=== PATIENT | male | born 1940 | race Caucasian/White ===

== ENCOUNTER 2016-05-18 06:26 | Inpatient (IN) ==
[2016-05-18] MEDS ORDERED: CeFAZolin Pre 2,000 MG/100 ML 2,000 MG/100 ML BAG IVPB ONE (07:05)
[2016-05-18] MEDS ORDERED: Vancomycin 1,250 MG in D5% in Water 250 ML IVPB ONE ×2 (07:05→19:15)
[2016-05-18] MEDS ORDERED: Albuterol 2.5 MG/3 ML NEBULIZER IH ONE (07:05)
[2016-05-18] MEDS ORDERED: Ringers Solution, Lactated 1,000 ML IVC SCH (07:15)
[2016-05-18] MEDS ORDERED: Heparin 1,000 UNITS/500 mL NS 500 ML ONE (07:57)
--- NOTE | 2016-05-18 08:03 | History & Physical Report ---
Date of Encounter: 05/18/16 Time of Encounter: 07:58 24 Hour HP Update - Instructions Instructions: If the History and Physical is less than 30 days old and was completed prior to A.M. admission and or procedure and has NOT been updated on calendar day of procedure please complete this update prior to performing procedure. - Update Patient reports changes in Medical Condition: No Changes in assessment/condition: No Changes in Medication: No Preop tests/diagnostics Reviewed: Yes Surgery Remains Indicated: Yes Consent for Planned Operative Procedure(s) Verified: Yes - Pre-Operative Checklist Preoperative Checklist Indicated: Yes Prophylactic Antibiotic Ordered: Yes (Vancomycin due to MRSA risk) Home Medications Include Beta Patsy: Yes Beta Patsy Taken Today (Day of Surgery): Yes Beta Patsy Taken Yesterday (Day Prior to Surgery): Yes Is VTE Prophylaxis Indicated?: Yes
--- NOTE | 2016-05-18 08:05 | Anesthesia Evaluation PreOp ---
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 (hx CEA; other carotid completely occluded) Other Medical History: Renal (kidney mass being worked up) Anesthesia History: No Prior Anesthetic Complications Alcohol Use: none Drug use: none Medications and Allergies Aspirin 81 mg PO DAILY 05/18/16 [History] Atenolol [Tenormin] 50 mg PO DAILY 05/18/16 [History] Atorvastatin [Lipitor] 40 mg PO HS 05/18/16 [History] Clopidogrel [Plavix] 75 mg PO DAILY 05/18/16 [History] Docusate [Colace] 100 mg PO BID 05/18/16 [History] Hydrocodone/Acetaminophen [[place] 5-325 Tablet] 1 tab PO TID PRN 05/18/16 [ History] Isosorbide MONOnitrate (24 HR) [Imdur] 60 mg PO DAILY 05/18/16 [History] Losartan [Cozaar] 25 mg PO DAILY 05/18/16 [History] Nitroglycerin [Nitrostat] 0.4 mg SL AD PRN 05/18/16 [History] Omeprazole [PriLOSEC] 20 mg PO DAILY 05/18/16 [History] Ranolazine [Ranexa] 500 mg PO BID 05/18/16 [History] Allergies pentazocine [From Talwin] Allergy (Verified 05/18/16 06:55) See Comments simvastatin Allergy (Verified 05/18/16 06:55) See Comments Varenicline [From Chantix] Allergy (Verified 05/18/16 06:55) See Comments Amoxicillin [From Augmentin] Adverse Reaction (Verified 05/18/16 06:55) Nausea clavulanic acid [From Augmentin] Adverse Reaction (Verified 05/18/16 06:55) Nausea codeine Adverse Reaction (Verified 05/18/16 06:55) Nausea - Meds/Allergy Pre-op Review Medications Reviewed: Yes Allergies Reviewed: Yes Beta Blockers on Current Med List: Yes If Beta Blockers taken, Date/Time (Last Dose taken): 05-17-16 atenolol 8 pm Anesthesia Results - Labs Laboratory Tests 05/15/16 05/15/16 05/15/16 14:21 14:21 14:21 WBC 7.5 Hgb 13.1 Hct 39.9 Plt Count 164 PT 14.0 H INR 1.3 APTT 30.9 Sodium 139 Potassium 5.0 H Chloride 110 H Carbon Dioxide 25 BUN 19 Creatinine 1.25 Est GFR ( Amer) > 60 Est GFR (Non-Af Amer) 56 L BUN/Creatinine Ratio 15 Glucose 127 H - Imaging EKG: report reviewed, image reviewed (SB with first degree AVB, RBBB, inferior PA indeterminate age) Anesthesia Exam Last Vital Signs Temp 98.1 F 05/18/16 07:07 Pulse 64 05/18/16 07:07 Resp 18 05/18/16 07:07 BP 115/80 05/18/16 07:07 Pulse Ox 98 05/18/16 07:07 Weight: 76 kg NPO (# of Hours): >> 8 hrs - HEENT Pupil (Motor): Pupils equal, EOMI Mallampati: III Teeth: Poor dentition Oral Opening: Greater than 3 - 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
[2016-05-18] MEDS ORDERED: Heparin 1,000 UNITS/500 mL NS 1,500 ML ONE (08:08)
[2016-05-18] MEDS ORDERED: Vancomycin 1,000 MG VIAL ONE (08:08)
[2016-05-18] MEDS ORDERED: Lidocaine -MPF 2% 2 ML VIAL ONE ×2 (08:11→08:26)
[2016-05-18] MEDS ORDERED: Ondansetron 4 MG/2 ML VIAL ONE (08:11)
[2016-05-18] MEDS ORDERED: *HR* Phenylephrine 10 MG/ML VIAL ONE (08:11)
[2016-05-18] MEDS ORDERED: *HR* Succinylcholine 200 MG/10 ML VIAL IVP ONE (08:11)
[2016-05-18] MEDS ORDERED: Dexamethasone 4 MG/ML VIAL ONE (08:11)
[2016-05-18] MEDS ORDERED: *HR* Etomidate 40 MG/20 ML VIAL IVP ONE (08:11)
[2016-05-18] MEDS ORDERED: *HR* FentaNYL (PF) 100 MCG/2 ML VIAL ONE (08:17)
[2016-05-18] MEDS ORDERED: *HR* Midazolam HCl 2 MG/2 ML VIAL ONE ×2 (08:17→11:53)
[2016-05-18] MEDS ORDERED: EPHEDrine 50 MG/ML VIAL ONE (08:34)
[2016-05-18] MEDS ORDERED: *HR* Remifentanil 1 MG VIAL IVP ONE (09:10)
[2016-05-18] MEDS ORDERED: *HR* Heparin 5,000 UNIT/ML VIAL ONE ×2 (09:22→10:55)
[2016-05-18] MEDS ORDERED: *HR* HYDROmorphone (PF) 1 MG/ML SYRINGE IVP PRN (09:38)
[2016-05-18] MEDS ORDERED: *HR* Labetalol 100 MG/20 ML MDV IVP PRN (09:38)
[2016-05-18] MEDS ORDERED: *HR* EPINEPHrine 1 MG/ML AMPUL ONE (12:16)
[2016-05-18 12:23] LABS: ABG Base Excess -12.7 mEq/L (-2.0 to 3.0); ABG Glucose 201 mg/dL (60-95); ABG HCO3 16.8 mEQ/L (21-27); ABG Hematocrit 23 % (35-51); ABG Ionized Calcium 1.17 mmol/L (1.15-1.35); ABG Oxygen Saturation 100 % (95-98); ABG PCO2 58 mmHg (35-45); ABG PH 7.07 pH Units (7.32-7.45); ABG PO2 346 mmHg (85-104); ABG TCO2 18.6 mEq/L (20-26)
[2016-05-18 12:27] LABS: Blood Gas FiO2 100 %
[2016-05-18] MEDS ORDERED: *HR* Midazolam HCl 5 MG/5 ML VIAL IVP ONE ×2 (12:37→15:17)
[2016-05-18] MEDS ORDERED: *HR* Magnesium Sulfate 2 GM/50 ML PIGGYBACK IVPB ONE (12:51)
[2016-05-18] MEDS ORDERED: *HR* EPINEPHrine 30 MG/30 ML MDV IM ONE (12:51)
[2016-05-18] MEDS ORDERED: FentaNYL (PF) 1,000 MCG in 0.9 % Sodium Chloride 80 ML IVC SCH (13:00)
[2016-05-18] MEDS: FentaNYL (PF) 1,000 MCG in 0.9 % Sodium Chloride 80 ML IVC SCH ×2 (13:00→19:27)
--- NOTE | 2016-05-18 13:09 | Operative Note ---
Date of procedure: 05/18/16 Pre-op diagnosis: Abdominal Aortic Aneurysm Post-op diagnosis: same Procedure: 1. Introduction of catheter into the aorta via right common femoral artery. 2. Introduction of catheter into the aorta via left common femoral artery. 3. Right femoral vessel exposure for endograft placement. 4. Left femoral vessel exposure for endograft placement. 5. Endograft repair of abdominal aortic aneurysm with Cook Zenith graft and one docking limb including radiologic supervision and interpretation. Anesthesia: GETA Surgeon: Salvador Bosch Co-Surgeon: Shoaib Ruiz Estimated blood loss (cc): 400 Specimen: None Condition: stable Disposition: PACU Procedure in Detail: Indications: The patient is a 75 year old male with a history of coronary artery disease, hypertension, hyperlipidemia and an abdominal aortic aneurysm. He previously underwent an end-to side aorto-right femoral-left external iliac artery bypass for peripheral vascualar disease at another hospital. He then developed aneurysmal degeneration of the aorta including the anastamosis. Given his risk of rupture, repair was recommended. Procedure: The patient was identified, brought to the operating room and placed in the supine position on the operating room table. After induction of general endotracheal anesthesia, the patient was cleaned and draped in normal sterile fashion. A two surgeon approach was utilized in order to reduce the patients operative an minimize the risk of complications associated with prolonged anesthesia. A two surgeon approach was also utilized due to the complex nature of his condition and the need for intraoperative decision making. Oblique incisions were made over both groins sharply. Hemostasis was obtained with electrocautery. Using blunt and sharp and electrocautery dissection, the bilateral common, deep and superficial femoral arteries were dissected circumferentially and surrounded with Vesseloops. At this point, the patient received 5000 units of heparin intravenously and then bilateral femoral punctures with large-bore needles were performed. Bentson wires were advanced through the bypass graft limbs into the aorta under fluoroscopic view. Given the anatomy, the main body was selected to be the right side of the patient. The needles were exchanged for bilateral sheaths. On the left, an additional sheath was placed and a third wire was advanced through the [place] iliac vessels into the aorta. A long Pigtail catheter was advanced over the right wire into the aortic arch. The wire was replaced with a Lunderquist wire. The catheter was removed and repositioned in the suprarenal aorta via the left graft limb wire. The main body was inserted over the Lunderquist wire with the contralateral limb being in the anterolateral position. An aortogram was then performed at the level of the renal artery. The graft was positioned just inferior to the renal arteries and the first 2 segments were deployed. Again an aortogram revealed adequate infrarenal placement. The graft was then further opened to the contralateral limb exposed. A final angiogram was performed confirming adequate infrarenal placement. The suprarenal stent was deployed in the usual fashion. Attempts were made to select the contralateral limb, however, due to the angle of the bypass graft, the limb could not be cannulated through the left bypass graft limb. The remaining portion of the main body was deployed, the top cap was retrieved and the introducer was removed. An oblique view of the right pelvis was performed to determine the length of the graft on the right. The graft extension was then advanced on the right and positioned in the usual fashion. The contralateral limb was then selected through the [place] iliac artery with a guiding catheter. Intragraft placement of the wire was confirmed by placing the catheter in the graft and spinning it freely as well as injecting a small amount of contrast. A retrograde angiogram was performed to determine the length of the left limb of the graft. At this point, the patient experienced severe hypotension. His recent angiogram revealed no extravasation of contrast and his abdomen was soft. Chest compressions were initiated. Tension was applied to the Vessel loops in the groin. The bilateral sheaths and wires were then removed. The bilateral arteriotomies were repaired with a running 6-0 Prolene. Antibiotic irrigation was infused into the groin. Platelet rich and platelet poor plasma were infused into the incisions. The bilateral groins were closed with a single layer of 2- 0 Vicryl followed by two layers of 3-0 Vicryl followed by a layer of 3-0 monocryl in the subcuticular region. Sterile dressings were applied. The patient was then extubated and taken to the recovery room in stable condition.
[2016-05-18 13:29] LABS: Basophils % 0.1 %; Eosinophils # 0.2 K/mcL (0.0-0.6); Eosinophils % 1.2 %; Immature Granulocytes % 2.4 % (0-4); Lymphocytes # 2.7 K/mcL (0.6-4.6); Lymphocytes % 19.9 %; Mean Corpuscular Hemoglobin 31.6 pg (28.0-33.3); Mean Corpuscular Volume 95.7 fL (83.0-100.0); Mean Platelet Volume 9.5 fL (9.4-12.4); Monocytes # 0.5 K/mcL (0.0-1.3); Monocytes % 3.4 %; Neutrophils # 9.9 K/mcL (1.6-8.9); Platelet Count 103 K/mcL (140-400); Red Blood Count 2.82 M/mcL (4.19-5.50); Red Cell Distribution Width 15.4 % (11.5-14.5)
[2016-05-18 13:30] LABS: Hemoglobin 8.9 g/dL (12.9-16.9)
[2016-05-18] MEDS ORDERED: Norepinephrine 4 MG in D5% in Water 250 ML IVC SCH (13:30)
[2016-05-18 13:34] LABS: INR 1.4; Prothrombin Time 15.4 Seconds (9.4-12.1)
[2016-05-18 13:42] LABS: Alanine Aminotransferase 9 Units/L (0-55); Albumin/Globulin Ratio 1.3 (1.1-2.2); Alkaline Phosphatase 38 Units/L (38-126); Aspartate Amino Transferase 11 Units/L (5-34); BUN/Creatinine Ratio 19 (6-26); Bilirubin,Total 0.4 mg/dL (0.2-1.2); Blood Urea Nitrogen 18 mg/dL (8-26); Carbon Dioxide 21 mEq/L (19-29); Chloride 111 mEq/L (98-109); Globulin 1.2 g/dL (2.4-3.5); Glucose 282 mg/dL (70-99); Magnesium 2.3 mg/dL (1.6-2.6); Osmolality,Calculated 304 (280-300); Phosphorous 4.6 mg/dL (2.3-4.7); Sodium 141 mEq/L (136-145); eGFR For African Americans > 60 (> 60); eGFR For Non-African Americans > 60 (> 60)
[2016-05-18 13:44] LABS: Albumin 1.6 g/dL (3.5-5.0); Calcium 6.6 mg/dL (8.6-10.8); Potassium 3.6 mEq/L (3.5-4.5); Total Protein 2.8 g/dL (6.0-8.3)
--- NOTE | 2016-05-18 13:58 | Cardiology Consult Note ---
Date of Encounter: 05/18/16 Time of Encounter: 13:54 Assessment and Plan (1) Cardiac arrest Current Visit: Yes Status: Acute Mr. Rosado had cardiac arrest during his abdominal aortic aneurysm endograft surgery performed 05/18/2016. After regaining a pulse he required synchronized cardioversion 2 in the OR for sustained ventricular tachycardia thereafter he was transferred to the ICU requiring synchronized cardioversion 1 for sustained ventricular tachycardia. Patient is currently intubated and requiring vasopressor support in the ICU. Mr. Rosado has a significant cardiovascular history is likely contributing to his current state. Patient follows up with Cardiology in [place], documentation to be requested. EKG demonstrates RBBB Cardiac history: Patient left heart catheterization at [facility] January 2011 that demonstrated mild mitral regurgitation and inferior hypokinesis. EF 50%. Left main normal. LAD proximal stent patent, midportion occluded. HILL to distal LAD patent. Terminal LAD occluded. Left collaterals noted. Circumflex mid 50 % stenosis. OM1 ostial 90% stenosis. RCA occluded. SVG to RCA occluded. Left to right collaterals noted. Carotid angiogram January 2011 at [facility] demonstrated right ICA patent status post CEA. A left ICA occluded. Adequate therapy was recommended at that time. Abdominal arteriogram on January 2011 at [facility] demonstrated left renal artery stent patent. Right renal artery 80-90% proximal stenosis. Large infrarenal aneurysm. Aorta to right from oral and aorta to left iliac bypass widely patent. Pharmacologic nuclear stress test performed at [facility] December 2012 demonstrates large partially reversible apical to basal inferior and inferior lateral defect with associated severe hypokinesis. Findings were consistent with ischemia in addition to prior [place]. Echocardiogram December 2012 at [facility] demonstrated EF of 55%. Mild concentric left ventricular hypertrophy. Pseudo-normal mitral inflow pattern. Mitral pulmonary hypertension. No significant valvular dysfunction noted. Neck CT angiogram August 2009 at [facility] demonstrate left main distal nonobstructing plaque. LAD proximal headache calcification precluding assessment. Occluded mid LAD. Diagonal branches not well assessed. Circumflex nonobstructing proximal calcification. OM1 small. ON to heavily calcified precluding analysis. RCA occluded at the ostium. Distal RCA fill via collaterals. HILL to LAD patent. Carotid duplex scan December 2012 at [facility] demonstrate right common carotid right internal carotid mild stenosis. No stenosis of left common carotid. Severe stenosis at the bifurcation. Severe stenosis of the internal carotid artery. Carotid duplex scan August 2015 demonstrates right ICA has severe 60-79% stenosis. Left ICA has non-stenotic plaque. CT of the abdomen and pelvis with contrast on August 2015 demonstrates abdominal aortic aneurysm increased in size measures 6.5 cm in transverse dimension, increased compared to 5.8 cm on a previous study. Complex left renal mass which is stable in size and appearance. New small complex mass of the left lower kidney concerning for a second neoplasm. 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 Plan: - Continue stabilize patient status post cardiac arrest per pulmonary ICU team. - Patient is hypotensive continue to hold antihypertensive medications including his beta [place]. - Plan to restart atorvastatin when patient is extubated and passed a swallow test. - Patient status post AAA endograft performed today continue to hold Plavix and aspirin. - Hold Ranexa. - Echocardiogram performed at patient bedside results pending. - Start Amiodarone drip for rhythm stabilization. (2) CAD (coronary artery disease) Current Visit: Yes Status: Acute Patient's significant coronary artery disease as listed above. Qualifiers: Qualified Code(s): I25.10 - Atherosclerotic heart disease of [place] coronary artery without angina pectoris (3) PAD (peripheral artery disease) Current Visit: Yes Status: Acute Patient has known history of peripheral artery disease with claudication. Patient follows up with Dr. Bosch. Continue to monitor peripheral vascular flow during inpatient stay. (4) Abdominal aortic aneurysm Current Visit: Yes Status: Acute Patient has a known abdominal aortic aneurysm for which he was admitted and underwent endograft repair. The size of the aneurysm is 4.8 x 6.54cm. we will defer management and care status post procedure vascular team. Qualifiers: Qualified Code(s): I71.4 - Abdominal aortic aneurysm, without rupture (5) HTN (hypertension) Current Visit: Yes Status: Acute Patient has known history of hypertension for which he was taking Cozaar and atenolol. Patient is currently hypotensive status post cardiac arrest requiring vasopressor support. Plan to continue holding antihypertensives at this time. Qualifiers: Qualified Code(s): I10 - Essential (primary) hypertension (6) HLD (hyperlipidemia) Current Visit: Yes Status: Acute Patient's known history of hyperlipidemia. Plan to continue management as patient stabilizes. Qualifiers: Qualified Code(s): E78.5 - Hyperlipidemia, unspecified (7) Carotid artery disease Current Visit: Yes Status: Acute Patient has known history of carotid artery stenosis as discussed above. Qualifiers: Qualified Code(s): I77.9 - Disorder of arteries and arterioles, unspecified (8) Tobacco abuse Current Visit: Yes Status: Acute Patient is a current every day smoker likely contributing to his diffuse vascular disease. (9) Metabolic acidosis Current Visit: Yes Status: Acute Patient is status post cardiac arrest currently intubated in the ICU requiring vasopressor support. Lactic acid is 7.6, pH is 7.07, PCO2 58, PO2 346, bicarbonate 16.8, CO2 18.6, O2 saturation 100%. Anion gap: 12. Metabolic acidosis secondary to cardiac arrest. Plan: Patient per ICU team. Discussion w patient/family: The assessment and plan as outlined above was discussed with the patient and/or family members who expressed understanding and agreement. All questions were answered. Thank you for involving us in the care of your patient. Please call with any questions. History of Present Illness Consult date: 05/18/16 Requesting physician: Georgi Holt Consult reason: Cardiac Arrest Chief complaint: Cardiac Arrest History of present illness: Mr. Rosado is a 75 year old male with known history of CAD, CABG x2, HTN, HLD, PAD with claudication with history of femoral bypass, Abdominal Aortic Aneurysm , Iliac aneurysm, Cardiac Stent, Carotid stenosis, Renal artery stenosis was admitted to the ICU s/p cardiac arrest while undergoing endograph repair of his abdominal aortic aneurysm measuring 4.8x6.54cm. Patient required 2 rounds of synchronized cardioversion in the OR prior to transfer and Upon arrival to the ICU he required cardioversion for sustained v-tach. History for required surgery : developed an infrarenal abdominal aortic aneurysm and the proximal anastamosis of his aortobifemoral bypass arises from the aneurysm. Past Med Surg Social Fam HX - Past Medical History Medical history: aortic aneurysm, GERD Psychiatric history: no psych history - Past Surgical History Surgical History: carotid endarterectomy - Social History Smoking Status: Current every day smoker Packs per day: 1 Smokeless Tobacco Status: No Alcohol use: none Drug use: none Medications and Allergies Aspirin 81 mg PO DAILY 05/18/16 [History] Atenolol [Tenormin] 50 mg PO DAILY 05/18/16 [History] Atorvastatin [Lipitor] 40 mg PO HS 05/18/16 [History] Clopidogrel [Plavix] 75 mg PO DAILY 05/18/16 [History] Docusate [Colace] 100 mg PO BID 05/18/16 [History] Hydrocodone/Acetaminophen [[place] 5-325 Tablet] 1 tab PO TID PRN 05/18/16 [ History] Isosorbide MONOnitrate (24 HR) [Imdur] 60 mg PO DAILY 05/18/16 [History] Losartan [Cozaar] 25 mg PO DAILY 05/18/16 [History] Nitroglycerin [Nitrostat] 0.4 mg SL AD PRN 05/18/16 [History] Omeprazole [PriLOSEC] 20 mg PO DAILY 05/18/16 [History] Ranolazine [Ranexa] 500 mg PO BID 05/18/16 [History] Allergies pentazocine [From Talwin] Allergy (Verified 05/18/16 06:55) See Comments simvastatin Allergy (Verified 05/18/16 06:55) See Comments Varenicline [From Chantix] Allergy (Verified 05/18/16 06:55) See Comments Amoxicillin [From Augmentin] Adverse Reaction (Verified 05/18/16 06:55) Nausea clavulanic acid [From Augmentin] Adverse Reaction (Verified 05/18/16 06:55) Nausea codeine Adverse Reaction (Verified 05/18/16 06:55) Nausea ROS unobtainable: due to endotracheal tube All Systems Review: A 10-system review of systems was performed and is negative for pertinent findings except as documented above in the HPI. Physical Examination Other: Gen: 5-year-old male intubated and sedated in the ICU. HEENT: Normocephalic, atraumatic, pupils symmetric, mucous membranes are moist and pale, endotracheal tube is in oral cavity, neck is supple trachea midline. Chest: Symmetric bilateral correlating with mechanical ventilator support. Cardiac: Tachycardic, no murmurs were appreciated upon auscultation Respiratory: Lung sounds were diminished in all lung [place], no crackles or wheezing were appreciated upon auscultation. Midsternal scar from previous CABG was visualized. Abdomen: Soft, bilateral inferior abdominal incision sites were clear of drainage and covered with dressing. Abdominal aortic pulses palpable. Extremities: All 4 extremities were symmetric bilateral, pulses were diminished and radial dorsal pedal posterior tibial comparable and bilateral extremities. Skin was warm and pale. Results 05/18/16 13:15 05/18/16 13:15 Lab Results 05/18/16 05/18/16 05/18/16 13:15 13:15 13:15 WBC 13.6 H D Hgb 8.9 L D Hct 27.0 L Plt Count 103 L INR 1.4 Sodium 141 Potassium 3.6 D Chloride 111 H Carbon Dioxide 21 BUN 18 Creatinine 0.95 Glucose 282 H Calcium 6.6 L D Magnesium 2.3 Total Bilirubin 0.4 AST 11 ALT 9 Alkaline Phosphatase 38 Troponin I 05/18/16 13:15 WBC Hgb Hct Plt Count INR Sodium Potassium Chloride Carbon Dioxide BUN Creatinine Glucose Calcium Magnesium Total Bilirubin AST ALT Alkaline Phosphatase Troponin I 0.08 H* Consult Discharge Plan - Plan Referrals: John Peace MD [Primary Care Provider] - 05/24/16 9:45 am Salvador Bosch MD [Partnered Physician] - 06/28/16 1:00 pm
[2016-05-18 14:02] LABS: Activated Partial Thrombo Time > 360.0 Seconds (26.0-36.0)
[2016-05-18 14:08] LABS: Heparin anti-factor XA UFH 0.31 IU/mL (0.30-0.70)
[2016-05-18] MEDS ORDERED: Naloxone 0.4 MG/ML INJ IVP PRN (14:23)
[2016-05-18] MEDS ORDERED: Lacri-Lube 3.5 GM TUBE BOTH EYES PRN (14:48)
[2016-05-18] MEDS: Norepinephrine 4 MG in D5% in Water 250 ML IVC SCH ×2 (15:00→17:34)
--- NOTE | 2016-05-18 15:00 | Pulmonology History & Physical ---
<Rebel Walsh W - Last Filed: 05/18/16 15:41> History of Present Illness HPI: Mr. Rosado is a 75 year old male Medications and Allergies Aspirin 81 mg PO DAILY 05/18/16 [History] Atenolol [Tenormin] 50 mg PO DAILY 05/18/16 [History] Atorvastatin [Lipitor] 40 mg PO HS 05/18/16 [History] Clopidogrel [Plavix] 75 mg PO DAILY 05/18/16 [History] Docusate [Colace] 100 mg PO BID 05/18/16 [History] Hydrocodone/Acetaminophen [[place] 5-325 Tablet] 1 tab PO TID PRN 05/18/16 [ History] Isosorbide MONOnitrate (24 HR) [Imdur] 60 mg PO DAILY 05/18/16 [History] Losartan [Cozaar] 25 mg PO DAILY 05/18/16 [History] Nitroglycerin [Nitrostat] 0.4 mg SL AD PRN 05/18/16 [History] Omeprazole [PriLOSEC] 20 mg PO DAILY 05/18/16 [History] Ranolazine [Ranexa] 500 mg PO BID 05/18/16 [History] Allergies pentazocine [From Talwin] Allergy (Verified 05/18/16 06:55) See Comments simvastatin Allergy (Verified 05/18/16 06:55) See Comments Varenicline [From Chantix] Allergy (Verified 05/18/16 06:55) See Comments Amoxicillin [From Augmentin] Adverse Reaction (Verified 05/18/16 06:55) Nausea clavulanic acid [From Augmentin] Adverse Reaction (Verified 05/18/16 06:55) Nausea codeine Adverse Reaction (Verified 05/18/16 06:55) Nausea All Systems: A 10-system review of systems was performed and is negative for pertinent findings except as documented above in the HPI. Physical Examination Vital Signs: Vital Signs, Last 4 Hours Temp Pulse Resp BP Pulse Ox 05/18/16 15:00 105 19 110/80 100 05/18/16 14:00 102 19 94/67 100 05/18/16 13:00 95.9 F L 106 20 134/76 100 05/18/16 12:45 20 100 Results - Laboratory Findings CBC and BMP: 05/18/16 13:15 05/18/16 13:15 ABG ABG pH 7.07 pH Units (7.32-7.45) L* 05/18/16 12:03 ABG pCO2 58 mmHg (35-45) H 05/18/16 12:03 ABG pO2 346 mmHg (85-104) H 05/18/16 12:03 ABG O2 Saturation 100 % (95-98) H 05/18/16 12:03 PT/INR, D-dimer PT 15.4 Seconds (9.4-12.1) H 05/18/16 13:15 Abnormal lab findings: Abnormal lab results WBC 13.6 K/mcL (4.3-11.1) H D 05/18/16 13:15 RBC 2.82 M/mcL (4.19-5.50) L 05/18/16 13:15 Hgb 8.9 g/dL (12.9-16.9) L D 05/18/16 13:15 Hct 27.0 % (37.5-50.1) L 05/18/16 13:15 RDW 15.4 % (11.5-14.5) H 05/18/16 13:15 Plt Count 103 K/mcL (140-400) L 05/18/16 13:15 Neutrophils # 9.9 K/mcL (1.6-8.9) H 05/18/16 13:15 PT 15.4 Seconds (9.4-12.1) H 05/18/16 13:15 APTT > 360.0 Seconds (26.0-36.0) H* D 05/18/16 13:15 ABG pH 7.07 pH Units (7.32-7.45) L* 05/18/16 12:03 ABG pCO2 58 mmHg (35-45) H 05/18/16 12:03 ABG pO2 346 mmHg (85-104) H 05/18/16 12:03 ABG HCO3 16.8 mEQ/L (21-27) L 05/18/16 12:03 ABG Total CO2 18.6 mEq/L (20-26) L 05/18/16 12:03 ABG O2 Saturation 100 % (95-98) H 05/18/16 12:03 ABG Base Excess -12.7 mEq/L (-2.0 to 3.0) L 05/18/16 12:03 ABG Hematocrit 23 % (35-51) L 05/18/16 12:03 Glucose 201 mg/dL (60-95) H 05/18/16 12:03 Lactate 7.6 mmol/L (0.7-2.1) H* 05/18/16 12:03 Chloride 111 mEq/L (98-109) H 05/18/16 13:15 Glucose 282 mg/dL (70-99) H 05/18/16 13:15 POC Glucose 247 (58-89) H 05/18/16 12:47 Calculated Osmolality 304 (280-300) H 05/18/16 13:15 Lactic Acid 7.8 mmol/L (0.5-2.2) H* 05/18/16 13:15 Calcium 6.6 mg/dL (8.6-10.8) L D 05/18/16 13:15 Ionized Calcium 1.01 mmol/L (1.15-1.35) L 05/18/16 13:15 Troponin I 0.08 ng/mL (0-0.03) H* 05/18/16 13:15 Serum Total Protein 2.8 g/dL (6.0-8.3) L 05/18/16 13:15 Albumin 1.6 g/dL (3.5-5.0) L 05/18/16 13:15 Globulin 1.2 g/dL (2.4-3.5) L 05/18/16 13:15 - Attending Attestation I examined this patient and my medical decision-making was reviewed with the [employer]/PA/Advanced Practice Nurse/Resident Physician. I agree with the documented findings, disposition and treatment plan as described except to the extent set forth below. I spent 45min of Critical Care time with this patient. It involved decision making of high complexity to assess, manipulate, and support vital organ system failure and/or to prevent further life threatening deterioration of the patient' s condition. The time involved in the performance of separately reportable procedures was not counted toward critical care time. Patient seen and examined at bedside Labs, radiology, chart personally reviewed. All lines examined without evidence of infection. Neuro: S/p Cardiac Arrest noted to have movement of all extremities and breathing over vent. Sedation/Analgesia for intubation and s/p ACLS Goal RASS (- 2). No indication for hypothermia given responsive post arrest and hemodynamic instability Pulm: intubated with acceptable oxygenation/ventilation (goal sat around 92%); ETT high but repositioned; ABG reassuring. AM abg Cards/Vasc: POD#0 s/p Endograft repair of abdominal aortic aneurysm in setting of vasculopathy and severe underlying CAD with cardiomyopathy s/p ACLS x 3 intraoperatively now on vasopressor for BP support possibly related to stunned myocardium. ?mycardial ischemia trop pending stat ECHO ordered Cards Consult. Wean vasopressor for goal MAP 65. no to r/o hemorrhagic shock but no clear evidence of bleeding post op. D/w Vascular Surgery and Anesthesia attendings. Trend lactate Q6. Monitor distal pulses hourly FEN-GI: PPi for GI prophy. Renal: BUN/Cre stable; rivera placed for strict I/Os replace Lytes per protocol ID: No clear evidence of infection at this time cont to monitor Heme/Onc: on Heparin s/p vascular surgery. monitor h/h Goal hgb >9 monitor for hemorrhage Endo: glucose monitored Integ: skin care per ICU protocol to prevent ulcers CODE: Full and family updated at bedside. <Georgi Holt G - Last Filed: 05/18/16 17:14> Date of Encounter: 05/18/16 Time of Encounter: 14:57 Assessment and Plan (1) Cardiac arrest Current visit: Yes Status: Acute With spontaneous return of circulation. Patient had PEA intraoperatively and had approximately 5 minutes of ACLS, pulse was returned and the patient had monomorphic ventricular tachycardia for which he was cardioverted twice in the operating room. Upon arrival he is using patien did have one more episode of ventricular tachycardia and was cardioverted.hypothermia protocol is now warranted at this time as the patient has spontaneous movements and reflexes are present. Cardiology consulted. (2) Abdominal aortic aneurysm Current visit: Yes Status: Acute Status post endograft repair. Patient had cardiac arrest intraoperatively discussed above. No evidence of active bleeding at this time. We will continue to monitor. Vascular surgery is following. Qualifiers: Presence of rupture: without rupture Qualified Code(s): I71.4 - Abdominal aortic aneurysm, without rupture (3) CAD (coronary artery disease) Current visit: Yes Status: Acute Status post CABG patient has severe coronary artery disease. Patient likely had myocardial ischemia due to hypotension during surgery as discussed above. This could have precipitated his abnormal heart rhythm. Cardiology is following and do not recommend cardiac catheterization at this time. Qualifiers: Coronary Disease-Associated Artery/Lesion type: unspecified vessel or lesion type [place] vs. transplanted heart: [place] heart Associated angina: without angina Qualified Code(s): I25.10 - Atherosclerotic heart disease of [place] coronary artery without angina pectoris (4) HLD (hyperlipidemia) Current visit: Yes Status: Acute Qualifiers: Hyperlipidemia type: unspecified Qualified Code(s): E78.5 - Hyperlipidemia , unspecified (5) HTN (hypertension) Current visit: Yes Status: Acute Patient hypotensive on arrival requiring pressor therapy. We will continue to monitor. Hold antihypertensive medications at this time. Qualifiers: Hypertension type: essential hypertension Qualified Code(s): I10 - Essential (primary) hypertension (6) DVT prophylaxis Current visit: Yes Status: Acute Patient received heparin and vascular surgery, APTT is greater than 360. We will hold off on pharmacologic prophylaxis at this time. Patient has EPCDs on. History of Present Illness Chief complaint: Cardiac arrest HPI: Mr. Rosado is a 75 year old male with history of peripheral vascular disease, coronary disease who presented to the ICU status post arrest in surgery for an endovascular repair of an Abdominal aortic aneurysm. Patient presented as an outpatient for AAA repair and during surgery the patient became severely hypotensive and had several episodes of sustained ventricular tachycardia. Patient had several rounds of ACLS including compressions and significant as cardioversions. Pulse was retained. The surgery was aborted and the patient was transferred to the ICU in critical condition. Upon arrival in the ICU the patient was hypotensive receiving pulsed doses of epinephrine for blood pressure support. While Sari is a patient had one episode of sustained ventricular tachycardia requiring significant as cardioversion. Since being in the ICU the patient was breathing over the vent, coughing, having spontaneous movements, however he would not respond to verbal stimuli. Past Med Surg Social Fam HX - Past Medical History Medical history: aortic aneurysm, GERD Psychiatric history: no psych history - Past Surgical History Surgical History: carotid endarterectomy - Social History Smoking Status: Current every day smoker Packs per day: 1 Smokeless Tobacco Status: No Alcohol use: none Drug use: none ROS unobtainable: due to endotracheal tube All Systems: A 10-system review of systems was performed and is negative for pertinent findings except as documented above in the HPI. Physical Examination Vital Signs: Vital Signs, Last 4 Hours Temp Pulse Resp BP Pulse Ox 05/18/16 14:00 102 19 94/67 100 05/18/16 13:00 95.9 F L 106 20 134/76 100 05/18/16 12:45 20 100 General appearance: no acute distress Effort: normal Auscultation: bilateral: diminished breath sounds Cardiovascular: other (Regular rhythm, tachycardic) Gastrointestinal: absent bowel sounds, soft, non-tender, non-distended, other ( Pulsatile Mass felt in the abdomen, no rigidity.) Extremities: no cyanosis, no edema, no clubbing unable to assess due to mental status Results - Laboratory Findings CBC and BMP: 05/18/16 16:45 05/18/16 13:15 ABG ABG pH 7.07 pH Units (7.32-7.45) L* 05/18/16 12:03 ABG pCO2 58 mmHg (35-45) H 05/18/16 12:03 ABG pO2 346 mmHg (85-104) H 05/18/16 12:03 ABG O2 Saturation 100 % (95-98) H 05/18/16 12:03 PT/INR, D-dimer PT 15.4 Seconds (9.4-12.1) H 05/18/16 13:15 Abnormal lab findings: Abnormal lab results WBC 13.6 K/mcL (4.3-11.1) H D 05/18/16 13:15 RBC 2.82 M/mcL (4.19-5.50) L 05/18/16 13:15 Hgb 8.9 g/dL (12.9-16.9) L D 05/18/16 13:15 Hct 27.0 % (37.5-50.1) L 05/18/16 13:15 RDW 15.4 % (11.5-14.5) H 05/18/16 13:15 Plt Count 103 K/mcL (140-400) L 05/18/16 13:15 Neutrophils # 9.9 K/mcL (1.6-8.9) H 05/18/16 13:15 PT 15.4 Seconds (9.4-12.1) H 05/18/16 13:15 APTT > 360.0 Seconds (26.0-36.0) H* D 05/18/16 13:15 ABG pH 7.07 pH Units (7.32-7.45) L* 05/18/16 12:03 ABG pCO2 58 mmHg (35-45) H 05/18/16 12:03 ABG pO2 346 mmHg (85-104) H 05/18/16 12:03 ABG HCO3 16.8 mEQ/L (21-27) L 05/18/16 12:03 ABG Total CO2 18.6 mEq/L (20-26) L 05/18/16 12:03 ABG O2 Saturation 100 % (95-98) H 05/18/16 12:03 ABG Base Excess -12.7 mEq/L (-2.0 to 3.0) L 05/18/16 12:03 ABG Hematocrit 23 % (35-51) L 05/18/16 12:03 Glucose 201 mg/dL (60-95) H 05/18/16 12:03 Lactate 7.6 mmol/L (0.7-2.1) H* 05/18/16 12:03 Chloride 111 mEq/L (98-109) H 05/18/16 13:15 Glucose 282 mg/dL (70-99) H 05/18/16 13:15 POC Glucose 247 (58-89) H 05/18/16 12:47 Calculated Osmolality 304 (280-300) H 05/18/16 13:15 Lactic Acid 7.8 mmol/L (0.5-2.2) H* 05/18/16 13:15 Calcium 6.6 mg/dL (8.6-10.8) L D 05/18/16 13:15 Ionized Calcium 1.01 mmol/L (1.15-1.35) L 05/18/16 13:15 Troponin I 0.08 ng/mL (0-0.03) H* 05/18/16 13:15 Serum Total Protein 2.8 g/dL (6.0-8.3) L 05/18/16 13:15 Albumin 1.6 g/dL (3.5-5.0) L 05/18/16 13:15 Globulin 1.2 g/dL (2.4-3.5) L 05/18/16 13:15 - VTE Documentation of Mechanical Device: Intermittent pneumatic compression device
--- NOTE | 2016-05-18 15:09 | ECHO - Doppler Report ---
Echocardiogram Name: Khang Rosado Date of Study: 05/18/2016 Date: 1940 Ht: 69.0 in Medical Record#: [id number] Age: 75 Wt: 165.0 lb Gender: Male BSA: 1.9 Order #: [id number] Location: [facility] Room #: ICU4 Reading Physician: Georgi Coon MD, [facility] Resident Care Technician: Risa Murillo RVT Ordering Physician: Georgi Holt DO Primary Physician: John Peace MD Indications: Cardiac Arrest Impressions: Technically sub-optimal due to poor echocardiographic windows and clinical status. Mild left ventricular systolic dysfunction, LVEF 45-50%. There is severe hypokinesis of the basal-mid inferior wall and basal-mid inferolateral wall. Moderate concentric left ventricular hypertrophy. Right ventricle was poorly visualized on this study. No significant valvular dysfunction. Unable to estimate RVSP due to lack of TR jet. Mildly dilated proximal ascending aorta, measuring 4.1 cm. Abnormal results were communicated to the inpatient cardiology consult service. Left Ventricular Wall Motion: Rest Echo Findings The mid inferior, basal inferior, mid inferior lateral and basal inferior lateral ibarra were hypokinetic. All other wall segments showed normal motion. Findings: Study Quality * Technically sub-optimal due to poor echocardiographic windows and clinical status. ECG Findings * Sinus tachycardia with bundle branch block. Left Ventricle * Mild left ventricular systolic dysfunction, LVEF 45-50%. There is severe hypokinesis of the basal-mid inferior wall and basal-mid inferolateral wall. * Normal LV chamber size. * Moderate concentric left ventricular hypertrophy. * Indeterminate diastolic function. Right Ventricle * Right ventricle was poorly visualized on this study. Left Atrium * Normal left atrial size. Right Atrium * Normal right atrial size. Aorta * Mildly dilated proximal ascending aorta, measuring 4.1 cm. Pericardium * There is no pericardial effusion present. IVC * The IVC is not well evaluated. Aortic Valve * Aortic valve not well visualized. * No aortic stenosis. * Trace aortic regurgitation. Mitral Valve * Mild mitral annular calcification * No mitral stenosis. * No mitral regurgitation. Tricuspid Valve * Tricuspid valve not well visualized. * No tricuspid stenosis. * Trace tricuspid regurgitation. * Unable to estimate RVSP due to lack of TR jet. Pulmonic Valve * Pulmonic valve not well visualized. * No pulmonic stenosis. * No pulmonic regurgitation. History History of CAD/PTCA Coronary Artery Bypass Graft 08/2011 a Previous Echo was performed. Measurements: BP: 115/ 80 2D Normal Values IVSd: 1.50 cm 0.6 - 1.0 cm LVIDd: 4.40 cm 3.7 - 5.6 cm LVPWd: 1.40 cm 0.6 - 1.1 cm LVIDs: 3.50 cm 1.5 - 3.6 cm AO: 4.10 cm < 4.0 cm LA volume: 51 Updated by Georgi Coon MD, [facility] on 05/18/2016 3:04:38 PM electronically signed on 05/18/2016 3:05:20 PM with status of Final Wall Motion [place]: 1=Normal, 2=Hypokinesis, 3=Akinesis, 4=Dyskinesis, 5=Aneurysmal, 6=Hyperkinetic, X=Not Visualized (Blank)=Missing
[2016-05-18] MEDS: ceFAZolin 2,000 MG in D5% in Water 100 ML IVPB SCH ×2 (15:23→22:58)
[2016-05-18] MEDS ORDERED: *HR* Midazolam HCl 2 MG/2 ML VIAL IVP ONE ×3 (15:26→22:43)
[2016-05-18] MEDS ORDERED: Amiodarone Premix 360 MG/200 ML BAG IVC ONE (15:44)
[2016-05-18] MEDS ORDERED: Amiodarone Premix 150 MG/100 ML BAG IVPB ONE (15:44)
--- NOTE | 2016-05-18 16:03 | Procedure Note ---
Date of procedure: 05/18/16 Pre-op diagnosis: Hypotension Post-op diagnosis: same Procedure: The procedure was considered emergent, consent was unable to be obtained. The right internal jugular vein was surveyed using ultrasound and deemed to be suitable target. Patient was cleaned and draped in the usual sterile fashion. Under ultrasound guidance introduced needle was advanced into the right internal jugular vein. Dark red, nonpulsatile blood flow was returned. The guidewire was advanced through the introducer needle and into the right internal jugular vein without difficulty. The needle was removed and a keyshawn in the skin was made using a scalpel. A dilator was advanced over the guidewire and the soft tissues were dilated. The catheter was then advanced over the guidewire into the right internal jugular vein without difficulty. The guidewire was removed intact. All 3 ports were tested and found to draw blood and flushed easily. The catheter was sutured in place. Biopatch and sterile dressing were applied. Chest x-ray confirmed placement. The patient tolerated the procedure well, there were no immediate complications. Anesthesia: GETA Surgeon: Georgi Holt Estimated blood loss (cc): 5 IV fluids (cc): 20 Pathology: none sent Condition: critical Disposition: ICU
[2016-05-18 16:35] LABS: ABG Base Excess -3.1 mEq/L (-2.0 to 3.0); ABG HCO3 23.6 mEQ/L (21-27); ABG PCO2 48 mmHg (35-45); ABG PO2 365 mmHg (85-104); ABG TCO2 25.1 mEq/L (20-26)
[2016-05-18 16:36] LABS: ABG Oxygen Saturation 100 % (95-98)
[2016-05-18 16:37] LABS: Blood Gas FiO2 100 %
[2016-05-18] MEDS: Lacri-Lube 3.5 GM TUBE BOTH EYES SCH ×3 (16:56→23:36)
[2016-05-18 16:57] LABS: Hematocrit 31.9 % (37.5-50.1); Hemoglobin 10.8 g/dL (12.9-16.9); Mean Corpuscular HGB Conc 33.9 g/dL (31.6-35.5); Mean Corpuscular Hemoglobin 31.4 pg (28.0-33.3); Mean Corpuscular Volume 92.7 fL (83.0-100.0); Mean Platelet Volume 9.5 fL (9.4-12.4); Platelet Count 124 K/mcL (140-400); Red Blood Count 3.44 M/mcL (4.19-5.50); Red Cell Distribution Width 15.7 % (11.5-14.5)
[2016-05-18 17:04] LABS: ABG Base Excess -3.6 mEq/L (-2.0 to 3.0); ABG HCO3 23.1 mEQ/L (21-27); ABG Oxygen Saturation 100 % (95-98); ABG PCO2 48 mmHg (35-45); ABG PH 7.29 pH Units (7.32-7.45); ABG PO2 242 mmHg (85-104); ABG TCO2 24.6 mEq/L (20-26)
[2016-05-18 17:05] LABS: Blood Gas FiO2 80 %
[2016-05-18] MEDS ORDERED: Aspirin 325 MG TABLET PO ONE (17:28)
[2016-05-18] MEDS ORDERED: *HR* Heparin 5,000 UNIT/ML VIAL IVP PRN ×2 (17:54)
[2016-05-18] MEDS ORDERED: Vancomycin 1,250 MG in D5% in Water 250 ML IVPB SCH (18:00)
[2016-05-18] MEDS: EPINEPHrine 1 MG in D5% in Water 250 ML IVC SCH ×2 (18:10→23:40)
[2016-05-18 18:46] LABS: INR 1.4; Prothrombin Time 14.8 Seconds (9.4-12.1)
[2016-05-18] MEDS ORDERED: *HR* Dextrose 50 % in Water (Syg) 50 ML SYRINGE IVP PRN (18:58)
[2016-05-18] MEDS: Heparin 25,000 UNIT/500 ML D5W 25,000 UNIT/500 ML MLS IVC SCH (20:01)
[2016-05-18] MEDS: Chlorhexidine Rinse 15 ML MOUTHWASH MM SCH (20:22)
[2016-05-18 20:27] LABS: ABG Base Excess -5.2 mEq/L (-2.0 to 3.0); ABG HCO3 21.6 mEQ/L (21-27); ABG Oxygen Saturation 98 % (95-98); ABG PCO2 47 mmHg (35-45); ABG PH 7.27 pH Units (7.32-7.45); ABG PO2 114 mmHg (85-104)
[2016-05-18 20:28] LABS: Blood Gas FiO2 50 %
[2016-05-18] MEDS: Insulin Human Regular 100 UNIT in 0.9 % Sodium Chloride 100 ML IVC SCH (21:00)
[2016-05-18] MEDS ORDERED: Potassium Chloride 40 MEQ/200 ML BAG IVPB PRN (21:43)
[2016-05-18] MEDS ORDERED: Potassium Phosphate 44 MEQ in 0.9 % Sodium Chloride 250 ML IVPB PRN (21:43)
[2016-05-18] MEDS ORDERED: 0.9 % Sodium Chloride 500 ML IVC ONE (21:45)
[2016-05-18] MEDS: Amiodarone Premix 360 MG/200 ML BAG IVC SCH (22:16)
[2016-05-18 22:20] LABS: Calcium 6.8 mg/dL (8.6-10.8); Phosphorous 3.7 mg/dL (2.3-4.7); Potassium 4.9 mEq/L (3.5-4.5)
[2016-05-18 22:21] LABS: Albumin 2.8 g/dL (3.5-5.0)
--- NOTE | 2016-05-18 22:30 | Vascular/Endovas Progress Note ---
Date of Encounter: 05/18/16 Time of Encounter: 18:00 - Assessment and plan (1) Abdominal aortic aneurysm Current Visit: Yes Status: Chronic Patient underwent endograft repair of his aortic aneurysm today. The patient developed profound hypotension and arrhytmia during the procedure. He required resuscitation and is now intubated in the ICU requiring pressors. His echo was reviewed and he was discussed with the ICU team. Will continue with supportive care and wean the vent and pressors as tolerated. The family was updated regarding his condition. Qualifiers: Presence of rupture: without rupture Qualified Code(s): I71.4 - Abdominal aortic aneurysm, without rupture (2) CAD (coronary artery disease) Current Visit: Yes Status: Acute Qualifiers: Coronary Disease-Associated Artery/Lesion type: unspecified vessel or lesion type [place] vs. transplanted heart: [place] heart Associated angina: without angina Qualified Code(s): I25.10 - Atherosclerotic heart disease of [place] coronary artery without angina pectoris (3) Carotid artery disease Current Visit: Yes Status: Chronic Qualifiers: Laterality: bilateral Qualified Code(s): I77.9 - Disorder of arteries and arterioles, unspecified (4) HLD (hyperlipidemia) Current Visit: Yes Status: Chronic Qualifiers: Hyperlipidemia type: mixed hyperlipidemia Qualified Code(s): E78.2 - Mixed hyperlipidemia (5) HTN (hypertension) Current Visit: Yes Status: Chronic Qualifiers: Hypertension type: essential hypertension Qualified Code(s): I10 - Essential (primary) hypertension (6) PAD (peripheral artery disease) Current Visit: Yes Status: Chronic (7) Tobacco abuse Current Visit: Yes Status: Chronic - Subjective Interval history: Patient is sedated and intubated, appears stable. Vital Signs, Last 4 Hours Pulse Resp BP Pulse Ox 05/18/16 21:58 66 26 100 05/18/16 21:00 61 22 125/75 96 05/18/16 20:20 22 139/72 96 05/18/16 20:00 66 22 148/69 97 05/18/16 18:29 18 97 - Physical Examination Cardiac: Present: Reg Rate and Rhythm Lungs: Present: Normal Breath Sounds Neuro: Present: Other (sedated) Vascular: Present: Surgical incisions (incisions without hematoma) Abdomen: Present: Soft, Other (BS present) - VTE Documentation of Mechanical Device: Intermittent pneumatic compression device Results 05/19/16 03:30 05/19/16 03:30 Lab Results, Last 24 hours 05/18/16 05/18/16 05/18/16 13:15 13:15 13:15 WBC 13.6 H D Hgb 8.9 L D Hct 27.0 L Plt Count 103 L INR 1.4 APTT > 360.0 H* D Sodium 141 Potassium 3.6 D Chloride 111 H Carbon Dioxide 21 BUN 18 Creatinine 0.95 Glucose 282 H Calcium 6.6 L D Magnesium 2.3 Total Bilirubin 0.4 AST 11 ALT 9 Alkaline Phosphatase 38 Troponin I 05/18/16 05/18/16 05/18/16 13:15 16:45 18:25 WBC 16.0 H Hgb 10.8 L D Hct 31.9 L Plt Count 124 L INR APTT Sodium Potassium Chloride Carbon Dioxide BUN Creatinine Glucose Calcium Magnesium Total Bilirubin AST ALT Alkaline Phosphatase Troponin I 0.08 H* 5.13 H* 05/18/16 05/18/16 18:25 21:45 WBC Hgb Hct Plt Count INR 1.4 APTT 29.0 D Sodium 134 L Potassium 4.9 H D Chloride 106 Carbon Dioxide 19 BUN 23 Creatinine 1.61 H D Glucose 417 H Calcium 6.8 L Magnesium Total Bilirubin AST ALT Alkaline Phosphatase Troponin I - Imaging / Other Tests Echo: report reviewed Consult Discharge Plan - Plan Referrals: John Peace MD [Primary Care Provider] - 05/24/16 9:45 am Salvador Bosch MD [Partnered Physician] - 06/28/16 1:00 pm
[2016-05-18 22:43] LABS: Basophils % 0.1 %; Immature Granulocytes % 1.1 % (0-4); Lymphocytes # 1.3 K/mcL (0.6-4.6); Mean Corpuscular HGB Conc 33.7 g/dL (31.6-35.5); Mean Corpuscular Hemoglobin 31.8 pg (28.0-33.3); Mean Corpuscular Volume 94.4 fL (83.0-100.0); Monocytes # 1.1 K/mcL (0.0-1.3); Monocytes % 5.9 %; Neutrophils # 15.7 K/mcL (1.6-8.9); Platelet Count 108 K/mcL (140-400); Red Blood Count 2.86 M/mcL (4.19-5.50); Red Cell Distribution Width 16.3 % (11.5-14.5); Segmented Neutrophils % 85.9 %
[2016-05-18 22:49] LABS: Hemoglobin 9.1 g/dL (12.9-16.9)
[2016-05-18] MEDS: Norepinephrine 16 MG in D5% in Water 500 ML IVC SCH (22:57)
[2016-05-18 23:20] LABS: Calcium 6.9 mg/dL (8.6-10.8); Potassium 4.3 mEq/L (3.5-4.5)
[2016-05-18] MEDS: Piperacillin/Tazobactam 3.375 GM in D5% in Water (Mini-Bag+) 100 ML IVPB SCH (23:36)
[2016-05-18 23:48] LABS: ABG Base Excess -6.1 mEq/L (-2.0 to 3.0); ABG HCO3 20.7 mEQ/L (21-27); ABG Oxygen Saturation 94 % (95-98); ABG PCO2 45 mmHg (35-45); ABG PH 7.27 pH Units (7.32-7.45); ABG PO2 83 mmHg (85-104); ABG TCO2 22.1 mEq/L (20-26)
[2016-05-18 23:49] LABS: Blood Gas FiO2 50 %; Blood Gas PEEP 5 cm H2O; Blood Gas Respiration Rate 26; Blood Gas VT 500 cc
[2016-05-19 02:13] LABS: Activated Partial Thrombo Time 110.6 Seconds (26.0-36.0)
[2016-05-19] MEDS: FentaNYL (PF) 1,000 MCG in 0.9 % Sodium Chloride 80 ML IVC SCH ×4 (02:15→21:10)
[2016-05-19 02:20] LABS: Heparin anti-factor XA UFH 0.53 IU/mL (0.30-0.70)
[2016-05-19] MEDS: Lacri-Lube 3.5 GM TUBE BOTH EYES SCH ×5 (02:54→19:57)
[2016-05-19] MEDS: EPINEPHrine 1 MG in D5% in Water 250 ML IVC SCH ×3 (02:55→16:47)
[2016-05-19 03:39] LABS: Basophils % 0.1 %; Hematocrit 26.8 % (37.5-50.1); Hemoglobin 9.1 g/dL (12.9-16.9); Immature Granulocytes % 1.3 % (0-4); Lymphocytes # 2.1 K/mcL (0.6-4.6); Lymphocytes % 11.7 %; Mean Corpuscular Hemoglobin 31.3 pg (28.0-33.3); Mean Corpuscular Volume 92.1 fL (83.0-100.0); Mean Platelet Volume 9.7 fL (9.4-12.4); Monocytes # 1.9 K/mcL (0.0-1.3); Monocytes % 10.2 %; Nucleated Red Blood Cells 0.1 /100 WBC (0); Platelet Count 110 K/mcL (140-400); Red Blood Count 2.91 M/mcL (4.19-5.50); Segmented Neutrophils % 76.7 %
[2016-05-19 03:55] LABS: Albumin 2.6 g/dL (3.5-5.0); Albumin/Globulin Ratio 1.5 (1.1-2.2); Bilirubin,Total 0.2 mg/dL (0.2-1.2); Globulin 1.7 g/dL (2.4-3.5); Magnesium 1.5 mg/dL (1.6-2.6); Phosphorous 4.2 mg/dL (2.3-4.7); Potassium 3.5 mEq/L (3.5-4.5)
[2016-05-19 04:00] LABS: Total Protein 4.3 g/dL (6.0-8.3)
[2016-05-19] MEDS: Insulin Human Regular 100 UNIT in 0.9 % Sodium Chloride 100 ML IVC SCH ×2 (04:03→17:58)
[2016-05-19 04:16] LABS: ABG Base Excess -3.2 mEq/L (-2.0 to 3.0); ABG HCO3 23.1 mEQ/L (21-27); ABG Oxygen Saturation 96 % (95-98); ABG PCO2 47 mmHg (35-45); ABG PO2 91 mmHg (85-104); ABG TCO2 24.5 mEq/L (20-26); Blood Gas FiO2 50 %; Blood Gas PEEP 5 cm H2O; Blood Gas Respiration Rate 26; Blood Gas VT 500 cc
[2016-05-19 04:52] LABS: INR 1.5; Prothrombin Time 15.9 Seconds (9.4-12.1)
[2016-05-19] MEDS: Calcium Gluconate 1,000 MG in D5% in Water 100 ML IVPB PRN ×2 (05:21→13:37)
[2016-05-19] MEDS: Magnesium Sulfate 2 GM in D5% in Water 100 ML IVPB PRN ×2 (05:22→13:49)
[2016-05-19] MEDS ORDERED: 0.9 % Sodium Chloride 500 ML IVC ONE (05:39)
[2016-05-19] MEDS ORDERED: Ringers Solution, Lactated 500 ML IVC ONE ×2 (05:44→06:51)
[2016-05-19] MEDS ORDERED: *HR* Heparin 5,000 UNIT/ML VIAL SQ SCH (06:00)
--- NOTE | 2016-05-19 07:07 | Pulmonology Progress Note ---
<Georgi Holt - Last Filed: 05/19/16 07:13> Date of Encounter: 05/19/16 Time of Encounter: 07:07 Assessment and Plan (1) Cardiac arrest Current Visit: Yes Status: Acute With spontaneous return of circulation. Patient had PEA intraoperatively and had approximately 5 minutes of ACLS, pulse was returned and the patient had monomorphic ventricular tachycardia for which he was cardioverted twice in the operating room. Upon arrival he is using patient did have one more episode of ventricular tachycardia and was cardioverted.hypothermia protocol is not warranted at this time as the patient has spontaneous movements and reflexes are present. Lactic acid was elevated upon arrival, is trending down. We will continue to trend. Patient is currently requiring epinephrine for blood pressure support, will wean as tolerated. Cardiology consulted. (2) Abdominal aortic aneurysm Current Visit: Yes Status: Chronic Status post endograft repair. Patient had cardiac arrest intraoperatively discussed above. No evidence of active bleeding at this time. Hemoglobin is decreased from preop but stable, will give 1 unit of blood. Continue to trend hemoglobin. Will hold heparin at this time. We will continue to monitor. Vascular surgery is following. Qualifiers: Presence of rupture: without rupture Qualified Code(s): I71.4 - Abdominal aortic aneurysm, without rupture (3) NIKOLE (acute kidney injury) Current Visit: Yes Status: Acute Patient's creatinine is elevated at 1.84 this morning, continues to rise with an eGFR of 36. His baseline eGFR is in the high 50s to 60s. Patient is somewhat oliguric with approximately 30 mL of urine per hour. Continue with fluid challenges. 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 (4) CAD (coronary artery disease) Current Visit: Yes Status: Acute Status post CABG patient has severe coronary artery disease. Patient likely had myocardial ischemia due to hypotension during surgery as discussed above. This could have precipitated his abnormal heart rhythm. Continue aspirin. Will hold on heparin due to drop in hemoglobin, we will continually monitor and restart heparin when able. Cardiology is following and do not recommend cardiac catheterization at this time. Qualifiers: Coronary Disease-Associated Artery/Lesion type: unspecified vessel or lesion type [place] vs. transplanted heart: [place] heart Associated angina: without angina Qualified Code(s): I25.10 - Atherosclerotic heart disease of [place] coronary artery without angina pectoris (5) HLD (hyperlipidemia) Current Visit: Yes Status: Chronic Qualifiers: Hyperlipidemia type: mixed hyperlipidemia Qualified Code(s): E78.2 - Mixed hyperlipidemia (6) HTN (hypertension) Current Visit: Yes Status: Chronic Patient hypotensive on arrival requiring pressor therapy. We will continue to monitor. Hold antihypertensive medications at this time. Qualifiers: Hypertension type: essential hypertension Qualified Code(s): I10 - Essential (primary) hypertension (7) DVT prophylaxis Current Visit: Yes Status: Acute Patient has been on heparin overnight due to concerns for bleeding. Will restart heparin when able. Patient has EPCDs on at this time. Subjective Principal diagnosis: Cardiac arrest Interval history: Patient seen and examined at bedside. Patient remains intubated and sedated at this time. He is not responding to verbal stimuli. He will spontaneously move at times, particularly when the sedation is lowered. Plan for sedation vacation today. Objective PUL Vital signs: Last Vital Signs Temp 98.4 F 05/19/16 04:00 Pulse 58 05/19/16 07:00 Resp 26 05/19/16 07:00 BP 127/55 05/19/16 07:00 Pulse Ox 100 05/19/16 07:00 General appearance: no acute distress, comatose Effort: normal Auscultation: bilateral: diminished breath sounds Cardiovascular: regular rate and rhythm Gastrointestinal: hypoactive bowel sounds, soft, non-tender, non-distended, other (No evidence of hematoma, no firmness no rigidity.) Extremities: no cyanosis, no clubbing, edema (Trace) unable to assess due to mental status Ventilator Settings Ventilator Settings: Ventilator Settings, Last 8 Hours Ventilator Mode VC+ Ventilator Mode VC+ Ventilator Mode VC+ Ventilator Mode VC+ Ventilator Mode VC+ Ventilator Mode VC+ Ventilator Mode VC+ Ventilator Mode VC+ Ventilator Mode VC+ Ventilator Mode VC+ Ventilator Mode VC+ Ventilator Mode VC+ Ventilator Mode VC+ Ventilator Tidal Volume 500 Setting Ventilator Tidal Volume 500 Setting Ventilator Tidal Volume 500 Setting Ventilator Tidal Volume 500 Setting Ventilator Tidal Volume 500 Setting Ventilator Tidal Volume 500 Setting Ventilator Tidal Volume 500 Setting Ventilator Tidal Volume 500 Setting Ventilator Tidal Volume 500 Setting Ventilator Tidal Volume 500 Setting Ventilator Tidal Volume 500 Setting Ventilator Tidal Volume 500 Setting Ventilator Tidal Volume 500 Setting Ventilator Respiratory Rate 26 Setting Ventilator Respiratory Rate 26 Setting Ventilator Respiratory Rate 26 Setting Ventilator Respiratory Rate 26 Setting Ventilator Respiratory Rate 26 Setting Ventilator Respiratory Rate 26 Setting Ventilator Respiratory Rate 26 Setting Ventilator Respiratory Rate 26 Setting Ventilator Respiratory Rate 26 Setting Ventilator Respiratory Rate 26 Setting Ventilator Respiratory Rate 26 Setting Ventilator Respiratory Rate 26 Setting Ventilator Respiratory Rate 26 Setting Actual Respiratory Rate 26 Actual Respiratory Rate 26 Actual Respiratory Rate 26 Actual Respiratory Rate 26 Actual Respiratory Rate 26 Actual Respiratory Rate 26 Actual Respiratory Rate 26 Actual Respiratory Rate 26 Actual Respiratory Rate 26 Actual Respiratory Rate 26 Actual Respiratory Rate 26 Positive End Expiratory 5 Pressure Positive End Expiratory 5 Pressure Positive End Expiratory 5 Pressure Positive End Expiratory 5 Pressure Positive End Expiratory 5 Pressure Positive End Expiratory 5 Pressure Positive End Expiratory 5 Pressure Positive End Expiratory 5 Pressure Positive End Expiratory 5 Pressure Positive End Expiratory 5 Pressure Positive End Expiratory 5 Pressure Positive End Expiratory 5 Pressure Positive End Expiratory 5 Pressure Peak Inspiratory Airway 21 Pressure Peak Inspiratory Airway 21 Pressure Peak Inspiratory Airway 21 Pressure Peak Inspiratory Airway 21 Pressure Peak Inspiratory Airway 20 Pressure Peak Inspiratory Airway 20 Pressure Peak Inspiratory Airway 22 Pressure Peak Inspiratory Airway 22 Pressure Peak Inspiratory Airway 22 Pressure Peak Inspiratory Airway 22 Pressure Peak Inspiratory Airway 21 Pressure Results - Laboratory Findings CBC and BMP: 05/19/16 03:30 05/19/16 03:30 ABG ABG pH 7.30 pH Units (7.32-7.45) L 05/19/16 04:05 ABG pCO2 47 mmHg (35-45) H 05/19/16 04:05 ABG pO2 91 mmHg (85-104) 05/19/16 04:05 ABG O2 Saturation 96 % (95-98) 05/19/16 04:05 PT/INR, D-dimer PT 15.9 Seconds (9.4-12.1) H 05/19/16 02:00 Abnormal lab findings: Abnormal lab results WBC 18.2 K/mcL (4.3-11.1) H 05/19/16 03:30 RBC 2.91 M/mcL (4.19-5.50) L 05/19/16 03:30 Hgb 9.1 g/dL (12.9-16.9) L 05/19/16 03:30 Hct 26.8 % (37.5-50.1) L 05/19/16 03:30 RDW 16.0 % (11.5-14.5) H 05/19/16 03:30 Plt Count 110 K/mcL (140-400) L 05/19/16 03:30 Neutrophils # 14.0 K/mcL (1.6-8.9) H 05/19/16 03:30 Monocytes # 1.9 K/mcL (0.0-1.3) H 05/19/16 03:30 Nucleated RBCs/100 WBC 0.1 /100 WBC (0) H 05/19/16 03:30 PT 15.9 Seconds (9.4-12.1) H 05/19/16 02:00 APTT 110.6 Seconds (26.0-36.0) H* D 05/19/16 02:00 ABG pH 7.30 pH Units (7.32-7.45) L 05/19/16 04:05 ABG pCO2 47 mmHg (35-45) H 05/19/16 04:05 ABG Base Excess -3.2 mEq/L (-2.0 to 3.0) L 05/19/16 04:05 ABG Hematocrit 23 % (35-51) L 05/18/16 12:03 Glucose 201 mg/dL (60-95) H 05/18/16 12:03 Lactate 7.6 mmol/L (0.7-2.1) H* 05/18/16 12:03 Sodium 135 mEq/L (136-145) L 05/19/16 03:30 Creatinine 1.84 mg/dL (0.72-1.25) H 05/19/16 03:30 Est GFR ( Amer) 44 (> 60) L 05/19/16 03:30 Est GFR (Non-Af Amer) 36 (> 60) L 05/19/16 03:30 Glucose 219 mg/dL (70-99) H 05/19/16 03:30 POC Glucose 191 (58-89) H 05/19/16 05:54 Lactic Acid 4.4 mmol/L (0.5-2.2) H* 05/19/16 03:30 Calcium 7.0 mg/dL (8.6-10.8) L 05/19/16 03:30 Ionized Calcium 1.00 mmol/L (1.15-1.35) L 05/19/16 03:30 Magnesium 1.5 mg/dL (1.6-2.6) L 05/19/16 03:30 AST 50 Units/L (5-34) H 05/19/16 03:30 Troponin I 18.14 ng/mL (0-0.03) H* 05/18/16 22:56 Serum Total Protein 4.3 g/dL (6.0-8.3) L D 05/19/16 03:30 Albumin 2.6 g/dL (3.5-5.0) L 05/19/16 03:30 Globulin 1.7 g/dL (2.4-3.5) L 05/19/16 03:30 - Clinical Findings Intake & Output: Intake & Output 05/18/16 05/18/16 05/19/16 15:59 23:59 07:59 Intake Total 100 / 100 1683.9 / 1683.9 1141.1 / 1141.1 Output Total 550 / 550 150 / 150 Balance 100 / 100 1133.9 / 1133.9 991.1 / 991.1 Weight 80.2 kg - VTE Documentation of Mechanical Device: Intermittent pneumatic compression device Consult Discharge Plan - Plan Referrals: John Peace MD [Primary Care Provider] - 05/24/16 9:45 am Salvador Bosch MD [Partnered Physician] - 06/28/16 1:00 pm <Rebel Walsh W - Last Filed: 05/19/16 10:17> Objective PUL Vital signs: Last Vital Signs Temp 98.1 F 05/19/16 08:49 Pulse 73 05/19/16 09:00 Resp 26 05/19/16 09:00 BP 124/46 05/19/16 09:00 Pulse Ox 100 05/19/16 09:00 Ventilator Settings Ventilator Settings: Ventilator Settings, Last 8 Hours Ventilator Mode VC+ Ventilator Mode VC+ Ventilator Mode VC+ Ventilator Mode VC+ Ventilator Mode VC+ Ventilator Mode VC+ Ventilator Mode VC+ Ventilator Mode VC+ Ventilator Mode VC+ Ventilator Mode VC+ Ventilator Mode VC+ Ventilator Mode VC+ Ventilator Tidal Volume 500 Setting Ventilator Tidal Volume 500 Setting Ventilator Tidal Volume 500 Setting Ventilator Tidal Volume 500 Setting Ventilator Tidal Volume 500 Setting Ventilator Tidal Volume 500 Setting Ventilator Tidal Volume 500 Setting Ventilator Tidal Volume 500 Setting Ventilator Tidal Volume 500 Setting Ventilator Tidal Volume 500 Setting Ventilator Tidal Volume 500 Setting Ventilator Tidal Volume 500 Setting Ventilator Respiratory Rate 26 Setting Ventilator Respiratory Rate 26 Setting Ventilator Respiratory Rate 26 Setting Ventilator Respiratory Rate 26 Setting Ventilator Respiratory Rate 26 Setting Ventilator Respiratory Rate 26 Setting Ventilator Respiratory Rate 26 Setting Ventilator Respiratory Rate 26 Setting Ventilator Respiratory Rate 26 Setting Ventilator Respiratory Rate 26 Setting Ventilator Respiratory Rate 26 Setting Ventilator Respiratory Rate 26 Setting Actual Respiratory Rate 26 Actual Respiratory Rate 26 Actual Respiratory Rate 26 Actual Respiratory Rate 26 Actual Respiratory Rate 26 Actual Respiratory Rate 26 Actual Respiratory Rate 26 Actual Respiratory Rate 26 Actual Respiratory Rate 26 Actual Respiratory Rate 26 Actual Respiratory Rate 26 Positive End Expiratory 5 Pressure Positive End Expiratory 5 Pressure Positive End Expiratory 5 Pressure Positive End Expiratory 5 Pressure Positive End Expiratory 5 Pressure Positive End Expiratory 5 Pressure Positive End Expiratory 5 Pressure Positive End Expiratory 5 Pressure Positive End Expiratory 5 Pressure Positive End Expiratory 5 Pressure Positive End Expiratory 5 Pressure Positive End Expiratory 5 Pressure Peak Inspiratory Airway 21 Pressure Peak Inspiratory Airway 21 Pressure Peak Inspiratory Airway 21 Pressure Peak Inspiratory Airway 21 Pressure Peak Inspiratory Airway 21 Pressure Peak Inspiratory Airway 21 Pressure Peak Inspiratory Airway 21 Pressure Peak Inspiratory Airway 20 Pressure Peak Inspiratory Airway 20 Pressure Peak Inspiratory Airway 22 Pressure Peak Inspiratory Airway 22 Pressure Results - Laboratory Findings CBC and BMP: 05/19/16 08:35 05/19/16 03:30 ABG ABG pH 7.30 pH Units (7.32-7.45) L 05/19/16 04:05 ABG pCO2 47 mmHg (35-45) H 05/19/16 04:05 ABG pO2 91 mmHg (85-104) 05/19/16 04:05 ABG O2 Saturation 96 % (95-98) 05/19/16 04:05 PT/INR, D-dimer PT 15.9 Seconds (9.4-12.1) H 05/19/16 02:00 Abnormal lab findings: Abnormal lab results WBC 16.2 K/mcL (4.3-11.1) H 05/19/16 08:35 RBC 2.59 M/mcL (4.19-5.50) L 05/19/16 08:35 Hgb 8.3 g/dL (12.9-16.9) L 05/19/16 08:35 Hct 23.8 % (37.5-50.1) L 05/19/16 08:35 RDW 15.8 % (11.5-14.5) H 05/19/16 08:35 Plt Count 98 K/mcL (140-400) L 05/19/16 08:35 Neutrophils # 11.4 K/mcL (1.6-8.9) H 05/19/16 08:35 Monocytes # 2.3 K/mcL (0.0-1.3) H 05/19/16 08:35 Nucleated RBCs/100 WBC 0.1 /100 WBC (0) H 05/19/16 08:35 PT 15.9 Seconds (9.4-12.1) H 05/19/16 02:00 APTT 110.6 Seconds (26.0-36.0) H* D 05/19/16 02:00 ABG pH 7.30 pH Units (7.32-7.45) L 05/19/16 04:05 ABG pCO2 47 mmHg (35-45) H 05/19/16 04:05 ABG Base Excess -3.2 mEq/L (-2.0 to 3.0) L 05/19/16 04:05 ABG Hematocrit 23 % (35-51) L 05/18/16 12:03 Glucose 201 mg/dL (60-95) H 05/18/16 12:03 Lactate 7.6 mmol/L (0.7-2.1) H* 05/18/16 12:03 Sodium 135 mEq/L (136-145) L 05/19/16 03:30 Creatinine 1.84 mg/dL (0.72-1.25) H 05/19/16 03:30 Est GFR ( Amer) 44 (> 60) L 05/19/16 03:30 Est GFR (Non-Af Amer) 36 (> 60) L 05/19/16 03:30 Glucose 219 mg/dL (70-99) H 05/19/16 03:30 Calcium 7.0 mg/dL (8.6-10.8) L 05/19/16 03:30 Ionized Calcium 1.00 mmol/L (1.15-1.35) L 05/19/16 03:30 Magnesium 1.5 mg/dL (1.6-2.6) L 05/19/16 03:30 AST 50 Units/L (5-34) H 05/19/16 03:30 Troponin I 18.14 ng/mL (0-0.03) H* 05/18/16 22:56 Serum Total Protein 4.3 g/dL (6.0-8.3) L D 05/19/16 03:30 Albumin 2.6 g/dL (3.5-5.0) L 05/19/16 03:30 Globulin 1.7 g/dL (2.4-3.5) L 05/19/16 03:30 - Clinical Findings Intake & Output: Intake & Output 05/18/16 05/19/16 05/19/16 23:59 07:59 15:59 Intake Total 1683.9 / 1683.9 1855.1 / 1855.1 1195 / 1195 Output Total 550 / 550 450 / 450 Balance 1133.9 / 1133.9 1405.1 / 1405.1 1195 / 1195 Weight 80.2 kg 82.9 kg - Attending Attestation I examined this patient and my medical decision-making was reviewed with the IMMIGRATION GUARD/PA/Advanced Practice Nurse/Resident Physician. I agree with the documented findings, disposition and treatment plan as described except to the extent set forth below. I spent 35min of Critical Care time with this patient. It involved decision making of high complexity to assess, manipulate, and support vital organ system failure and/or to prevent further life threatening deterioration of the patient' s condition. The time involved in the performance of separately reportable procedures was not counted toward critical care time. Patient seen and examined at bedside Labs, radiology, chart personally reviewed. All lines examined without evidence of infection. Neuro: S/p Cardiac Arrest noted to have movement of all extremities. Sedation/ Analgesia for intubation Goal RASS (-2). Pulm: intubated with acceptable oxygenation/ventilation (goal sat around 92%); ETT high but repositioned; (suspect tracheal deviation ?s/t aorta aneurysm ABG reassuring. Cards/Vasc: POD#1 s/p Endograft repair of abdominal aortic aneurysm in setting of vasculopathy and severe underlying CAD with cardiomyopathy s/p ACLS x 3 complicated by likely cardiogenic shock now off vasopressor. Even likely mediated by cardiac ischemia severe CAD with known history of RCA obstruction Cardiology recs for heparin but drop in H/H so stopped. Mild bradycardia but no further. Cards consulted Amio started for Vtach Monitor BP likely will need vasodilator later in day if MAP continues to be high. MAP 65 lactate trending down. FEN-GI: PPi for GI prophy. Renal: NIKOLE s/t to hypotension now with improving UOP Nephro consulted no MATHEMATICS EDUCATION PROFESSOR. oley placed for strict I/Os replace Lytes per protocol ID: sterile field broken during ACLS so empiric abx started with ongoing shock ( Vanc/Zosyn) cultures obtained deeescalate based upon micro s/s/ Heme/Onc: Thrombcytopenia s/t to critical illness. stable at approx 100. 1 UPRBC today for drop in H/H goal ugb >9 ?drop w/o clear evidence of active bleeding Endo: glucose monitored was on insuling gtt overnight but glucose has improved. Integ: skin care per ICU protocol to prevent ulcers CODE: Full and family updated at bedside.
[2016-05-19] MEDS: Aspirin 81 MG TAB.CHEW PO SCH (07:17)
[2016-05-19] MEDS: Chlorhexidine Rinse 15 ML MOUTHWASH MM SCH ×2 (07:17→19:57)
[2016-05-19] MEDS: Pantoprazole 40 MG VIAL IVPB SCH (07:17)
[2016-05-19] MEDS ORDERED: 0.9 % Sodium Chloride 250 ML ONE ×2 (08:15→15:46)
[2016-05-19] MEDS: Piperacillin/Tazobactam 3.375 GM in D5% in Water (Mini-Bag+) 100 ML IVPB SCH ×2 (08:20→14:59)
--- NOTE | 2016-05-19 08:51 | Cardiology Progress Note ---
Addendum entered and electronically signed by Alexis Ochoa DO 05/19 11:09: In the setting of anemia it is recommended to keep the Hgb >8.0 with a goal of 10.0. Continue PRBC replacement at this time. Original Note: Date of Encounter: 05/19/16 Time of Encounter: 08:50 Assessment and Plan (1) Cardiac arrest Current Visit: Yes Status: Acute 05/19/2016: Patient has been seen and evaluated this am. He continues to remain intubated and sedated in the ICU. He has been weaned off vasopressor support and his metabolic acidosis is improving. He continues to improve since his cardiac arrest. Troponin levels are elevated secondary to supply demand mismatch. Rhythm stable on Amiodarone. 05/18/2016: Mr. Rosado had cardiac arrest during his abdominal aortic aneurysm endograft surgery performed 05/18/2016. After regaining a pulse he required synchronized cardioversion 2 in the OR for sustained ventricular tachycardia thereafter he was transferred to the ICU requiring synchronized cardioversion 1 for sustained ventricular tachycardia. Patient is currently intubated and requiring vasopressor support in the ICU. Mr. Rosado has a significant cardiovascular history is likely contributing to his current state. Patient follows up with Cardiology in [place], documentation to be requested. EKG demonstrates RBBB Cardiac history: Patient left heart catheterization at [facility] January 2011 that demonstrated mild mitral regurgitation and inferior hypokinesis. EF 50%. Left main normal. LAD proximal stent patent, midportion occluded. HILL to distal LAD patent. Terminal LAD occluded. Left collaterals noted. Circumflex mid 50 % stenosis. OM1 ostial 90% stenosis. RCA occluded. SVG to RCA occluded. Left to right collaterals noted. Carotid angiogram January 2011 at [facility] demonstrated right ICA patent status post CEA. A left ICA occluded. Adequate therapy was recommended at that time. Abdominal arteriogram on January 2011 at [facility] demonstrated left renal artery stent patent. Right renal artery 80-90% proximal stenosis. Large infrarenal aneurysm. Aorta to right from oral and aorta to left iliac bypass widely patent. Pharmacologic nuclear stress test performed at [facility] December 2012 demonstrates large partially reversible apical to basal inferior and inferior lateral defect with associated severe hypokinesis. Findings were consistent with ischemia in addition to prior MD. Echocardiogram December 2012 at [facility] demonstrated EF of 55%. Mild concentric left ventricular hypertrophy. Pseudo-normal mitral inflow pattern. Mitral pulmonary hypertension. No significant valvular dysfunction noted. Neck CT angiogram August 2009 at [facility] demonstrate left main distal nonobstructing plaque. LAD proximal headache calcification precluding assessment. Occluded mid LAD. Diagonal branches not well assessed. Circumflex nonobstructing proximal calcification. OM1 small. ON to heavily calcified precluding analysis. RCA occluded at the ostium. Distal RCA fill via collaterals. HILL to LAD patent. Carotid duplex scan December 2012 at [facility] demonstrate right common carotid right internal carotid mild stenosis. No stenosis of left common carotid. Severe stenosis at the bifurcation. Severe stenosis of the internal carotid artery. Carotid duplex scan August 2015 demonstrates right ICA has severe 60-79% stenosis. Left ICA has non-stenotic plaque. CT of the abdomen and pelvis with contrast on August 2015 demonstrates abdominal aortic aneurysm increased in size measures 6.5 cm in transverse dimension, increased compared to 5.8 cm on a previous study. Complex left renal mass which is stable in size and appearance. New small complex mass of the left lower kidney concerning for a second neoplasm. 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 Plan: - Continue stabilize patient status post cardiac arrest per pulmonary ICU team. - Patient is hypotensive continue to hold antihypertensive medications including his beta lake. - Plan to restart atorvastatin when patient is extubated and passed a swallow test. - Patient status post AAA endograft performed 05/18/2016, continue to hold Plavix. - Hold Ranexa. - Continue Amiodarone drip for rhythm stabilization. (2) CAD (coronary artery disease) Current Visit: Yes Status: Acute Patient's significant coronary artery disease as listed above. Qualifiers: Coronary Disease-Associated Artery/Lesion type: unspecified vessel or lesion type [place] vs. transplanted heart: [place] heart Associated angina: without angina Qualified Code(s): I25.10 - Atherosclerotic heart disease of [place] coronary artery without angina pectoris (3) Elevated troponin I level Current Visit: Yes Status: Acute Elevated troponin with high of 18.14, likely secondary to hypo-perfusion with known coronary stenosis. EKG demonstrated RBBB with ischemic changes in the inferior leads with known blockages. Patient was started on Heparin last evening but was discontinued as the patients Hgb decreased. Patient is currently receiving blood. Echocardiogram 05/18/2016: Technically sub-optimal due to poor echocardiographic window and clinical status. Mild left ventricular systolic dysfunction, LVEF 45-50% There is severe hypokinesis of the basal-mid inferior wall and basal-mid inferiorlateral wall. Moderate concetric left ventricular hypertrophy. Right ventricle was poorly visualized on this study. No significant valvular dysfunction. Plan: - Continue Cardiac Monitoring - Continue to hold heparin in setting of recent arterial surgery and blood loss anemia. - Recheck Troponin with am labs. (4) PAD (peripheral artery disease) Current Visit: Yes Status: Chronic Patient has known history of peripheral artery disease with claudication. Patient follows up with Dr. Bosch. Continue to monitor peripheral vascular flow during inpatient stay. (5) Abdominal aortic aneurysm Current Visit: Yes Status: Chronic Status post endograft repair. Patient had cardiac arrest intraoperatively discussed above. No evidence of active bleeding at this time. The size of the aneurysm is 4.8 x 6.54cm. we will defer management and care status post procedure vascular team. Qualifiers: Presence of rupture: without rupture Qualified Code(s): I71.4 - Abdominal aortic aneurysm, without rupture (6) HTN (hypertension) Current Visit: Yes Status: Chronic Patient has known history of hypertension for which he was taking Cozaar and atenolol. Patient was hypotensive status post cardiac arrest requiring vasopressor support. He has since been weaned off vasopressor support and blood pressures are maintaining at this time. Plan to continue holding antihypertensives at this time. Qualifiers: Hypertension type: essential hypertension Qualified Code(s): I10 - Essential (primary) hypertension (7) HLD (hyperlipidemia) Current Visit: Yes Status: Chronic Patient's known history of hyperlipidemia. Plan to continue management as patient stabilizes. Qualifiers: Hyperlipidemia type: mixed hyperlipidemia Qualified Code(s): E78.2 - Mixed hyperlipidemia (8) Carotid artery disease Current Visit: Yes Status: Chronic Patient has known history of carotid artery stenosis as discussed above. Qualifiers: Laterality: bilateral Qualified Code(s): I77.9 - Disorder of arteries and arterioles, unspecified (9) Tobacco abuse Current Visit: Yes Status: Chronic Patient is a current every day smoker likely contributing to his diffuse vascular disease. (10) Metabolic acidosis Current Visit: Yes Status: Acute 05/18/2016: Patient is status post cardiac arrest currently intubated in the ICU requiring vasopressor support. Lactic acid is 7.6, pH is 7.07, PCO2 58, PO2 346, bicarbonate 16.8, CO2 18.6, O2 saturation 100%. Anion gap: 12. Metabolic acidosis secondary to cardiac arrest. 05/19/2016: ABG: pH 7.30, pCO2: 47, pO2 91, HCO3: 23.1, Total CO2: 24.5, Improved compared to yesterday. Plan: Treatment per ICU team. Discussion w patient/family: The assessment and plan as outlined above was discussed with the patient and/or family members who expressed understanding and agreement. All questions were answered. Thank you for involving us in the care of your patient. Please call with any questions. Subjective Principal diagnosis: Cardiac arrest Interval history: Patient has been seen and evaluated at bedside this am. He continues to be sedated and intubated s/p cardiac arrest. He has had not acute events overnight and was slowly weaned off epinephrine this am after his heart rate was in the 40 's and 50's last evening. Patient opens eyes to verbal commands and demonstrates motor response to touching of the extremities. Objective Vital Signs, Last 4 Hours Temp Pulse Resp BP Pulse Ox 05/19/16 08:34 98.1 F 74 26 124/48 99 05/19/16 08:00 73 26 129/51 100 05/19/16 07:30 62 05/19/16 07:00 58 26 127/55 100 05/19/16 06:02 26 123/57 100 05/19/16 05:58 67 26 120/59 100 05/19/16 05:00 74 26 133/64 99 Other: Gen: 75-year-old male intubated and sedated in the ICU. HEENT: Normocephalic, atraumatic, pupils symmetric, mucous membranes are moist and pale, endotracheal tube is in oral cavity, neck is supple trachea midline. Chest: Symmetric bilateral correlating with mechanical ventilator support. Cardiac: Tachycardic, no murmurs were appreciated upon auscultation Respiratory: Lung sounds were diminished in all lung constantino, no crackles or wheezing were appreciated upon auscultation. Midsternal scar from previous CABG was visualized. Abdomen: Soft, bilateral inferior abdominal incision sites were clear of drainage and covered with dressing. Abdominal aortic pulses palpable. Extremities: All 4 extremities were symmetric bilateral, pulses were diminished and radial dorsal pedal posterior tibial comparable and bilateral extremities. Skin was warm and pale. Results 05/19/16 08:35 05/19/16 03:30 Lab Results 05/18/16 05/18/16 05/18/16 13:15 13:15 13:15 WBC 13.6 H D Hgb 8.9 L D Hct 27.0 L Plt Count 103 L INR 1.4 APTT > 360.0 H* D Sodium 141 Potassium 3.6 D Chloride 111 H Carbon Dioxide 21 BUN 18 Creatinine 0.95 Glucose 282 H Calcium 6.6 L D Magnesium 2.3 Total Bilirubin 0.4 AST 11 ALT 9 Alkaline Phosphatase 38 Troponin I 05/18/16 05/18/16 05/18/16 13:15 16:45 18:25 WBC 16.0 H Hgb 10.8 L D Hct 31.9 L Plt Count 124 L INR APTT Sodium Potassium Chloride Carbon Dioxide BUN Creatinine Glucose Calcium Magnesium Total Bilirubin AST ALT Alkaline Phosphatase Troponin I 0.08 H* 5.13 H* 05/18/16 05/18/16 05/18/16 18:25 21:45 22:35 WBC 18.3 H Hgb 9.1 L D Hct 27.0 L Plt Count 108 L INR 1.4 APTT 29.0 D Sodium 134 L Potassium 4.9 H D Chloride 106 Carbon Dioxide 19 BUN 23 Creatinine 1.61 H D Glucose 417 H Calcium 6.8 L Magnesium Total Bilirubin AST ALT Alkaline Phosphatase Troponin I 05/18/16 05/18/16 05/19/16 22:56 22:56 02:00 WBC Hgb Hct Plt Count INR 1.5 APTT Sodium 137 Potassium 4.3 Chloride 106 Carbon Dioxide 18 L BUN 23 Creatinine 1.68 H Glucose 356 H Calcium 6.9 L Magnesium Total Bilirubin AST ALT Alkaline Phosphatase Troponin I 18.14 H* 05/19/16 05/19/16 05/19/16 02:00 03:30 03:30 WBC 18.2 H Hgb 9.1 L Hct 26.8 L Plt Count 110 L INR APTT 110.6 H* D Sodium 135 L Potassium 3.5 Chloride 106 Carbon Dioxide 19 BUN 26 Creatinine 1.84 H Glucose 219 H Calcium 7.0 L Magnesium 1.5 L Total Bilirubin 0.2 AST 50 H ALT 13 Alkaline Phosphatase 48 Troponin I - VTE Documentation of Mechanical Device: Intermittent pneumatic compression device Consult Discharge Plan - Plan Referrals: John Peace MD [Primary Care Provider] - 05/24/16 9:45 am Salvador Bosch MD [Partnered Physician] - 06/28/16 1:00 pm
[2016-05-19 09:07] LABS: Basophils % 0.1 %; Hematocrit 23.8 % (37.5-50.1); Hemoglobin 8.3 g/dL (12.9-16.9); Immature Platelets 4.7 % (1.1-6.1); Lymphocytes # 2.4 K/mcL (0.6-4.6); Lymphocytes % 14.5 %; Mean Corpuscular HGB Conc 34.9 g/dL (31.6-35.5); Mean Corpuscular Volume 91.9 fL (83.0-100.0); Mean Platelet Volume 9.8 fL (9.4-12.4); Monocytes # 2.3 K/mcL (0.0-1.3); Monocytes % 14.1 %; Neutrophils # 11.4 K/mcL (1.6-8.9); Nucleated Red Blood Cells 0.1 /100 WBC (0); Red Blood Count 2.59 M/mcL (4.19-5.50); Red Cell Distribution Width 15.8 % (11.5-14.5); Segmented Neutrophils % 70.3 %
[2016-05-19] MEDS: Amiodarone Premix 360 MG/200 ML BAG IVC SCH ×3 (09:07→21:10)
[2016-05-19 09:08] LABS: Platelet Count 98 K/mcL (140-400)
--- NOTE | 2016-05-19 09:23 | Vascular/[facility] Progress Note ---
Date of Encounter: 05/19/16 Time of Encounter: 07:40 - Assessment and plan (1) Abdominal aortic aneurysm Current Visit: Yes Status: Chronic Patient underwent endograft repair of his aortic aneurysm today. The patient developed profound hypotension and arrhytmia during the procedure. He required resuscitation and is now intubated in the ICU requiring pressors. His echo was reviewed and he was discussed with the ICU team. Will continue with supportive care and wean the vent and pressors as tolerated. The family was updated regarding his condition. Qualifiers: Presence of rupture: without rupture Qualified Code(s): I71.4 - Abdominal aortic aneurysm, without rupture (2) CAD (coronary artery disease) Current Visit: Yes Status: Acute Qualifiers: Coronary Disease-Associated Artery/Lesion type: unspecified vessel or lesion type [place] vs. transplanted heart: [place] heart Associated angina: without angina Qualified Code(s): I25.10 - Atherosclerotic heart disease of [place] coronary artery without angina pectoris (3) Carotid artery disease Current Visit: Yes Status: Chronic Qualifiers: Laterality: bilateral Qualified Code(s): I77.9 - Disorder of arteries and arterioles, unspecified (4) HLD (hyperlipidemia) Current Visit: Yes Status: Chronic Qualifiers: Hyperlipidemia type: mixed hyperlipidemia Qualified Code(s): E78.2 - Mixed hyperlipidemia (5) HTN (hypertension) Current Visit: Yes Status: Chronic Qualifiers: Hypertension type: essential hypertension Qualified Code(s): I10 - Essential (primary) hypertension (6) PAD (peripheral artery disease) Current Visit: Yes Status: Chronic (7) Tobacco abuse Current Visit: Yes Status: Chronic - Subjective Interval history: Patient is sedated and intubated, appears stable. Vital Signs, Last 4 Hours Temp Pulse Resp BP Pulse Ox 05/19/16 09:00 73 26 124/46 100 05/19/16 08:49 98.1 F 74 26 124/48 100 05/19/16 08:34 98.1 F 74 26 124/48 99 05/19/16 08:00 73 26 129/51 100 05/19/16 07:40 26 124/48 100 05/19/16 07:30 62 05/19/16 07:00 58 26 127/55 100 05/19/16 06:02 26 123/57 100 05/19/16 05:58 67 26 120/59 100 - Physical Examination General: Present: Other (Remains sedated and intubated, sedation holiday revealed normal neuorlogic exam.) HEENT: Present: Pupils equal Cardiac: Present: Reg Rate and Rhythm Lungs: Present: Normal Breath Sounds Vascular: Present: Normal capillary refill, Pulse, normal, Surgical incisions ( no erthema, no drainage, no hematoma). Absent: Cyanosis Abdomen: Present: Soft Skin: Present: No rashes noted on visualized skin - VTE Documentation of Mechanical Device: Intermittent pneumatic compression device Results 05/19/16 08:35 05/19/16 03:30 Lab Results, Last 24 hours 05/18/16 05/18/16 05/18/16 13:15 13:15 13:15 WBC 13.6 H D Hgb 8.9 L D Hct 27.0 L Plt Count 103 L INR 1.4 APTT > 360.0 H* D Sodium 141 Potassium 3.6 D Chloride 111 H Carbon Dioxide 21 BUN 18 Creatinine 0.95 Glucose 282 H Calcium 6.6 L D Magnesium 2.3 Total Bilirubin 0.4 AST 11 ALT 9 Alkaline Phosphatase 38 Troponin I 05/18/16 05/18/16 05/18/16 13:15 16:45 18:25 WBC 16.0 H Hgb 10.8 L D Hct 31.9 L Plt Count 124 L INR APTT Sodium Potassium Chloride Carbon Dioxide BUN Creatinine Glucose Calcium Magnesium Total Bilirubin AST ALT Alkaline Phosphatase Troponin I 0.08 H* 5.13 H* 05/18/16 05/18/16 05/18/16 18:25 21:45 22:35 WBC 18.3 H Hgb 9.1 L D Hct 27.0 L Plt Count 108 L INR 1.4 APTT 29.0 D Sodium 134 L Potassium 4.9 H D Chloride 106 Carbon Dioxide 19 BUN 23 Creatinine 1.61 H D Glucose 417 H Calcium 6.8 L Magnesium Total Bilirubin AST ALT Alkaline Phosphatase Troponin I 05/18/16 05/18/16 05/19/16 22:56 22:56 02:00 WBC Hgb Hct Plt Count INR 1.5 APTT Sodium 137 Potassium 4.3 Chloride 106 Carbon Dioxide 18 L BUN 23 Creatinine 1.68 H Glucose 356 H Calcium 6.9 L Magnesium Total Bilirubin AST ALT Alkaline Phosphatase Troponin I 18.14 H* 05/19/16 05/19/16 05/19/16 02:00 03:30 03:30 WBC 18.2 H Hgb 9.1 L Hct 26.8 L Plt Count 110 L INR APTT 110.6 H* D Sodium 135 L Potassium 3.5 Chloride 106 Carbon Dioxide 19 BUN 26 Creatinine 1.84 H Glucose 219 H Calcium 7.0 L Magnesium 1.5 L Total Bilirubin 0.2 AST 50 H ALT 13 Alkaline Phosphatase 48 Troponin I 05/19/16 08:35 WBC 16.2 H Hgb 8.3 L Hct 23.8 L Plt Count 98 L INR APTT Sodium Potassium Chloride Carbon Dioxide BUN Creatinine Glucose Calcium Magnesium Total Bilirubin AST ALT Alkaline Phosphatase Troponin I Consult Discharge Plan - Plan Referrals: John Peace MD [Primary Care Provider] - 05/24/16 9:45 am Salvador Bosch MD [Partnered Physician] - 06/28/16 1:00 pm
--- NOTE | 2016-05-19 11:14 | Operative Note ---
Date of procedure: 05/18/16 Pre-op diagnosis: AAA Post-op diagnosis: same (plus intra operative cardiac arrest) Procedure: Endovascular abdominal aortic aneurysm repair with [employer] Zenith stent graft system and one docking limb extension. Bilateral non selective aortic catherterization with aortogram via left femoral access. bilateral open femoral exposure Complications: intra operative cardiac arrest Anesthesia: GETA Surgeon: Salvador Bosch Co-Surgeon: Shoaib Ruiz Condition: critical Disposition: ICU Procedure in Detail: History Khang Rosado is a 75-year-old white male with a complicated past vascular history. He did undergone a previous aortic bypass graft for peripheral vascular disease at an outside hospital. The proximal (aortic) anastomosis was fashioned in an end to side configuration. The right limb of the graft extended to the common femoral artery and on the left side it extended to the external iliac artery. The patient has gone on to develop aneurysmal change of the aorta and in the area of the aortic anastomosis. In addition he has a history of coronary artery disease and hypertension and elevated lipids. He now comes to surgery for an endovascular repair. Procedure After informed consent was obtained the patient was taken to the operating room. General endotracheal anesthesia was established under arterial line pressure monitoring. His abdomen groin and upper thighs were sterilely prepped and draped. A timeout protocol was observed. A 2 team surgical approach was utilized for this operation due to the patient's comorbid conditions. In addition the patient has very complex anatomy and the 2 team approach which necessary for complex intraoperative decision-making and in an attempt to try to reduce anesthesia time. The femoral arteries were dissected and exposed bilaterally through oblique incisions. On the left side there were no previous surgical interventions but on the right side this had been an area of a previous distal anastomosis. After control was obtained of these vessels and 18-gauge needle was used to puncture the vessels in a retrograde fashion. On the right side graft was punctured and the wire was advanced via the right limb of the graft. This was followed by a 8 [place] sheath and dilator. The dilator was removed and sheath was aspirated and flushed. On the left side very diseased and calcific vessel was identified. A small area of soft consistency was identified in this area was punctured. A wire was then advanced and this was followed by the 8 [place] sheath which was aspirated and flushed and dilator was removed. With this done a second wire was then placed via the left groin. This was placed so that the wire would travel into the [place] artery. The sheath used here was a 6 [place] sheath because of the diseased artery the smaller diameter sheath was selected. Then under fluoroscopic control the wire was manipulated into the [place] vessel and secured. A pigtail catheter was advanced up on the right side. This was exchanged for a Lunderquist wire. It should be noted that aortogram were performed during this procedure via both the left and right side and through the sheaths with retrograde injections for evaluating the graft and the old aortobifemoral bypass graft. The main body was placed via the right side. A 30 x 82 mm [employer] ZenGratafy device was selected. This was deployed in the immediate infrarenal location with suprarenal fixation. The main body was extended so as to allow the contralateral limb orifice to open. Multiple attempts at trying to cannulate the left limb were unsuccessful via the left groin approach. After multiple manipulations and angiographic evaluations it was found that the left limb was being constrained and angulated by the previous bypass graft. Therefore this attempt was modified by allowing the right side main body employment to be fully deployed. Then using a retrograde angiogram an extension component was placed on the right side using a 13 x 56 mm Spiral Z limb. This was then deployed. Attention was then redirected back to the left side. Using oblique views and angiography the wires and catheters were manipulated and the wire was advanced through the [place] artery into the main body component and this was confirmed by wire manipulation to demonstrate its appropriate position. However shortly after this wire manipulation was accomplished the patient had an abrupt episode of hypotension. The patient then went on to develop cardiac arrest and suspected PEA. CPR was immediately initiated as was an ACLS protocol. The patient received intravenous bicarbonate and epinephrine. The rhythm was carefully monitored and he did undergo to DC countershocks when appropriate. A spontaneous rhythm and blood pressure were restored with the assistance of these interventions and an epinephrine drip. Because of this hemodynamic crisis the endovascular repair was aborted. The wires and catheters from both groins were then removed. It should be noted that the wires had remained in appropriate position and had not entered into the arch of the aorta or the heart. In addition the abdomen and flanks remained soft and nondistended. The intraoperative angiograms did not demonstrated at any time extravasation of contrast outside of the vessel lumen. 6-0 Prolene suture was used to repair the femoral vessel puncture sites bilaterally. After appropriate backbleeding and flushing the limbs were opened, first on the right side, then on the left. The wounds were irrigated and hemostasis achieved. The wounds were closed in layers using absorbable suturen The patient was then transported from the operating room to the intensive care unit in critical condition. The patient was intubated and on an IV epinephrine drip. The left limb of the endovascular repair is incomplete at this time and will need to be addressed at a later date once the patient's hemodynamics are improved and he has recovered from this cardiovascular event.
--- NOTE | 2016-05-19 11:16 | Nephrology Consult Note ---
Date of Encounter: 05/19/16 Time of Encounter: 09:10 Assessment and Plan (1) NIKOLE (acute kidney injury) Current Visit: Yes Status: Acute Oliguric NIKOLE last night; but during the midmorning, his UOP appears to be improving. Though there is no urgent dialytic needs, I will continue to follow with you to assess daily for LEATHERSMITH. Continue to follow a renal protective strategy: dose rx by GFR, avoid nephrotoxins such as Bactrim, NSAIDs and contrast Met acidosis, from the lactic acidosis. Continue IVF Will follow with you. Thank you for consulting the [facility]. (2) Cardiac arrest Current Visit: Yes Status: Acute As per primary (3) Metabolic acidosis Current Visit: Yes Status: Acute Likely secondary to the lactic acid. Continue volume repletion and supportive measures. (4) HTN (hypertension) Current Visit: Yes Status: Chronic Currently hypotensive on pressors Qualifiers: Hypertension type: essential hypertension Qualified Code(s): I10 - Essential (primary) hypertension History of Present Illness - Reason for Consult Consult date: 05/19/16 Acute Kidney Injury, Chronic Kidney Disease Requesting physician: Rebel Walsh - Chief Complaint NIKOLE on CKD - History of Present Illness Khang Rosado is a very pleasant gentleman with a pmh of CAD, CKD stage II- IIIa, renal mass and AAA who presented for AAA report. He developed PEA arrest with VT but was resuscitated. Nephrology was consulted for rising SCr oligouria overnight. He was intubated and sedated during my exam. 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 I also later updated the pt's PCP in the [facility]. I reviewed his labs, meds, vitals and imaging. Further imaging is limited as he remains intubated. Past Med Surg Social Fam HX - Past Medical History Medical history: aortic aneurysm, GERD Psychiatric history: no psych history - Past Surgical History Surgical History: carotid endarterectomy - Social History Smoking Status: Current every day smoker Packs per day: 1 Smokeless Tobacco Status: No Alcohol use: none Drug use: none Medications and Allergies Aspirin 81 mg PO DAILY 05/18/16 [History] Atenolol [Tenormin] 50 mg PO DAILY 05/18/16 [History] Atorvastatin [Lipitor] 40 mg PO HS 05/18/16 [History] Clopidogrel [Plavix] 75 mg PO DAILY 05/18/16 [History] Docusate [Colace] 100 mg PO BID 05/18/16 [History] Hydrocodone/Acetaminophen [Eastman 5-325 Tablet] 1 tab PO TID PRN 05/18/16 [ History] Isosorbide MONOnitrate (24 HR) [Imdur] 60 mg PO DAILY 05/18/16 [History] Losartan [Cozaar] 25 mg PO DAILY 05/18/16 [History] Nitroglycerin [Nitrostat] 0.4 mg SL AD PRN 05/18/16 [History] Omeprazole [PriLOSEC] 20 mg PO DAILY 05/18/16 [History] Ranolazine [Ranexa] 500 mg PO BID 05/18/16 [History] Allergies pentazocine [From Talwin] Allergy (Verified 05/18/16 06:55) See Comments simvastatin Allergy (Verified 05/18/16 06:55) See Comments Varenicline [From Chantix] Allergy (Verified 05/18/16 06:55) See Comments Amoxicillin [From Augmentin] Adverse Reaction (Verified 05/18/16 06:55) Nausea clavulanic acid [From Augmentin] Adverse Reaction (Verified 05/18/16 06:55) Nausea codeine Adverse Reaction (Verified 05/18/16 06:55) Nausea Review of Systems ROS unobtainable: due to endotracheal tube Exam - Vital Signs Vital signs: Initial Vital Signs Temp Pulse Resp BP Pulse Ox 98.1 F 64 18 115/80 98 05/18/16 06:55 05/18/16 06:55 05/18/16 06:55 05/18/16 06:55 05/18/16 06:55 Vital Signs - Last 8 Hours Temp Pulse Resp BP Pulse Ox 05/19/16 11:00 68 26 145/58 94 L 05/19/16 10:27 98.3 F 66 26 134/55 05/19/16 10:08 98.3 F 05/19/16 10:06 74 26 142/58 97 05/19/16 10:00 74 26 135/56 97 05/19/16 09:14 26 134/55 99 05/19/16 09:00 73 26 124/46 100 05/19/16 08:49 98.1 F 74 26 124/48 100 05/19/16 08:34 98.1 F 74 26 124/48 99 05/19/16 08:00 73 26 129/51 100 05/19/16 07:40 26 124/48 100 05/19/16 07:30 62 05/19/16 07:00 58 26 127/55 100 05/19/16 06:02 26 123/57 100 05/19/16 05:58 67 26 120/59 100 05/19/16 05:00 74 26 133/64 99 05/19/16 04:00 98.4 F 62 26 115/55 97 05/19/16 03:56 26 109/55 98 Intake and Output 05/18/16 05/19/16 05/19/16 23:59 07:59 15:59 Intake Total 1683.9 / 1683.9 1855.1 / 1855.1 1541 / 1541 Output Total 550 / 550 450 / 450 150 / 150 Balance 1133.9 / 1133.9 1405.1 / 1405.1 1391 / 1391 Intake: IV Fluids 1683.9 / 1683.9 1855.1 / 1855.1 1241 / 1241 0.9 % Sodium Chloride 500 500 / 500 ML @ 1875 mls/hr IVC . Q16M ONE Rx#:[id number] Amiodarone 360mg/200mL 200 / 200 Drip Premix 360 mg In 200 ml @ 0.5 MG/MIN 16.667 mls/hr IVC CONT [facility] Rx#: [id number] EPINEPHrine 1 MG In 251 / 251 251 / 251 278 / 278 Dextrose 5% 250 ML @ 2 MCG/MIN 30.12 mls/hr IVC CONT [facility] Rx#:[id number] FentaNYL (PF) 1,000 MCG 100 / 100 100 / 100 100 / 100 In 0.9 % Sodium Chloride 80 ML @ 50 MCG/HR 5 mls/ hr IVC CONT [facility] Rx#: [id number] Heparin 25,000 UNIT/500 162 / 162 ML D5W 25,000 unit In 500 ml @ 14 UNIT/KG/HR 21.21 mls/hr IVC .[id number] [facility] Rx#:[id number] HumuLIN R 100 UNIT In 0. 24.9 / 24.9 95.1 / 95.1 63 / 63 9 % Sodium Chloride 100 ML @ 1 UNIT/HR 1.01 mls/ hr IVC CONT [facility] Rx#: [id number] Versed 50 MG In 0.9 % 100 / 100 Sodium Chloride 90 ML @ 2 MG/HR 4 mls/hr IVC CONT [facility] Rx#:[id number] Levophed 4 MG In Dextrose 508 / 508 5% 250 ML @ 8 MCG/MIN 30 .48 mls/hr IVC CONT [facility] Rx#:[id number] Levophed 16 MG In 183 / 183 0 / 0 Dextrose 5% 500 ML @ 5 MCG/MIN 9.67 mls/hr IVC CONT [facility] Rx#:[id number] Lactated Ringers 500 ML @ 500 / 500 1000 mls/hr IVC .Q30M ONE Rx#:[id number] ALBURX 5% 12.5 gm In 250 250 / 250 250 / 250 ml @ 60 mls/hr IVPB Q4H [facility] Rx#:[id number] Amiodarone 150mg/100mL 100 / 100 Premix 150 mg In 100 ml @ 300 mls/hr IVPB ONCE ONE Rx#:[id number] Calcium Gluconate 1,000 110 / 110 MG In Dextrose 5% 100 ML @ 50 mls/hr IVPB Q6HR PRN Rx#:[id number] Ancef 2,000 MG In 200 / 200 Dextrose 5% 100 ML @ 200 mls/hr IVPB Q8H [facility] Rx#: [id number] Magnesium Sulfate 2 GM In 104 / 104 Dextrose 5% 100 ML @ 50 mls/hr IVPB Q6H PRN Rx#: [id number] Zosyn 3.375 GM In 100 / 100 Dextrose 5% (Minibag+) 100 ML 100 ML @ 25 mls/hr IVPB Q8HR [facility] Rx#: [id number] Vancocin 1,250 MG In 250 / 250 Dextrose 5% 250 ML @ 167 mls/hr IVPB ONCE ONE Rx#: [id number] Oral 0 / 0 0 / 0 Blood Product 300 / 300 Rbcs Leuko Poor As-1 300 / 300 Unit [id number] Output: Catheter 450 / 450 450 / 450 150 / 150 Gastric Drainage 100 / 100 Other: Weight 80.2 kg 82.9 kg Blood Glucose* 359 116 99 Patient Weight 05/19/16 23:59 Weight 82.9 kg - General Appearance General appearance: well-developed, well-nourished, appears started age, moderate distress, sedated on ventilator, intubated EENT: ATNC, mucous membranes moist Neck: supple Respiratory: course breath sounds Cardiology: edema, regular rate, regular rhythm, normal S1, normal S2 Gastrointestinal: normoactive bowel sounds, no tenderness, no guarding Integumentary: no rash, warm and dry Additional Comments: Intubated, Sedated on HD Musculoskeletal: no erythema, no cyanosis Results - Lab Results 05/19/16 14:30 05/19/16 13:05 Most recent lab results ABG pH 7.30 pH Units (7.32-7.45) L 05/19/16 04:05 ABG pCO2 47 mmHg (35-45) H 05/19/16 04:05 ABG pO2 91 mmHg (85-104) 05/19/16 04:05 ABG HCO3 23.1 mEQ/L (21-27) 05/19/16 04:05 ABG O2 Saturation 96 % (95-98) 05/19/16 04:05 Calcium 7.0 mg/dL (8.6-10.8) L 05/19/16 03:30 Phosphorus 4.2 mg/dL (2.3-4.7) 05/19/16 03:30 Magnesium 1.5 mg/dL (1.6-2.6) L 05/19/16 03:30 I reviewed the above labs, meds, vitals and imaging. Consult Discharge Plan - Plan Referrals: John Peace MD [Primary Care Provider] - 05/24/16 9:45 am Salvador Bosch MD [Partnered Physician] - 06/28/16 1:00 pm
[2016-05-19 13:25] LABS: Ionized Calcium 1.01 mmol/L (1.15-1.35)
[2016-05-19 13:35] LABS: BUN/Creatinine Ratio 17 (6-26); Blood Urea Nitrogen 24 mg/dL (8-26); Calcium 7.1 mg/dL (8.6-10.8); Carbon Dioxide 20 mEq/L (19-29); Chloride 104 mEq/L (98-109); Glucose 160 mg/dL (70-99); Magnesium 1.6 mg/dL (1.6-2.6); Osmolality,Calculated 281 (280-300); Phosphorous 3.6 mg/dL (2.3-4.7); Sodium 132 mEq/L (136-145); eGFR For African Americans > 60 (> 60); eGFR For Non-African Americans 50 (> 60)
[2016-05-19 14:39] LABS: Basophils % 0.1 %; Hematocrit 25.1 % (37.5-50.1); Hemoglobin 8.7 g/dL (12.9-16.9); Immature Granulocytes % 0.5 % (0-4); Lymphocytes # 2.7 K/mcL (0.6-4.6); Lymphocytes % 13.6 %; Mean Corpuscular HGB Conc 34.7 g/dL (31.6-35.5); Mean Corpuscular Hemoglobin 30.7 pg (28.0-33.3); Mean Corpuscular Volume 88.7 fL (83.0-100.0); Mean Platelet Volume 9.8 fL (9.4-12.4); Monocytes # 2.4 K/mcL (0.0-1.3); Neutrophils # 14.8 K/mcL (1.6-8.9); Red Blood Count 2.83 M/mcL (4.19-5.50); Red Cell Distribution Width 16.8 % (11.5-14.5); Segmented Neutrophils % 73.8 %
[2016-05-19 14:41] LABS: Platelet Count 88 K/mcL (140-400)
--- NOTE | 2016-05-19 14:45 | Electrocardiograph Report ---
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
[2016-05-19] MEDS: Norepinephrine 16 MG in D5% in Water 500 ML IVC SCH ×2 (15:04→18:02)
[2016-05-19] MEDS: Heparin 25,000 UNIT/500 ML D5W 25,000 UNIT/500 ML MLS IVC SCH (15:34)
--- NOTE | 2016-05-19 17:59 | Vascular/Endovas Progress Note ---
Date of Encounter: 05/19/16 Time of Encounter: 16:30 - Assessment and plan (1) Abdominal aortic aneurysm Current Visit: Yes Status: Chronic He is postoperative day #1 after endograft repair of his aneurysm. He is no longer on levophed. His is being weaned off epinephrine. He is receiving blood. He has no evidence of ongoing blood loss at this time. His abdomen is soft and he has no hematomas. His hemoglobin will be rechecked after his tranfusion. His creatinine is improving today. He will continue to be wened off the ventilator. His family was updated this afternoon. Qualifiers: Presence of rupture: without rupture Qualified Code(s): I71.4 - Abdominal aortic aneurysm, without rupture (2) CAD (coronary artery disease) Current Visit: Yes Status: Acute Qualifiers: Coronary Disease-Associated Artery/Lesion type: unspecified vessel or lesion type [place] vs. transplanted heart: [place] heart Associated angina: without angina Qualified Code(s): I25.10 - Atherosclerotic heart disease of [place] coronary artery without angina pectoris (3) Carotid artery disease Current Visit: Yes Status: Chronic Qualifiers: Laterality: bilateral Qualified Code(s): I77.9 - Disorder of arteries and arterioles, unspecified (4) HLD (hyperlipidemia) Current Visit: Yes Status: Chronic Qualifiers: Hyperlipidemia type: mixed hyperlipidemia Qualified Code(s): E78.2 - Mixed hyperlipidemia (5) HTN (hypertension) Current Visit: Yes Status: Chronic Qualifiers: Hypertension type: essential hypertension Qualified Code(s): I10 - Essential (primary) hypertension (6) PAD (peripheral artery disease) Current Visit: Yes Status: Chronic (7) Tobacco abuse Current Visit: Yes Status: Chronic - Subjective Interval history: Patient remains sedated and intubated, he reponds appropriately when asked to squeeze my hand. Vital Signs, Last 4 Hours Temp Pulse Resp BP Pulse Ox 05/19/16 17:44 99.8 F H 66 26 117/50 97 05/19/16 17:36 99.8 F H 64 26 123/51 97 05/19/16 17:00 66 26 124/52 97 05/19/16 16:19 99.1 F 64 26 116/50 97 05/19/16 16:04 99.6 F 64 26 117/49 05/19/16 16:00 65 26 112/48 97 05/19/16 15:28 26 117/49 98 05/19/16 15:00 80 26 139/57 96 05/19/16 14:00 80 26 98/48 96 - Physical Examination General: Present: Other (sedated) Cardiac: Present: Reg Rate and Rhythm Lungs: Present: Normal Breath Sounds, No Wheeze, Rales, Rhonchi Neuro: Present: Other (sedated) Vascular: Present: Normal capillary refill, Pulse, normal, Surgical incisions ( bandages dry without hematoma or ecchymosis) Abdomen: Present: Soft, Non-tender. Absent: Masses (no ecchymosis or hematoma) Skin: Absent: No rashes noted on visualized skin - VTE Documentation of Mechanical Device: Intermittent pneumatic compression device Results 05/19/16 14:30 05/19/16 13:05 Lab Results, Last 24 hours 05/18/16 05/18/16 05/18/16 18:25 18:25 21:45 WBC Hgb Hct Plt Count INR 1.4 APTT 29.0 D Sodium 134 L Potassium 4.9 H D Chloride 106 Carbon Dioxide 19 BUN 23 Creatinine 1.61 H D Glucose 417 H Calcium 6.8 L Magnesium Total Bilirubin AST ALT Alkaline Phosphatase Troponin I 5.13 H* 05/18/16 05/18/16 05/18/16 22:35 22:56 22:56 WBC 18.3 H Hgb 9.1 L D Hct 27.0 L Plt Count 108 L INR APTT Sodium 137 Potassium 4.3 Chloride 106 Carbon Dioxide 18 L BUN 23 Creatinine 1.68 H Glucose 356 H Calcium 6.9 L Magnesium Total Bilirubin AST ALT Alkaline Phosphatase Troponin I 18.14 H* 05/19/16 05/19/16 05/19/16 02:00 02:00 03:30 WBC 18.2 H Hgb 9.1 L Hct 26.8 L Plt Count 110 L INR 1.5 APTT 110.6 H* D Sodium Potassium Chloride Carbon Dioxide BUN Creatinine Glucose Calcium Magnesium Total Bilirubin AST ALT Alkaline Phosphatase Troponin I 05/19/16 05/19/16 05/19/16 03:30 08:35 13:05 WBC 16.2 H Hgb 8.3 L Hct 23.8 L Plt Count 98 L INR APTT Sodium 135 L 132 L Potassium 3.5 4.0 Chloride 106 104 Carbon Dioxide 19 20 BUN 26 24 Creatinine 1.84 H 1.38 H Glucose 219 H 160 H Calcium 7.0 L 7.1 L Magnesium 1.5 L 1.6 Total Bilirubin 0.2 AST 50 H ALT 13 Alkaline Phosphatase 48 Troponin I 05/19/16 05/19/16 13:05 14:30 WBC 20.0 H Hgb 8.7 L Hct 25.1 L Plt Count 88 L INR APTT Sodium Potassium Chloride Carbon Dioxide BUN Creatinine Glucose Calcium Magnesium Total Bilirubin AST ALT Alkaline Phosphatase Troponin I 9.44 H* Consult Discharge Plan - Plan Referrals: John Peace MD [Primary Care Provider] - 05/24/16 9:45 am Salvador Bosch MD [Partnered Physician] - 06/28/16 1:00 pm
[2016-05-19] MEDS: Vancomycin 1,250 MG in D5% in Water 250 ML IVPB SCH (19:56)
[2016-05-19 21:09] LABS: Basophils % 0.1 %; Eosinophils % 0.1 %; Immature Granulocytes % 0.6 % (0-4)
[2016-05-19 21:11] LABS: Hematocrit 30.2 % (37.5-50.1); Hemoglobin 10.7 g/dL (12.9-16.9); Lymphocytes # 2.2 K/mcL (0.6-4.6); Lymphocytes % 12.5 %; Mean Corpuscular HGB Conc 35.4 g/dL (31.6-35.5); Mean Corpuscular Hemoglobin 30.6 pg (28.0-33.3); Mean Corpuscular Volume 86.3 fL (83.0-100.0); Mean Platelet Volume 9.9 fL (9.4-12.4); Monocytes # 2.1 K/mcL (0.0-1.3); Segmented Neutrophils % 74.7 %
[2016-05-19 21:14] LABS: Neutrophils # 12.9 K/mcL (1.6-8.9); Platelet Count 79 K/mcL (140-400)
[2016-05-20] MEDS: Piperacillin/Tazobactam 3.375 GM in D5% in Water (Mini-Bag+) 100 ML IVPB SCH ×3 (00:33→17:31)
[2016-05-20] MEDS: Lacri-Lube 3.5 GM TUBE BOTH EYES SCH ×6 (00:34→22:14)
[2016-05-20] MEDS ORDERED: Furosemide 40 MG/4 ML VIAL IV ONE (03:00)
[2016-05-20 03:57] LABS: Basophils % 0.1 %; Eosinophils % 0.1 %; Immature Granulocytes % 0.9 % (0-4); Ionized Calcium 1.06 mmol/L (1.15-1.35); Lymphocytes # 2.2 K/mcL (0.6-4.6); Lymphocytes % 11.7 %; Mean Corpuscular HGB Conc 35.5 g/dL (31.6-35.5); Mean Corpuscular Hemoglobin 30.8 pg (28.0-33.3); Mean Corpuscular Volume 86.8 fL (83.0-100.0); Mean Platelet Volume 10.5 fL (9.4-12.4); Monocytes # 2.2 K/mcL (0.0-1.3); Monocytes % 11.7 %; Red Blood Count 3.57 M/mcL (4.19-5.50); Red Cell Distribution Width 16.4 % (11.5-14.5); Segmented Neutrophils % 75.5 %
[2016-05-20 03:59] LABS: Platelet Count 78 K/mcL (140-400)
[2016-05-20 04:09] LABS: Alanine Aminotransferase 11 Units/L (0-55); Albumin 2.3 g/dL (3.5-5.0); Albumin/Globulin Ratio 1.3 (1.1-2.2); Alkaline Phosphatase 44 Units/L (38-126); Aspartate Amino Transferase 48 Units/L (5-34); BUN/Creatinine Ratio 18 (6-26); Blood Urea Nitrogen 23 mg/dL (8-26); Calcium 7.5 mg/dL (8.6-10.8); Carbon Dioxide 22 mEq/L (19-29); Chloride 102 mEq/L (98-109); Globulin 1.8 g/dL (2.4-3.5); Glucose 128 mg/dL (70-99); Magnesium 2.1 mg/dL (1.6-2.6); Osmolality,Calculated 271 (280-300); Phosphorous 3.2 mg/dL (2.3-4.7); Potassium 4.5 mEq/L (3.5-4.5); Sodium 128 mEq/L (136-145); Total Protein 4.1 g/dL (6.0-8.3); eGFR For African Americans > 60 (> 60); eGFR For Non-African Americans 55 (> 60)
[2016-05-20 04:38] LABS: Bilirubin,Total 0.9 mg/dL (0.2-1.2)
[2016-05-20 05:13] LABS: ABG Base Excess 0.2 mEq/L (-2.0 to 3.0); ABG HCO3 23.3 mEQ/L (21-27); ABG Oxygen Saturation 96 % (95-98); ABG PCO2 32 mmHg (35-45); ABG PH 7.47 pH Units (7.32-7.45); ABG PO2 79 mmHg (85-104); ABG TCO2 24.3 mEq/L (20-26); Blood Gas VT 500 cc
[2016-05-20] MEDS: Calcium Gluconate 1,000 MG in D5% in Water 100 ML IVPB PRN (06:25)
--- NOTE | 2016-05-20 06:32 | Pulmonology Progress Note ---
Date of Encounter: 05/20/16 Time of Encounter: 06:32 Assessment and Plan (1) Acute respiratory failure with hypoxia Current Visit: Yes Status: Acute I spent 40min of Critical Care time with this patient. It involved decision making of high complexity to assess, manipulate, and support vital organ system failure and/or to prevent further life threatening deterioration of the patient' s condition. The time involved in the performance of separately reportable procedures was not counted toward critical care time. Neuro: S/p Cardiac Arrest noted to have movement of all extremities. Sedation/ Analgesia for intubation Goal RASS (-2). Is alert today during sedation holiday. Does have some new right weakness will check head CT to r/o acute stroke (deemed less likely) in change in pulses but could also consider vasc insuff and consider CTA based upon clinical course. Pulm: intubated with acceptable oxygenation/ventilation (goal sat around 92%) on FIo2%=40 and PEEP =5; ETT high but repositioned; (suspect tracheal deviation ?s/t aorta aneurysm ABG reassuring. Weaning trial later today as tolerated Cards/Vasc: POD#2 s/p Endograft repair of abdominal aortic aneurysm in setting of vasculopathy and severe underlying CAD with cardiomyopathy s/p ACLS x 3 complicated by shock now off vasopressor. Evidence of cardiac ischemia with troponin elevation to >15 now trending down has historyf severe CAD with known history of RCA obstruction Cardiology recs for heparin but drop in H/H so stopped yesterday H/H stable today but with clinically improvement Cards does not recommend restarting. cont Amio started for Vtach. BP has been labile with periods of hypertension and hypotension which appears sedation mediated. Cont Statin ASA and can restart Plavix FEN-GI: PPi for GI prophy. NPO for now nutrition consult for Enteral feedings if not extubated. Renal: NIKOLE s/t to hypotension now improving UOP accepatble. Nephro consulted no NEONATAL SURGEON. Benjamin placed for strict I/Os replace Lytes per protocol ID: sterile field broken during ACLS so empiric abx started with ongoing shock ( Vanc/Zosyn) for HAP organisms (MRSA/PSDA) cultures obtained deeescalate based upon micro s/s. Had mild fever yesterday today afebrile. Heme/Onc: Thrombcytopenia s/t to critical illness. stable H/H stable today after tranfusion yesterday goal ugb >9 no evidence of active extravasation Endo: Hyperglycemia noted cont insuling gtt for goal 140-180 Integ: skin care per ICU protocol to prevent ulcers CODE: Full. I spent 20mintues with family updating and daughter on plan of care and answering all questions. (2) NIKOLE (acute kidney injury) Current Visit: Yes Status: Acute (3) CAD (coronary artery disease) Current Visit: Yes Status: Acute Qualifiers: Coronary Disease-Associated Artery/Lesion type: unspecified vessel or lesion type [place] vs. transplanted heart: [place] heart Associated angina: without angina Qualified Code(s): I25.10 - Atherosclerotic heart disease of [place] coronary artery without angina pectoris (4) Cardiac arrest Current Visit: Yes Status: Acute (5) DVT prophylaxis Current Visit: Yes Status: Acute (6) Elevated troponin I level Current Visit: Yes Status: Acute (7) Metabolic acidosis Current Visit: Yes Status: Acute (8) Abdominal aortic aneurysm Current Visit: Yes Status: Chronic Qualifiers: Presence of rupture: without rupture Qualified Code(s): I71.4 - Abdominal aortic aneurysm, without rupture (9) Carotid artery disease Current Visit: Yes Status: Chronic Qualifiers: Laterality: bilateral Qualified Code(s): I77.9 - Disorder of arteries and arterioles, unspecified (10) HLD (hyperlipidemia) Current Visit: Yes Status: Chronic Qualifiers: Hyperlipidemia type: mixed hyperlipidemia Qualified Code(s): E78.2 - Mixed hyperlipidemia (11) HTN (hypertension) Current Visit: Yes Status: Chronic Qualifiers: Hypertension type: essential hypertension Qualified Code(s): I10 - Essential (primary) hypertension (12) PAD (peripheral artery disease) Current Visit: Yes Status: Chronic (13) Tobacco abuse Current Visit: Yes Status: Chronic Subjective Principal diagnosis: Cardiac arrest Interval history: weaned off pressors Acceptable UOP minimal vent settings stable H/H after transfusion. Objective PUL Vital signs: Last Vital Signs Temp 100.9 F H 05/20/16 03:51 Pulse 84 05/20/16 06:10 Resp 26 05/20/16 06:10 BP 183/80 05/20/16 06:10 Pulse Ox 98 05/20/16 06:10 General appearance: other (appears comfortable on vent ) Eyes: nonicteric ENT: other (intubated with bite block placed ) Effort: normal Auscultation: bilateral: diminished breath sounds Cardiovascular: regular rate and rhythm Gastrointestinal: normoactive bowel sounds, soft Extremities: other (doplerable distal pulses unchanged femoral groin sites s/p surgery c/d/i without evidence of hematoma ) pupils equal and round, other (RUE and RLE appears to be weaker than left although he does spontaneously move. Pulses palpable in RUE and w/o change ( dopplerable in RLE). ) Ventilator Settings Ventilator Settings: Ventilator Settings, Last 8 Hours Ventilator Mode VC+ Ventilator Mode VC+ Ventilator Mode VC+ Ventilator Mode VC+ Ventilator Mode VC+ Ventilator Mode VC+ Ventilator Mode VC+ Ventilator Mode VC+ Ventilator Mode VC+ Ventilator Mode VC+ Ventilator Mode VC+ Ventilator Mode VC+ Ventilator Mode VC+ Ventilator Tidal Volume 500 Setting Ventilator Tidal Volume 500 Setting Ventilator Tidal Volume 500 Setting Ventilator Tidal Volume 500 Setting Ventilator Tidal Volume 500 Setting Ventilator Tidal Volume 500 Setting Ventilator Tidal Volume 500 Setting Ventilator Tidal Volume 500 Setting Ventilator Tidal Volume 500 Setting Ventilator Tidal Volume 500 Setting Ventilator Tidal Volume 500 Setting Ventilator Tidal Volume 500 Setting Ventilator Tidal Volume 500 Setting Ventilator Respiratory Rate 26 Setting Ventilator Respiratory Rate 26 Setting Ventilator Respiratory Rate 26 Setting Ventilator Respiratory Rate 26 Setting Ventilator Respiratory Rate 26 Setting Ventilator Respiratory Rate 26 Setting Ventilator Respiratory Rate 26 Setting Ventilator Respiratory Rate 26 Setting Ventilator Respiratory Rate 26 Setting Ventilator Respiratory Rate 26 Setting Ventilator Respiratory Rate 26 Setting Ventilator Respiratory Rate 26 Setting Ventilator Respiratory Rate 26 Setting Actual Respiratory Rate 26 Actual Respiratory Rate 26 Actual Respiratory Rate 26 Actual Respiratory Rate 26 Positive End Expiratory 5 Pressure Positive End Expiratory 5 Pressure Positive End Expiratory 5 Pressure Positive End Expiratory 5 Pressure Positive End Expiratory 5 Pressure Positive End Expiratory 5 Pressure Positive End Expiratory 5 Pressure Positive End Expiratory 5 Pressure Positive End Expiratory 5 Pressure Positive End Expiratory 5 Pressure Positive End Expiratory 5 Pressure Positive End Expiratory 5 Pressure Positive End Expiratory 5 Pressure Peak Inspiratory Airway 28 Pressure Peak Inspiratory Airway 26 Pressure Peak Inspiratory Airway 25 Pressure Peak Inspiratory Airway 26 Pressure Results - Laboratory Findings CBC and BMP: 05/20/16 03:33 05/20/16 03:33 ABG ABG pH 7.47 pH Units (7.32-7.45) H 05/20/16 04:20 ABG pCO2 32 mmHg (35-45) L 05/20/16 04:20 ABG pO2 79 mmHg (85-104) L 05/20/16 04:20 ABG O2 Saturation 96 % (95-98) 05/20/16 04:20 PT/INR, D-dimer PT 15.9 Seconds (9.4-12.1) H 05/19/16 02:00 Abnormal lab findings: Abnormal lab results WBC 18.6 K/mcL (4.3-11.1) H 05/20/16 03:33 RBC 3.57 M/mcL (4.19-5.50) L 05/20/16 03:33 Hgb 11.0 g/dL (12.9-16.9) L 05/20/16 03:33 Hct 31.0 % (37.5-50.1) L 05/20/16 03:33 RDW 16.4 % (11.5-14.5) H 05/20/16 03:33 Plt Count 78 K/mcL (140-400) L 05/20/16 03:33 Neutrophils # 14.0 K/mcL (1.6-8.9) H 05/20/16 03:33 Monocytes # 2.2 K/mcL (0.0-1.3) H 05/20/16 03:33 Nucleated RBCs/100 WBC 0.1 /100 WBC (0) H 05/19/16 08:35 PT 15.9 Seconds (9.4-12.1) H 05/19/16 02:00 APTT 110.6 Seconds (26.0-36.0) H* D 05/19/16 02:00 ABG pH 7.47 pH Units (7.32-7.45) H 05/20/16 04:20 ABG pCO2 32 mmHg (35-45) L 05/20/16 04:20 ABG pO2 79 mmHg (85-104) L 05/20/16 04:20 ABG Hematocrit 23 % (35-51) L 05/18/16 12:03 Glucose 201 mg/dL (60-95) H 05/18/16 12:03 Lactate 7.6 mmol/L (0.7-2.1) H* 05/18/16 12:03 Sodium 128 mEq/L (136-145) L 05/20/16 03:33 Creatinine 1.27 mg/dL (0.72-1.25) H 05/20/16 03:33 Est GFR (Non-Af Amer) 55 (> 60) L 05/20/16 03:33 Glucose 128 mg/dL (70-99) H 05/20/16 03:33 POC Glucose 140 (58-89) H 05/20/16 05:59 Calculated Osmolality 271 (280-300) L 05/20/16 03:33 Lactic Acid 3.0 mmol/L (0.5-2.2) H 05/19/16 14:30 Calcium 7.5 mg/dL (8.6-10.8) L 05/20/16 03:33 Ionized Calcium 1.06 mmol/L (1.15-1.35) L 05/20/16 03:33 AST 48 Units/L (5-34) H 05/20/16 03:33 Troponin I 9.44 ng/mL (0-0.03) H* 05/19/16 13:05 Serum Total Protein 4.1 g/dL (6.0-8.3) L 05/20/16 03:33 Albumin 2.3 g/dL (3.5-5.0) L 05/20/16 03:33 Globulin 1.8 g/dL (2.4-3.5) L 05/20/16 03:33 - Microbiology Findings Microbiology Findings: Microbiology, Last 48 Hours 05/18/16 22:56 Blood Culture - Preliminary Peripheral Venipuncture No growth. 05/18/16 22:35 Blood Culture - Preliminary Peripheral Venipuncture No growth. 05/18/16 22:18 Urine Culture - Final Urine,[place] No growth. 05/19/16 09:15 Sputum Culture - Final Sputum - Clinical Findings Intake & Output: Intake & Output 05/19/16 05/19/16 05/20/16 15:59 23:59 07:59 Intake Total 2235 / 2235 1360.6 / 1360.6 105.7 / 105.7 Output Total 450 / 450 335 / 335 565 / 565 Balance 1785 / 1785 1025.6 / 1025.6 -459.3 / -459.3 Weight 82.9 kg 83.5 kg - VTE Documentation of Mechanical Device: Intermittent pneumatic compression device Consult Discharge Plan - Plan Referrals: John Peace MD [Primary Care Provider] - 05/24/16 9:45 am Salvador Bosch MD [Partnered Physician] - 06/28/16 1:00 pm
[2016-05-20] MEDS ORDERED: *HR* Metoprolol 5 MG/5 ML VIAL IVP PRN (06:59)
[2016-05-20] MEDS ORDERED: Dexmedetomidine HCl 400 MCG/100 ML MLS IVC SCH (07:00)
[2016-05-20] MEDS: FentaNYL (PF) 1,000 MCG in 0.9 % Sodium Chloride 80 ML IVC SCH ×2 (08:01→20:26)
[2016-05-20] MEDS: Chlorhexidine Rinse 15 ML MOUTHWASH MM SCH ×2 (08:03→21:49)
[2016-05-20] MEDS: Pantoprazole 40 MG VIAL IVPB SCH (08:04)
[2016-05-20] MEDS: Aspirin 81 MG TAB.CHEW PO SCH (08:04)
--- NOTE | 2016-05-20 09:03 | Cardiology Progress Note ---
Date of Encounter: 05/20/16 Time of Encounter: 09:01 Assessment and Plan (1) CAD (coronary artery disease) Current Visit: Yes Status: Acute Patient's significant coronary artery disease as listed above, continue medical management. Qualifiers: Coronary Disease-Associated Artery/Lesion type: unspecified vessel or lesion type [place] vs. transplanted heart: [place] heart Associated angina: without angina Qualified Code(s): I25.10 - Atherosclerotic heart disease of [place] coronary artery without angina pectoris (2) Cardiac arrest Current Visit: Yes Status: Acute 05/19/2016: Patient has been seen and evaluated this am. He continues to remain intubated and sedated in the ICU. He has been weaned off vasopressor support and his metabolic acidosis is improving. Plan: - Continue stabilize patient status post cardiac arrest per pulmonary ICU team. Possible extubation today - Patient is hypotensive continue to hold antihypertensive medications including his beta [place]. - Plan to restart atorvastatin when patient is extubated and passed a swallow test. - Patient status post AAA endograft - Continue Amiodarone drip for rhythm stabilization - would continue until extubated and is otherwise stable. (3) Abdominal aortic aneurysm Current Visit: Yes Status: Chronic Per Vasular surgery - Stable so far - no acute issues. . Qualifiers: Presence of rupture: without rupture Qualified Code(s): I71.4 - Abdominal aortic aneurysm, without rupture (4) PAD (peripheral artery disease) Current Visit: Yes Status: Chronic no acute issues. Discussion w patient/family: The assessment and plan as outlined above was discussed with the patient and/or family members who expressed understanding and agreement. All questions were answered. Thank you for involving us in the care of your patient. Please call with any questions. Subjective Principal diagnosis: Cardiac arrest Interval history: Patient still intubated - off pressors. at bedside Objective Vital Signs, Last 4 Hours Temp Pulse Resp BP Pulse Ox 05/20/16 07:45 98.5 F 05/20/16 07:00 79 28 121/54 95 05/20/16 06:10 84 26 183/80 98 05/20/16 05:37 26 185/82 98 General: Other (Intubated, arousable when sedation stopped per nursing. ) HEENT: Atraumatic, Normocephaly Neck: No JVD Cardiac: Reg Rate and Rhythm, No Murmur Lungs: Other (Mechanical breath sounds, fair air movement) Neuro: No focal deficits noted, Other (sedated) Abdomen: Soft, Non-Tender Skin: No rashes noted on visualized skin Musculoskeletal: No Chest Wall Tenderness Extremities: No Cyanosis, No Edema Results 05/20/16 03:33 05/20/16 03:33 Lab Results 05/19/16 05/19/16 05/19/16 08:35 13:05 13:05 WBC 16.2 H Hgb 8.3 L Hct 23.8 L Plt Count 98 L Sodium 132 L Potassium 4.0 Chloride 104 Carbon Dioxide 20 BUN 24 Creatinine 1.38 H Glucose 160 H Calcium 7.1 L Magnesium 1.6 Total Bilirubin AST ALT Alkaline Phosphatase Troponin I 9.44 H* 05/19/16 05/19/16 05/20/16 14:30 21:00 03:33 WBC 20.0 H 17.3 H 18.6 H Hgb 8.7 L 10.7 L D 11.0 L Hct 25.1 L 30.2 L 31.0 L Plt Count 88 L 79 L 78 L Sodium Potassium Chloride Carbon Dioxide BUN Creatinine Glucose Calcium Magnesium Total Bilirubin AST ALT Alkaline Phosphatase Troponin I 05/20/16 03:33 WBC Hgb Hct Plt Count Sodium 128 L Potassium 4.5 Chloride 102 Carbon Dioxide 22 BUN 23 Creatinine 1.27 H Glucose 128 H Calcium 7.5 L Magnesium 2.1 Total Bilirubin 0.9 D AST 48 H ALT 11 Alkaline Phosphatase 44 Troponin I - Imaging and Cardiology Echo: report reviewed (LVEF ~45-50%) - VTE Documentation of Mechanical Device: Intermittent pneumatic compression device Consult Discharge Plan - Plan Referrals: John Peace MD [Primary Care Provider] - 05/24/16 9:45 am Salvador Bosch MD [Partnered Physician] - 06/28/16 1:00 pm
[2016-05-20] MEDS: Amiodarone Premix 360 MG/200 ML BAG IVC SCH ×2 (09:09→21:30)
[2016-05-20] MEDS ORDERED: Albumin Human 5% 25 GM/500 ML VIAL IVPB ONE ×2 (11:00→15:54)
--- NOTE | 2016-05-20 11:14 | Nephrology Progress Note ---
Date of Encounter: 05/20/16 Time of Encounter: 09:30 - Assessment and Plan (1) NIKOLE (acute kidney injury) Current Visit: Yes Status: Acute SCr is improving nicely as is his UOP. No WATCH AND CLOCK REPAIR CLERK needed at this time. Hyponatremia: limit the obligate inputs and caution with the vehicles for his various drips, some of which are mixed in hypotonic IVF. Will check U osmo, S osmo, serum uric acid. Thank you. (2) Cardiac arrest Current Visit: Yes Status: Acute (3) Metabolic acidosis Current Visit: Yes Status: Acute (4) HTN (hypertension) Current Visit: Yes Status: Chronic Qualifiers: Qualified Code(s): I10 - Essential (primary) hypertension Subjective Principal diagnosis: Cardiac arrest Interval history: Pt was s/e while in the ICU. Discussed with the RN and ICU team. No family at bedside. Objective - Vital Signs Vital signs: Vital Signs Temp Pulse Resp BP Pulse Ox 05/20/16 10:00 77 23 89/59 95 05/20/16 09:00 58 22 99/52 96 05/20/16 08:00 68 26 111/56 95 05/20/16 07:45 98.5 F 05/20/16 07:00 79 28 121/54 95 05/20/16 06:10 84 26 183/80 98 05/20/16 05:37 26 185/82 98 05/20/16 05:00 80 26 163/77 98 05/20/16 04:00 66 26 136/59 93 L 05/20/16 03:51 100.9 F H 05/20/16 03:23 26 148/63 94 L 05/20/16 03:00 62 26 142/58 94 L 05/20/16 02:20 78 26 134/60 94 L 05/20/16 01:24 26 133/61 96 05/20/16 01:00 69 26 125/59 96 05/20/16 00:23 101.4 F H 05/20/16 00:00 62 26 137/51 92 L 05/19/16 23:33 26 136/54 92 L 05/19/16 23:00 64 26 133/51 93 L 05/19/16 22:00 73 26 144/58 94 L 05/19/16 21:30 26 119/45 93 L 05/19/16 21:00 70 26 129/47 93 L 05/19/16 20:21 100.7 F H 63 12 105/41 93 L 05/19/16 20:00 101.3 F H 84 26 91/62 97 05/19/16 19:44 26 125/54 95 05/19/16 19:00 62 26 121/50 96 05/19/16 18:06 99.7 F H 05/19/16 18:05 99.7 F H 66 26 121/52 97 05/19/16 18:00 66 26 117/51 97 05/19/16 17:59 99.7 F H 66 26 121/52 97 05/19/16 17:44 99.8 F H 66 26 117/50 97 05/19/16 17:36 99.8 F H 64 26 123/51 97 05/19/16 17:00 66 26 124/52 97 05/19/16 16:19 99.1 F 64 26 116/50 97 05/19/16 16:04 99.6 F 64 26 117/49 05/19/16 16:00 65 26 112/48 97 05/19/16 15:28 26 117/49 98 05/19/16 15:00 80 26 139/57 96 05/19/16 14:00 80 26 98/48 96 05/19/16 13:30 26 98/48 93 L 05/19/16 13:00 83 26 122/51 92 L 05/19/16 12:00 81 26 98/44 95 05/19/16 11:18 26 98/48 93 L Intake and Output 05/19/16 05/20/16 05/20/16 23:59 07:59 15:59 Intake Total 1360.6 / 1360.6 207.2 / 207.2 200 / 200 Output Total 335 / 335 715 / 715 Balance 1025.6 / 1025.6 -507.8 / -507.8 200 / 200 Intake: IV Fluids 680.6 / 680.6 207.2 / 207.2 200 / 200 Amiodarone 360mg/200mL 200 / 200 200 / 200 Drip Premix 360 mg In 200 ml @ 0.5 MG/MIN 16.667 mls/hr IVC CONT [facility] Rx#: [id number] FentaNYL (PF) 1,000 MCG 45 / 45 100 / 100 In 0.9 % Sodium Chloride 80 ML @ 50 MCG/HR 5 mls/ hr IVC CONT [facility] Rx#: [id number] HumuLIN R 100 UNIT In 0. 26.6 / 26.6 7.2 / 7.2 9 % Sodium Chloride 100 ML @ 1 UNIT/HR 1.01 mls/ hr IVC [facility] Rx#: [id number] Versed 50 MG In 0.9 % 6 / 6 Sodium Chloride 90 ML @ 2 MG/HR 4 mls/hr IVC CONT [facility] Rx#:[id number] Levophed 16 MG In 53 / 53 Dextrose 5% 500 ML @ 5 MCG/MIN 9.67 mls/hr IVC [facility] Rx#:[id number] Zosyn 3.375 GM In 100 / 100 100 / 100 Dextrose 5% (Minibag+) 100 ML 100 ML @ 25 mls/hr IVPB Q8HR [facility] Rx#: [id number] Vancocin 1,250 MG In 250 / 250 Dextrose 5% 250 ML @ 166. 667 mls/hr IVPB Q24H [facility] Rx#:[id number] Oral 0 / 0 Blood Product 680 / 680 Rbcs Leuko Poor As-1 300 / 300 Unit [id number] Rbcs Leuko Poor As-1 380 / 380 Unit [id number] Output: Catheter 275 / 275 575 / 575 Gastric Drainage 60 / 60 140 / 140 Other: Weight 83.5 kg 87 kg Blood Glucose* 122 112 Patient Weight 05/20/16 23:59 Weight 87 kg - General Appearance Exam: General appearance: well-developed, well-nourished, appears started age, moderate distress, sedated on ventilator, intubated EENT: ATNC, mucous membranes moist Neck: supple Respiratory: course breath sounds Cardiology: edema, regular rate, regular rhythm, normal S1, normal S2 Gastrointestinal: normoactive bowel sounds, no tenderness, no guarding Integumentary: no rash, warm and dry Additional Comments: Intubated, Sedated on HD Musculoskeletal: no erythema, no cyanosis - Lab 05/22/16 12:50 05/22/16 03:40 Most recent lab results ABG pH 7.47 pH Units (7.32-7.45) H 05/20/16 04:20 ABG pCO2 32 mmHg (35-45) L 05/20/16 04:20 ABG pO2 55 mmHg (85-104) L 05/20/16 10:43 ABG HCO3 23.3 mEQ/L (21-27) 05/20/16 04:20 ABG O2 Saturation 96 % (95-98) 05/20/16 04:20 Calcium 7.5 mg/dL (8.6-10.8) L 05/20/16 03:33 Phosphorus 3.2 mg/dL (2.3-4.7) 05/20/16 03:33 Magnesium 2.1 mg/dL (1.6-2.6) 05/20/16 03:33 - VTE Documentation of Mechanical Device: Intermittent pneumatic compression device Consult Discharge Plan - Plan Referrals: John Peace MD [Primary Care Provider] - 05/24/16 9:45 am Salvador Bosch MD [Partnered Physician] - 06/28/16 1:00 pm Prescriptions: RX: Atorvastatin [Lipitor] 40 mg PO HS #1 tablet
--- NOTE | 2016-05-20 12:48 | Event Note ---
Date of Encounter: 05/20/16 Time of Encounter: 12:44 Concern for CVA given findings of R upper and Lower ext weakness. Emergent Head CT done without evidence of acute bleed however sub acute infarcts noted. Likely s/t to hypotension during arrest of subsequent shock with underlying carotid artery disease. I called Neurology to evaluate the patient and updated primary vascular surgeon with updated clinical findings. I also spoke with and updated her on condition.
--- NOTE | 2016-05-20 13:01 | Neurology - Consult Note ---
Date of Encounter: 05/20/16 Time of Encounter: 12:58 Assessment and Plan (1) CVA (cerebral vascular accident) Current Visit: Yes Status: Acute Patient is a 75 year old with severe PVD, history of left carotid artery disease , occlusion, s/p right carotid artery endarterectomy who developed what appeared to be left sided watershed ischemic infarct, likely occurring during vascular surgery. Has history of left ICA occlussion per history and this may contributed to the hypotension induced cerebral ischemic infarct. Physical examination showed left gaze preference and right sided weakness arm more than leg, consistent with left parietal region infarct. Treatment is largely supportive at this moment. Would prefer BP to be on the higher side to ensure adequate cerebral perfusion. In terms of neurological prognosis, he likely will have right sided weakness and aphasia. CT of head showed no significant mass effects or midline shift. Mental status may worsen in the next 1-2 days due to possible edema and then improve if medical conditions stabilize. Please continue medical and supportive care. Agree with aspirin 81mg daily. Continue DVT prophylaxis. PT evaluation when applicable. Qualifiers: CVA mechanism: occlusion Precerebral and cerebral artery: carotid artery Laterality of affected vessel: left Qualified Code(s): I63.232 - Cerebral infarction due to unspecified occlusion or stenosis of left carotid arteries History of Present Illness Chief complaint: right sided weakness and stroke HPI: Mr. Rosado is a 75 year old male with PMH significant for PVD, COPD, HTN, carotid artery disease, s/p right carotid endarterectomy, left ICA occlusion?, who developed intraoperative cardiac arrest yesterday during aortic artery repair. Patient was found to have dense right sided weakness this AM and CT of head showed left parietal infarct. No hemorrhage. Patient is still on propofol sedation but waking up and open eyes to stimulation. CT of head reviewed, and it showed Subacute left posterior watershed distribution cerebral infarct. No mass effect. Past Med Surg Social Fam HX - Past Medical History Medical history: aortic aneurysm, GERD Psychiatric history: no psych history - Past Surgical History Surgical History: carotid endarterectomy - Social History Smoking Status: Current every day smoker Packs per day: 1 Smokeless Tobacco Status: No Alcohol use: none Drug use: none Medications and Allergies Aspirin 81 mg PO DAILY 05/18/16 [History] Atenolol [Tenormin] 50 mg PO DAILY 05/18/16 [History] Atorvastatin [Lipitor] 40 mg PO HS 05/18/16 [History] Clopidogrel [Plavix] 75 mg PO DAILY 05/18/16 [History] Docusate [Colace] 100 mg PO BID 05/18/16 [History] Hydrocodone/Acetaminophen [[place] 5-325 Tablet] 1 tab PO TID PRN 05/18/16 [ History] Isosorbide MONOnitrate (24 HR) [Imdur] 60 mg PO DAILY 05/18/16 [History] Losartan [Cozaar] 25 mg PO DAILY 05/18/16 [History] Nitroglycerin [Nitrostat] 0.4 mg SL AD PRN 05/18/16 [History] Omeprazole [PriLOSEC] 20 mg PO DAILY 05/18/16 [History] Ranolazine [Ranexa] 500 mg PO BID 05/18/16 [History] Atorvastatin [Lipitor] 40 mg PO HS #1 tablet 05/20/16 [Rx] Allergies pentazocine [From Talwin] Allergy (Verified 05/18/16 06:55) See Comments simvastatin Allergy (Verified 05/18/16 06:55) See Comments Varenicline [From Chantix] Allergy (Verified 05/18/16 06:55) See Comments Amoxicillin [From Augmentin] Adverse Reaction (Verified 05/18/16 06:55) Nausea clavulanic acid [From Augmentin] Adverse Reaction (Verified 05/18/16 06:55) Nausea codeine Adverse Reaction (Verified 05/18/16 06:55) Nausea All Systems: A 10-system review of systems was performed and is negative for pertinent findings except as documented above in the HPI. Physical Examination - Vital Signs Vital Signs: Initial Vital Signs Temp Pulse Resp BP Pulse Ox 98.1 F 64 18 115/80 98 05/18/16 06:55 05/18/16 06:55 05/18/16 06:55 05/18/16 06:55 05/18/16 06:55 - Constitutional General appearance: chronically ill - Neurologic Sensorimotor examination: other (Unable to assess due to sedation and aphasia) Detailed motor examination: other (Right arm flaccid paralysis noted. Able to wiggle right toes when stimulated. Able to move left arm) Detailed sensory examination: other (Unable to assess due to sedation and aphasia) Posture: other (Right gaze preference noted) Reflexes: Biceps: 0, Triceps: 0, Brachioradialis: 0, Patella: 0, Achilles: 0 Mental Status Examination: drowsy, opens eyes to voice, expressive aphasia Cranial nerve examination: PERRL (Gaze to left side. No nystagmus), EOMI ( unable to assess, does not follow command), visual constantino intact (Unable to assess), corneal reflexes brisk symmetrically, sensory to face intact (Unable to assess) Results - Laboratory Findings CBC and BMP: 05/20/16 03:33 05/20/16 03:33 Abnormal lab findings: Abnormal lab results WBC 18.6 K/mcL (4.3-11.1) H 05/20/16 03:33 RBC 3.57 M/mcL (4.19-5.50) L 05/20/16 03:33 Hgb 11.0 g/dL (12.9-16.9) L 05/20/16 03:33 Hct 31.0 % (37.5-50.1) L 05/20/16 03:33 RDW 16.4 % (11.5-14.5) H 05/20/16 03:33 Plt Count 78 K/mcL (140-400) L 05/20/16 03:33 Neutrophils # 14.0 K/mcL (1.6-8.9) H 05/20/16 03:33 Monocytes # 2.2 K/mcL (0.0-1.3) H 05/20/16 03:33 Nucleated RBCs/100 WBC 0.1 /100 WBC (0) H 05/19/16 08:35 PT 15.9 Seconds (9.4-12.1) H 05/19/16 02:00 APTT 110.6 Seconds (26.0-36.0) H* D 05/19/16 02:00 ABG pH 7.47 pH Units (7.32-7.45) H 05/20/16 04:20 ABG pCO2 32 mmHg (35-45) L 05/20/16 04:20 ABG pO2 55 mmHg (85-104) L 05/20/16 10:43 ABG Hematocrit 23 % (35-51) L 05/18/16 12:03 Glucose 201 mg/dL (60-95) H 05/18/16 12:03 Lactate 7.6 mmol/L (0.7-2.1) H* 05/18/16 12:03 Sodium 128 mEq/L (136-145) L 05/20/16 03:33 Creatinine 1.27 mg/dL (0.72-1.25) H 05/20/16 03:33 Est GFR (Non-Af Amer) 55 (> 60) L 05/20/16 03:33 Glucose 128 mg/dL (70-99) H 05/20/16 03:33 POC Glucose 112 (58-89) H 05/20/16 11:52 Calculated Osmolality 271 (280-300) L 05/20/16 03:33 Lactic Acid 3.0 mmol/L (0.5-2.2) H 05/19/16 14:30 Calcium 7.5 mg/dL (8.6-10.8) L 05/20/16 03:33 Ionized Calcium 1.06 mmol/L (1.15-1.35) L 05/20/16 03:33 AST 48 Units/L (5-34) H 05/20/16 03:33 Troponin I 9.44 ng/mL (0-0.03) H* 05/19/16 13:05 Serum Total Protein 4.1 g/dL (6.0-8.3) L 05/20/16 03:33 Albumin 2.3 g/dL (3.5-5.0) L 05/20/16 03:33 Globulin 1.8 g/dL (2.4-3.5) L 05/20/16 03:33 Consult Discharge Plan - Plan Referrals: John Peace MD [Primary Care Provider] - 05/24/16 9:45 am Salvador Bosch MD [Partnered Physician] - 06/28/16 1:00 pm Prescriptions: Atorvastatin [Lipitor] 40 mg PO HS #1 tablet
[2016-05-20] MEDS ORDERED: Albumin Human 5% 25.0 GM/500 ML VIAL ONE (15:02)
[2016-05-20] MEDS: *HR* Heparin 5,000 UNIT/ML VIAL SQ SCH (15:53)
[2016-05-20] MEDS: Norepinephrine 4 MG in D5% in Water 250 ML IVC SCH (16:30)
[2016-05-20] MEDS: Vancomycin 1,250 MG in D5% in Water 250 ML IVPB SCH (21:50)
[2016-05-21] MEDS: Piperacillin/Tazobactam 3.375 GM in D5% in Water (Mini-Bag+) 100 ML IVPB SCH ×4 (01:00→23:57)
[2016-05-21] MEDS: Lacri-Lube 3.5 GM TUBE BOTH EYES SCH ×6 (01:27→21:14)
[2016-05-21] MEDS: Norepinephrine 4 MG in D5% in Water 250 ML IVC SCH (03:05)
[2016-05-21 03:50] LABS: Basophils % 0.1 %
[2016-05-21 03:51] LABS: Eosinophils % 0.3 %; Segmented Neutrophils % 76.7 %
[2016-05-21 03:56] LABS: Ionized Calcium 1.07 mmol/L (1.15-1.35)
[2016-05-21 04:02] LABS: Magnesium 1.7 mg/dL (1.6-2.6); Phosphorous 3.4 mg/dL (2.3-4.7)
[2016-05-21 04:04] LABS: Albumin 2.6 g/dL (3.5-5.0); Albumin/Globulin Ratio 1.4 (1.1-2.2); Bilirubin,Total 1.1 mg/dL (0.2-1.2); Calcium 7.7 mg/dL (8.6-10.8); Globulin 1.8 g/dL (2.4-3.5); Potassium 4.1 mEq/L (3.5-4.5); Total Protein 4.4 g/dL (6.0-8.3)
[2016-05-21 04:16] LABS: Hematocrit 21.2 % (37.5-50.1); Immature Granulocytes % 0.8 % (0-4); Immature Platelets 4.8 % (1.1-6.1); Lymphocytes # 1.3 K/mcL (0.6-4.6); Mean Corpuscular HGB Conc 35.4 g/dL (31.6-35.5); Mean Corpuscular Hemoglobin 30.7 pg (28.0-33.3); Mean Corpuscular Volume 86.9 fL (83.0-100.0); Mean Platelet Volume 9.5 fL (9.4-12.4); Monocytes # 1.3 K/mcL (0.0-1.3); Monocytes % 11.1 %; Neutrophils # 9.3 K/mcL (1.6-8.9); Red Blood Count 2.44 M/mcL (4.19-5.50); Red Cell Distribution Width 15.6 % (11.5-14.5)
[2016-05-21 04:18] LABS: Hemoglobin 7.5 g/dL (12.9-16.9); Platelet Count 73 K/mcL (140-400)
[2016-05-21] MEDS: FentaNYL (PF) 1,000 MCG in 0.9 % Sodium Chloride 80 ML IVC SCH ×3 (04:37→21:17)
[2016-05-21 04:45] LABS: Platelet Estimate Decreased (Normal)
[2016-05-21 04:47] LABS: ABG Base Excess -1.3 mEq/L (-2.0 to 3.0); ABG HCO3 22.7 mEQ/L (21-27); ABG Oxygen Saturation 88 % (95-98); ABG PCO2 35 mmHg (35-45); ABG PH 7.42 pH Units (7.32-7.45); ABG PO2 53 mmHg (85-104); ABG TCO2 23.8 mEq/L (20-26); Blood Gas VT 500 cc
[2016-05-21] MEDS: Magnesium Sulfate 2 GM in D5% in Water 100 ML IVPB PRN (05:00)
[2016-05-21] MEDS: Calcium Gluconate 1,000 MG in D5% in Water 100 ML IVPB PRN (05:00)
[2016-05-21] MEDS: *HR* Heparin 5,000 UNIT/ML VIAL SQ SCH ×4 (06:11→21:26)
--- NOTE | 2016-05-21 06:40 | Pulmonology Progress Note ---
Date of Encounter: 05/21/16 Time of Encounter: 06:40 Assessment and Plan (1) Acute respiratory failure with hypoxia Current Visit: Yes Status: Acute I spent 45 min of Critical Care time with this patient. It involved decision making of high complexity to assess, manipulate, and support vital organ system failure and/or to prevent further life threatening deterioration of the patient' s condition. The time involved in the performance of separately reportable procedures was not counted toward critical care time. Neuro: Right hemiplegia with head CT notable for a subacute left watershed distribution CVA likely s/t carotid disease with hypotension during cardiac arrest. Seen by neurology with plan for permissive hypertension. Cont sedation/ analgesia for Goal RASS (-2). Pulm: Intubated with acceptable oxygenation/ventilation (goal sat around 92%) on FIo2%=40 and PEEP =5; ETT high but acceptable; (suspect tracheal deviation ?s /t aorta aneurysm ABG reassuring. Radiographic evidence of increasing volume overload not actively diuresing for hypotension concerns. Resume weaning trials when clinically more stable. 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 Amio started for ventricular arrhythmia. Holding Plavix, and ASA for acute blood loss anemia. Cont statin. FEN-GI: PPi for GI prophy. NPO for now nutrition consult for enteral feedings. Renal: Initial NIKOLE s/t to hypotension improved now with increase in BUN/ Creatinine s/t subcapsular renal hematoma. No evidence of hydronephrosis. UOP remains acceptable. Renal following checking CPK. Benjaimn in place for strict I/ Os replace Lytes per protocol. ID: Concern for post op sepsis. WBC trending down no further fevers. Cultures pending. Repeat Sputum culture today. Cont Vanc/Pip-Tazo Heme/Onc: Acute blood loss s/t Renal hemorrhage. H/H repeated from 4-8AM this am and was stable as is HR and BP. D/w Vascular plan for conservative mngt at this time. Consider IR for emoblization if unstable. Goal hgb >9 with cardiac ischemia. Thrombcytopenia s/t to critical illness and remains stable. SCDs for DVT prophy Endo: Hyperglycemia noted cont insulin gtt for goal 140-180 Integ: skin care per ICU protocol to prevent ulcers CODE: Full. Updated the family regarding retroperitoneal bleeding and overall clinical condition. Spoke at length with family and including healthcare power of telephone station repairer his who clearly states that she wants everything they continued to be done upward to the point of the possibility of another cardiac arrest at which point she would not want to repeat ACLS CODE STATUS changed to update this. She is also expressing that with ongoing clinical complications is increasingly becoming aware to her the patient may not want to go through with continued aggressive management but she will need to speak with the rest of her family recommended palliative care consult tomorrow to continue to address goals of care. (2) NIKOLE (acute kidney injury) Current Visit: Yes Status: Acute (3) CAD (coronary artery disease) Current Visit: Yes Status: Acute Qualifiers: Coronary Disease-Associated Artery/Lesion type: unspecified vessel or lesion type [place] vs. transplanted heart: [place] heart Associated angina: without angina Qualified Code(s): I25.10 - Atherosclerotic heart disease of [place] coronary artery without angina pectoris (4) Cardiac arrest Current Visit: Yes Status: Acute (5) DVT prophylaxis Current Visit: Yes Status: Acute (6) Elevated troponin I level Current Visit: Yes Status: Acute (7) Metabolic acidosis Current Visit: Yes Status: Acute (8) Abdominal aortic aneurysm Current Visit: Yes Status: Chronic Qualifiers: Presence of rupture: without rupture Qualified Code(s): I71.4 - Abdominal aortic aneurysm, without rupture (9) Carotid artery disease Current Visit: Yes Status: Chronic Qualifiers: Laterality: bilateral Qualified Code(s): I77.9 - Disorder of arteries and arterioles, unspecified (10) HLD (hyperlipidemia) Current Visit: Yes Status: Chronic Qualifiers: Hyperlipidemia type: mixed hyperlipidemia Qualified Code(s): E78.2 - Mixed hyperlipidemia (11) HTN (hypertension) Current Visit: Yes Status: Chronic Qualifiers: Hypertension type: essential hypertension Qualified Code(s): I10 - Essential (primary) hypertension (12) PAD (peripheral artery disease) Current Visit: Yes Status: Chronic (13) Tobacco abuse Current Visit: Yes Status: Chronic (14) Retroperitoneal bleeding Current Visit: Yes Status: Acute Subjective Principal diagnosis: Cardiac arrest Interval history: BP stable off of pressors overnight drop in hgb noted remains intubated on minimal sedation Objective PUL Vital signs: Last Vital Signs Temp 98.4 F 05/21/16 00:00 Pulse 55 05/21/16 02:00 Resp 20 05/21/16 06:09 BP 131/57 05/21/16 06:09 Pulse Ox 99 05/21/16 06:09 General appearance: other (comfortable appearing on vent. ) Eyes: nonicteric ENT: other (ETT tube noted ) Effort: normal Auscultation: right: diminished breath sounds Cardiovascular: regular rate and rhythm Gastrointestinal: hypoactive bowel sounds, other (increasing abdominal firmness. No tenderness to deep palpation. no ecchymoses or bruising ) Extremities: cool, other (extremities are cool with distal pulses in LE's dopplerable. no evidence of cyanosis. Groin site b/l without evidence of hematoma. Dressing C/D/I) pupils equal and round, other (left gaze preference. right hemiplegia noted. Movement of left upper and lower ext's spontaneously. ) Ventilator Settings Ventilator Settings: Ventilator Settings, Last 8 Hours Ventilator Mode VC+ Ventilator Mode VC+ Ventilator Mode VC+ Ventilator Mode VC+ Ventilator Mode VC+ Ventilator Mode VC+ Ventilator Mode VC+ Ventilator Mode VC+ Ventilator Mode VC+ Ventilator Tidal Volume 500 Setting Ventilator Tidal Volume 500 Setting Ventilator Tidal Volume 500 Setting Ventilator Tidal Volume 500 Setting Ventilator Tidal Volume 500 Setting Ventilator Tidal Volume 500 Setting Ventilator Tidal Volume 500 Setting Ventilator Tidal Volume 500 Setting Ventilator Tidal Volume 500 Setting Ventilator Respiratory Rate 20 Setting Ventilator Respiratory Rate 20 Setting Ventilator Respiratory Rate 20 Setting Ventilator Respiratory Rate 20 Setting Ventilator Respiratory Rate 20 Setting Ventilator Respiratory Rate 20 Setting Ventilator Respiratory Rate 20 Setting Ventilator Respiratory Rate 20 Setting Ventilator Respiratory Rate 20 Setting Actual Respiratory Rate 20 Actual Respiratory Rate 20 Actual Respiratory Rate 20 Actual Respiratory Rate 20 Actual Respiratory Rate 20 Actual Respiratory Rate 25 Actual Respiratory Rate 20 Actual Respiratory Rate 20 Positive End Expiratory 5 Pressure Positive End Expiratory 5 Pressure Positive End Expiratory 5 Pressure Positive End Expiratory 5 Pressure Positive End Expiratory 5 Pressure Positive End Expiratory 5 Pressure Positive End Expiratory 5 Pressure Positive End Expiratory 5 Pressure Positive End Expiratory 5 Pressure Peak Inspiratory Airway 22 Pressure Peak Inspiratory Airway 23 Pressure Peak Inspiratory Airway 23 Pressure Peak Inspiratory Airway 22 Pressure Peak Inspiratory Airway 22 Pressure Peak Inspiratory Airway 21 Pressure Peak Inspiratory Airway 21 Pressure Peak Inspiratory Airway 22 Pressure Results - Laboratory Findings CBC and BMP: 05/21/16 07:20 05/21/16 03:40 ABG ABG pH 7.42 pH Units (7.32-7.45) 05/21/16 03:34 ABG pCO2 35 mmHg (35-45) 05/21/16 03:34 ABG pO2 53 mmHg (85-104) L 05/21/16 03:34 ABG O2 Saturation 88 % (95-98) L 05/21/16 03:34 PT/INR, D-dimer PT 15.9 Seconds (9.4-12.1) H 05/19/16 02:00 Abnormal lab findings: Abnormal lab results WBC 12.1 K/mcL (4.3-11.1) H 05/21/16 04:06 RBC 2.44 M/mcL (4.19-5.50) L 05/21/16 04:06 Hgb 7.5 g/dL (12.9-16.9) L D 05/21/16 04:06 Hct 21.2 % (37.5-50.1) L 05/21/16 04:06 RDW 15.6 % (11.5-14.5) H 05/21/16 04:06 Plt Count 73 K/mcL (140-400) L 05/21/16 04:06 Neutrophils # 9.3 K/mcL (1.6-8.9) H 05/21/16 04:06 Nucleated RBCs/100 WBC 0.1 /100 WBC (0) H 05/19/16 08:35 Platelet Estimate Decreased (Normal) L 05/21/16 04:06 PT 15.9 Seconds (9.4-12.1) H 05/19/16 02:00 APTT 110.6 Seconds (26.0-36.0) H* D 05/19/16 02:00 ABG pO2 53 mmHg (85-104) L 05/21/16 03:34 ABG O2 Saturation 88 % (95-98) L 05/21/16 03:34 ABG Hematocrit 23 % (35-51) L 05/18/16 12:03 Glucose 201 mg/dL (60-95) H 05/18/16 12:03 Lactate 7.6 mmol/L (0.7-2.1) H* 05/18/16 12:03 Sodium 130 mEq/L (136-145) L 05/21/16 03:40 Creatinine 1.68 mg/dL (0.72-1.25) H 05/21/16 03:40 Est GFR ( Amer) 49 (> 60) L 05/21/16 03:40 Est GFR (Non-Af Amer) 40 (> 60) L 05/21/16 03:40 Glucose 117 mg/dL (70-99) H 05/21/16 03:40 POC Glucose 111 (58-89) H 05/21/16 05:27 Calculated Osmolality 275 (280-300) L 05/21/16 03:40 Calcium 7.7 mg/dL (8.6-10.8) L 05/21/16 03:40 Ionized Calcium 1.07 mmol/L (1.15-1.35) L 05/21/16 03:40 AST 40 Units/L (5-34) H 05/21/16 03:40 Troponin I 9.44 ng/mL (0-0.03) H* 05/19/16 13:05 Serum Total Protein 4.4 g/dL (6.0-8.3) L 05/21/16 03:40 Albumin 2.6 g/dL (3.5-5.0) L 05/21/16 03:40 Globulin 1.8 g/dL (2.4-3.5) L 05/21/16 03:40 - Microbiology Findings Microbiology Findings: Microbiology, Last 48 Hours 05/18/16 22:56 Blood Culture - Preliminary Peripheral Venipuncture No growth. 05/18/16 22:35 Blood Culture - Preliminary Peripheral Venipuncture No growth. 05/18/16 22:18 Urine Culture - Final Urine,[place] No growth. 05/19/16 09:15 Sputum Culture - Final Sputum - Clinical Findings Intake & Output: Intake & Output 05/20/16 05/20/16 05/21/16 15:59 23:59 07:59 Intake Total 916.65 / 916.65 697.2 / 697.2 465.6 / 465.6 Output Total 450 / 450 250 / 250 200 / 200 Balance 466.65 / 466.65 447.2 / 447.2 265.6 / 265.6 Weight 87 kg - VTE Documentation of Mechanical Device: Intermittent pneumatic compression device Consult Discharge Plan - Plan Referrals: John Peace MD [Primary Care Provider] - 05/24/16 9:45 am Salvador Bosch MD [Partnered Physician] - 06/28/16 1:00 pm Prescriptions: Atorvastatin [Lipitor] 40 mg PO HS #1 tablet
[2016-05-21 07:45] LABS: INR 1.5; Prothrombin Time 16.2 Seconds (9.4-12.1)
[2016-05-21] MEDS: Pantoprazole 40 MG VIAL IVPB SCH (08:15)
[2016-05-21] MEDS: Chlorhexidine Rinse 15 ML MOUTHWASH MM SCH ×2 (08:15→20:46)
[2016-05-21] MEDS: Aspirin 81 MG TAB.CHEW PO SCH (08:15)
[2016-05-21] MEDS ORDERED: Aminoglycoside Consult 1 EACH MC ONE (08:17)
--- NOTE | 2016-05-21 08:20 | Nephrology Progress Note ---
Date of Encounter: 05/21/16 Time of Encounter: 10:00 - Assessment and Plan (1) NIKOLE (acute kidney injury) Current Visit: Yes Status: Acute Though UOP is excellent, his SCr has worsened since yesterday. I suspect a hemodynamic insult from his worsened Hgb, which has suddenly dropped. Hypocalcemia: replete [place] metabolic acidosis Anemia: suspect acute blood loss No CHARGE LPN needed at this time. Hyponatremia: limit the obligate inputs and caution with the vehicles for his various drips, some of which are mixed in hypotonic IVF. Will check U osmo, S osmo, serum uric acid. Thank you. (2) Cardiac arrest Current Visit: Yes Status: Acute (3) Metabolic acidosis Current Visit: Yes Status: Acute (4) HTN (hypertension) Current Visit: Yes Status: Chronic Qualifiers: Qualified Code(s): I10 - Essential (primary) hypertension (5) Hyponatremia Current Visit: Yes Status: Acute (6) Hypocalcemia Current Visit: Yes Status: Acute (7) Anemia Current Visit: Yes Status: Acute Qualifiers: Qualified Code(s): D64.89 - Other specified anemias Subjective Principal diagnosis: Cardiac arrest Interval history: Pt was seen and examined. Hx is limited as he remains intubated. Neurology is following the pt. I reviewed the interval notes and discussed with the ICU team. Objective - Vital Signs Vital signs: Vital Signs Temp Pulse Resp BP Pulse Ox 05/21/16 07:46 22 200/81 100 05/21/16 07:38 100.2 F H 05/21/16 07:20 90 28 178/91 92 L 05/21/16 06:09 20 131/57 99 05/21/16 06:00 77 20 135/87 100 05/21/16 05:30 98.2 F 81 20 136/59 96 05/21/16 04:00 98.2 F 68 20 131/57 99 05/21/16 03:28 20 154/68 97 05/21/16 03:00 68 20 135/52 100 05/21/16 02:00 55 20 122/48 99 05/21/16 01:38 20 119/47 98 05/21/16 01:00 58 20 119/48 97 05/21/16 00:00 98.4 F 70 25 137/61 96 05/20/16 23:32 20 129/52 98 05/20/16 23:00 70 20 130/56 98 05/20/16 22:00 109 28 161/69 100 05/20/16 21:34 21 123/52 99 05/20/16 21:00 74 20 123/51 99 05/20/16 20:33 99.4 F 05/20/16 20:00 74 20 119/50 98 05/20/16 19:42 20 124/52 98 05/20/16 19:00 76 24 165/75 99 05/20/16 18:00 65 22 111/47 98 05/20/16 17:48 20 135/60 99 05/20/16 17:00 79 22 135/60 99 05/20/16 16:00 78 22 98/53 98 05/20/16 15:38 98.6 F 05/20/16 15:22 20 135/60 98 05/20/16 15:00 76 21 93/48 99 05/20/16 14:00 78 21 113/52 98 05/20/16 13:00 79 22 119/61 97 05/20/16 12:00 64 24 114/53 93 L 05/20/16 11:54 24 114/53 98 05/20/16 11:50 98.2 F 05/20/16 11:00 68 16 119/57 100 05/20/16 10:00 77 23 89/59 95 05/20/16 09:20 23 114/53 95 05/20/16 09:00 58 22 99/52 96 Intake and Output 05/20/16 05/21/16 05/21/16 23:59 07:59 15:59 Intake Total 697.2 / 697.2 470.3 / 470.3 Output Total 250 / 250 1100 / 1100 Balance 447.2 / 447.2 -629.7 / -629.7 Intake: IV Fluids 697.2 / 697.2 470.3 / 470.3 Amiodarone 360mg/200mL 200 / 200 Drip Premix 360 mg In 200 ml @ 0.5 MG/MIN 16.667 mls/hr IVC CONT [facility] Rx#: [id number] FentaNYL (PF) 1,000 MCG 127.5 / 127.5 101.9 / 101.9 In 0.9 % Sodium Chloride 80 ML @ 50 MCG/HR 5 mls/ hr IVC CONT [facility] Rx#: [id number] HumuLIN R 100 UNIT In 0. 19.7 / 19.7 4.4 / 4.4 9 % Sodium Chloride 100 ML @ 1 UNIT/HR 1.01 mls/ hr IVC CONT [facility] Rx#: [id number] Levophed 4 MG In Dextrose 264 / 264 5% 250 ML @ 0.1 MCG/MIN 0.38 mls/hr IVC CONT [facility] Rx#:[id number] Zosyn 3.375 GM In 100 / 100 100 / 100 Dextrose 5% (Minibag+) 100 ML 100 ML @ 25 mls/hr IVPB Q8HR [facility] Rx#: [id number] Vancocin 1,250 MG In 250 / 250 Dextrose 5% 250 ML @ 166. 667 mls/hr IVPB Q24H [facility] Rx#:[id number] Oral 0 / 0 Output: Urine 325 / 325 Urethral ([place]) 325 / 325 Catheter 250 / 250 725 / 725 Gastric Drainage 50 / 50 Other: Blood Glucose* 159 116 - General Appearance Exam: General appearance: well-developed, well-nourished, appears started age, moderate distress, sedated on ventilator, intubated EENT: ATNC, mucous membranes moist Neck: supple Respiratory: course breath sounds Cardiology: edema, regular rate, regular rhythm, normal S1, normal S2 Gastrointestinal: normoactive bowel sounds, no tenderness, no guarding Integumentary: no rash, warm and dry Additional Comments: Intubated, Sedated on HD Musculoskeletal: no erythema, no cyanosis - Lab 05/22/16 12:50 05/22/16 03:40 Most recent lab results ABG pH 7.42 pH Units (7.32-7.45) 05/21/16 03:34 ABG pCO2 35 mmHg (35-45) 05/21/16 03:34 ABG pO2 53 mmHg (85-104) L 05/21/16 03:34 ABG HCO3 22.7 mEQ/L (21-27) 05/21/16 03:34 ABG O2 Saturation 88 % (95-98) L 05/21/16 03:34 Calcium 7.7 mg/dL (8.6-10.8) L 05/21/16 03:40 Phosphorus 3.4 mg/dL (2.3-4.7) 05/21/16 03:40 Magnesium 1.7 mg/dL (1.6-2.6) 05/21/16 03:40 - VTE Documentation of Mechanical Device: Intermittent pneumatic compression device Consult Discharge Plan - Plan Referrals: John Peace MD [Primary Care Provider] - 05/24/16 9:45 am Salvador Bosch MD [Partnered Physician] - 06/28/16 1:00 pm Prescriptions: RX: Atorvastatin [Lipitor] 40 mg PO HS #1 tablet
[2016-05-21 08:36] LABS: Hematocrit 21.5 % (37.5-50.1); Hemoglobin 7.4 g/dL (12.9-16.9)
--- NOTE | 2016-05-21 08:38 | Cardiology Progress Note ---
Date of Encounter: 05/21/16 Time of Encounter: 08:36 Assessment and Plan (1) CAD (coronary artery disease) Current Visit: Yes Status: Acute Patient's significant coronary artery disease as listed above, continue medical management. Qualifiers: Coronary Disease-Associated Artery/Lesion type: unspecified vessel or lesion type [place] vs. transplanted heart: [place] heart Associated angina: without angina Qualified Code(s): I25.10 - Atherosclerotic heart disease of [place] coronary artery without angina pectoris (2) Cardiac arrest Current Visit: Yes Status: Acute 05/19/2016: Patient has been seen and evaluated this am. He continues to remain intubated and sedated in the ICU. He has been weaned off vasopressor support and his metabolic acidosis is improving. Plan: - Continue stabilize patient status post cardiac arrest per pulmonary ICU team. Possible extubation today - Patient is hypotensive continue to hold antihypertensive medications including his beta [place]. - Plan to restart atorvastatin when patient is extubated and passed a swallow test. - Patient status post AAA endograft - Continue Amiodarone drip for rhythm stabilization - would continue until extubated and is otherwise stable. (3) Abdominal aortic aneurysm Current Visit: Yes Status: Chronic Per Vasular surgery - Stable so far - no acute issues. . Qualifiers: Presence of rupture: without rupture Qualified Code(s): I71.4 - Abdominal aortic aneurysm, without rupture (4) PAD (peripheral artery disease) Current Visit: Yes Status: Chronic continue supportive care. (5) NIKOLE (acute kidney injury) Current Visit: Yes Status: Acute Probably related to volume shifts, possible blood loss, and recent hemodynamics Renal on board - largely defer to them (6) CVA (cerebral vascular accident) Current Visit: Yes Status: Acute Defer to Neuro - but suspect related to hemodynamic changes with complicated surgery Qualifiers: CVA mechanism: occlusion Precerebral and cerebral artery: carotid artery Laterality of affected vessel: left Qualified Code(s): I63.232 - Cerebral infarction due to unspecified occlusion or stenosis of left carotid arteries (7) Carotid artery disease Current Visit: Yes Status: Chronic Patient has known history of carotid artery stenosis as discussed above. Qualifiers: Laterality: bilateral Qualified Code(s): I77.9 - Disorder of arteries and arterioles, unspecified (8) HTN (hypertension) Current Visit: Yes Status: Chronic Patient required pressors last night, hypertensive with agitation, normotensive better while at bedside this morning - continue supportive care. Qualifiers: Hypertension type: essential hypertension Qualified Code(s): I10 - Essential (primary) hypertension (9) Anemia Current Visit: Yes Status: Acute Blood products as needed D/w Education Spec - agree with their planned work up (Abdominal CT). No heparin at this time Would keep Hg > 8. Qualifiers: Anemia type: other cause Other causes of anemia: other cause, not classified Qualified Code(s): D64.89 - Other specified anemias Discussion w patient/family: Thank you for involving us in the care of your patient. Please call with any questions. Subjective Principal diagnosis: Cardiac arrest Interval history: Patient still intubated - on pressors for some time last night Objective Vital Signs, Last 4 Hours Temp Pulse Resp BP Pulse Ox 05/21/16 07:46 22 200/81 100 05/21/16 07:38 100.2 F H 05/21/16 07:20 90 28 178/91 92 L 05/21/16 06:09 20 131/57 99 05/21/16 06:00 77 20 135/87 100 05/21/16 05:30 98.2 F 81 20 136/59 96 General: No Apparent Distress, Other (intubated - opens eyes to voice) HEENT: Atraumatic, Normocephaly Neck: No JVD, Other (supple) Cardiac: Reg Rate and Rhythm, Other (no S3) Lungs: Other (Fair Air Movement, mechanical breath sounds) Neuro: Other (opens eyes to voice, extremities restrained) Abdomen: Non-Tender, Other (firm) Skin: No rashes noted on visualized skin Musculoskeletal: No Chest Wall Tenderness Extremities: No Edema Results 05/21/16 04:06 05/21/16 03:40 Lab Results 05/21/16 05/21/16 05/21/16 03:40 03:40 04:06 WBC 12.1 H Hgb 7.5 L D Hct 21.2 L Plt Count 73 L INR Sodium 130 L Potassium 4.1 Chloride 103 Carbon Dioxide 19 BUN 25 Creatinine 1.68 H Glucose 117 H Calcium 7.7 L Magnesium 1.7 Total Bilirubin 1.1 AST 40 H ALT 11 Alkaline Phosphatase 40 05/21/16 07:20 WBC Hgb Hct Plt Count INR 1.5 Sodium Potassium Chloride Carbon Dioxide BUN Creatinine Glucose Calcium Magnesium Total Bilirubin AST ALT Alkaline Phosphatase - Imaging and Cardiology Chest Xray: report reviewed Echo: report reviewed - VTE Documentation of Mechanical Device: Intermittent pneumatic compression device Consult Discharge Plan - Plan Referrals: John Peace MD [Primary Care Provider] - 05/24/16 9:45 am Salvador Bosch MD [Partnered Physician] - 06/28/16 1:00 pm Prescriptions: Atorvastatin [Lipitor] 40 mg PO HS #1 tablet
[2016-05-21 09:07] LABS: ABG Base Excess 0.3 mEq/L (-2.0 to 3.0); ABG Oxygen Saturation 99 % (95-98); ABG PCO2 33 mmHg (35-45); ABG PH 7.47 pH Units (7.32-7.45); ABG PO2 112 mmHg (85-104)
[2016-05-21 09:08] LABS: Blood Gas FiO2 60 %
[2016-05-21] MEDS: Amiodarone Premix 360 MG/200 ML BAG IVC SCH ×2 (09:30→21:17)
[2016-05-21] MEDS ORDERED: Albumin Human 5% 25 GM/500 ML VIAL IVPB ONE (10:30)
[2016-05-21] MEDS ORDERED: 0.9 % Sodium Chloride 250 ML ONE (11:13)
--- NOTE | 2016-05-21 12:55 | Neurology Progress Note ---
Date of Encounter: 05/21/16 Time of Encounter: 12:53 Assessment and Plan (1) CVA (cerebral vascular accident) Current Visit: Yes Status: Acute Stable and mental status improving. Still on mild sedatives and is expecting his mental status continue to improve. Treatment of CVA largely supportive at this time. Please continue medical and supportive care. PT/speech evaluation as medical conditions allow. Qualifiers: CVA mechanism: occlusion Precerebral and cerebral artery: carotid artery Laterality of affected vessel: left Qualified Code(s): I63.232 - Cerebral infarction due to unspecified occlusion or stenosis of left carotid arteries Subjective Principal diagnosis: CVA Interval history: Patient seen and examined. Patient is more alert and reactive today. 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 Has eye contact now and no longer having persistent gazing to the left side. Able to withdrawal toes on the right side but right arm still flaccid paralysed Objective - Constitutional Vitals: Temp Pulse Resp BP Pulse Ox 100.3 F H 78 23 144/69 100 05/21/16 11:55 05/21/16 11:55 05/21/16 11:55 05/21/16 11:55 05/21/16 11:55 - Neurological Exam Sensorimotor examination: Present: other (Unable to assess due to sedation and aphasia) Motor Examination: Present: other (Right arm flaccid paralysis noted. Able to wiggle right toes when stimulated. Able to squeeze hand upon request to the left side) Sensation intact: Present: other (Unable to assess due to sedation and aphasia) Posture: Present: other (Right gaze preference noted) Mental Status Examination: Present: alert, opens eyes to voice, makes eye contact, expressive aphasia Cranial nerve examination: Present: PERRL (Gaze to left side. No nystagmus), EOMI (eye movements full now. Able to gaze to right side now), visual constantino intact (Unable to assess), corneal reflexes brisk symmetrically, sensory to face intact (Unable to assess) - VTE Documentation of Mechanical Device: Intermittent pneumatic compression device Results - Laboratory Findings CBC and BMP: 05/21/16 07:20 05/21/16 03:40 Abnormal lab findings: Abnormal lab results WBC 12.1 K/mcL (4.3-11.1) H 05/21/16 04:06 RBC 2.44 M/mcL (4.19-5.50) L 05/21/16 04:06 Hgb 7.4 g/dL (12.9-16.9) L 05/21/16 07:20 Hct 21.5 % (37.5-50.1) L 05/21/16 07:20 RDW 15.6 % (11.5-14.5) H 05/21/16 04:06 Plt Count 73 K/mcL (140-400) L 05/21/16 04:06 Neutrophils # 9.3 K/mcL (1.6-8.9) H 05/21/16 04:06 Nucleated RBCs/100 WBC 0.1 /100 WBC (0) H 05/19/16 08:35 Platelet Estimate Decreased (Normal) L 05/21/16 04:06 PT 16.2 Seconds (9.4-12.1) H 05/21/16 07:20 APTT 110.6 Seconds (26.0-36.0) H* D 05/19/16 02:00 ABG pH 7.47 pH Units (7.32-7.45) H 05/21/16 08:55 ABG pCO2 33 mmHg (35-45) L 05/21/16 08:55 ABG pO2 112 mmHg (85-104) H 05/21/16 08:55 ABG O2 Saturation 99 % (95-98) H 05/21/16 08:55 ABG Hematocrit 23 % (35-51) L 05/18/16 12:03 Glucose 201 mg/dL (60-95) H 05/18/16 12:03 Lactate 7.6 mmol/L (0.7-2.1) H* 05/18/16 12:03 Sodium 130 mEq/L (136-145) L 05/21/16 03:40 Creatinine 1.68 mg/dL (0.72-1.25) H 05/21/16 03:40 Est GFR ( Amer) 49 (> 60) L 05/21/16 03:40 Est GFR (Non-Af Amer) 40 (> 60) L 05/21/16 03:40 Glucose 117 mg/dL (70-99) H 05/21/16 03:40 POC Glucose 126 (58-89) H 05/21/16 09:20 Calculated Osmolality 275 (280-300) L 05/21/16 03:40 Calcium 7.7 mg/dL (8.6-10.8) L 05/21/16 03:40 Ionized Calcium 1.07 mmol/L (1.15-1.35) L 05/21/16 03:40 AST 40 Units/L (5-34) H 05/21/16 03:40 Troponin I 9.44 ng/mL (0-0.03) H* 05/19/16 13:05 Serum Total Protein 4.4 g/dL (6.0-8.3) L 05/21/16 03:40 Albumin 2.6 g/dL (3.5-5.0) L 05/21/16 03:40 Globulin 1.8 g/dL (2.4-3.5) L 05/21/16 03:40 Consult Discharge Plan - Plan Referrals: John Peace MD [Primary Care Provider] - 05/24/16 9:45 am Salvador Bosch MD [Partnered Physician] - 06/28/16 1:00 pm Prescriptions: Atorvastatin [Lipitor] 40 mg PO HS #1 tablet
--- NOTE | 2016-05-21 12:59 | Vascular/[facility] Progress Note ---
Date of Encounter: 05/20/16 Time of Encounter: 15:00 - Assessment and plan (1) Abdominal aortic aneurysm Current Visit: Yes Status: Chronic He is postoperative day #2 after endograft repair of his aneurysm. His abdomen is soft and his incisions are healing. He is off pressors. He remains intubated. His creatinine is improving. He had right sided weakness when sedation was withdrawn. His CT revealed a subacute infarct He will remain intubated today. Qualifiers: Presence of rupture: without rupture Qualified Code(s): I71.4 - Abdominal aortic aneurysm, without rupture (2) CAD (coronary artery disease) Current Visit: Yes Status: Acute Qualifiers: Coronary Disease-Associated Artery/Lesion type: unspecified vessel or lesion type [place] vs. transplanted heart: [place] heart Associated angina: without angina Qualified Code(s): I25.10 - Atherosclerotic heart disease of [place] coronary artery without angina pectoris (3) Carotid artery disease Current Visit: Yes Status: Chronic Qualifiers: Laterality: bilateral Qualified Code(s): I77.9 - Disorder of arteries and arterioles, unspecified (4) HLD (hyperlipidemia) Current Visit: Yes Status: Chronic Qualifiers: Hyperlipidemia type: mixed hyperlipidemia Qualified Code(s): E78.2 - Mixed hyperlipidemia (5) HTN (hypertension) Current Visit: Yes Status: Chronic Qualifiers: Hypertension type: essential hypertension Qualified Code(s): I10 - Essential (primary) hypertension (6) PAD (peripheral artery disease) Current Visit: Yes Status: Chronic (7) Tobacco abuse Current Visit: Yes Status: Chronic - Subjective Interval history: Patient remains sedated and intubated. Vital Signs, Last 4 Hours Temp Pulse Resp BP Pulse Ox 05/21/16 11:55 100.3 F H 78 23 144/69 100 05/21/16 11:40 100.3 F H 65 20 116/47 100 05/21/16 11:30 65 20 115/48 100 05/21/16 10:25 70 20 105/49 100 05/21/16 09:21 20 133/53 100 05/21/16 09:15 87 20 168/75 98 - Physical Examination HEENT: Present: Pupils equal Neck: Absent: Tracheal deviation Cardiac: Present: Reg Rate and Rhythm Lungs: Present: Normal Breath Sounds Neuro: Present: Other (sedated and intubated, had right sided weakness when sedation withdrawn) Vascular: Present: Normal capillary refill, Surgical incisions (clean, dry and intact without erythema or drainage). Absent: Cyanosis Abdomen: Present: Soft. Absent: Masses - VTE Documentation of Mechanical Device: Intermittent pneumatic compression device Results 05/21/16 18:30 05/21/16 14:40 Lab Results, Last 24 hours 05/21/16 05/21/16 05/21/16 03:40 03:40 04:06 WBC 12.1 H Hgb 7.5 L D Hct 21.2 L Plt Count 73 L INR Sodium 130 L Potassium 4.1 Chloride 103 Carbon Dioxide 19 BUN 25 Creatinine 1.68 H Glucose 117 H Calcium 7.7 L Magnesium 1.7 Total Bilirubin 1.1 AST 40 H ALT 11 Alkaline Phosphatase 40 05/21/16 05/21/16 07:20 07:20 WBC Hgb 7.4 L Hct 21.5 L Plt Count INR 1.5 Sodium Potassium Chloride Carbon Dioxide BUN Creatinine Glucose Calcium Magnesium Total Bilirubin AST ALT Alkaline Phosphatase - Imaging / Other Tests CT/CTA: report reviewed Consult Discharge Plan - Plan Referrals: John Peace MD [Primary Care Provider] - 05/24/16 9:45 am Salvador Bosch MD [Partnered Physician] - 06/28/16 1:00 pm Prescriptions: Atorvastatin [Lipitor] 40 mg PO HS #1 tablet
[2016-05-21 15:03] LABS: Calcium 7.8 mg/dL (8.6-10.8); Potassium 4.2 mEq/L (3.5-4.5)
[2016-05-21] MEDS ORDERED: *HR* Dextrose 50 % in Water (Syg) 50 ML SYRINGE IVP PRN (18:44)
[2016-05-21] MEDS ORDERED: D5% in Water 1,000 ML IV PRN (18:44)
[2016-05-21] MEDS ORDERED: Dextrose Gel 15 GM PO PRN ×2 (18:44)
[2016-05-21 18:52] LABS: Hematocrit 25.8 % (37.5-50.1)
[2016-05-21 18:54] LABS: Hemoglobin 9.1 g/dL (12.9-16.9)
[2016-05-21] MEDS: Vancomycin 1,250 MG in D5% in Water 250 ML IVPB SCH (21:14)
--- NOTE | 2016-05-21 21:23 | Vascular/[facility] Progress Note ---
Date of Encounter: 05/21/16 Time of Encounter: 14:00 - Assessment and plan (1) Abdominal aortic aneurysm Current Visit: Yes Status: Chronic He is postoperative day #3 after endograft repair of his aneurysm. His hemoglobin dropped oernight. CT reveals a left renal heamtoma. He is now off anticoagulation and Aspirn. He is receiving PRBCs. Will recheck his hemoglobin after his transfusion. Continued anticoagulation may require further imaging and/or intervention. His abdomen remains soft and his incisions are healing. He remains off pressors. He remains intubated. Continue with supportive care. Qualifiers: Presence of rupture: without rupture Qualified Code(s): I71.4 - Abdominal aortic aneurysm, without rupture (2) CAD (coronary artery disease) Current Visit: Yes Status: Acute Qualifiers: Coronary Disease-Associated Artery/Lesion type: unspecified vessel or lesion type [place] vs. transplanted heart: [place] heart Associated angina: without angina Qualified Code(s): I25.10 - Atherosclerotic heart disease of [place] coronary artery without angina pectoris (3) Carotid artery disease Current Visit: Yes Status: Chronic Qualifiers: Laterality: bilateral Qualified Code(s): I77.9 - Disorder of arteries and arterioles, unspecified (4) HLD (hyperlipidemia) Current Visit: Yes Status: Chronic Qualifiers: Hyperlipidemia type: mixed hyperlipidemia Qualified Code(s): E78.2 - Mixed hyperlipidemia (5) HTN (hypertension) Current Visit: Yes Status: Chronic Qualifiers: Hypertension type: essential hypertension Qualified Code(s): I10 - Essential (primary) hypertension (6) PAD (peripheral artery disease) Current Visit: Yes Status: Chronic (7) Tobacco abuse Current Visit: Yes Status: Chronic - Subjective Interval history: Patient remains sedated and intubated. His hemoglobin dropped overnight. CT scan reveals a left renal hematoma. Vital Signs, Last 4 Hours Temp Pulse Resp BP Pulse Ox 05/21/16 20:41 27 177/71 100 05/21/16 20:36 101.6 F H 05/21/16 18:25 88 26 155/71 100 05/21/16 17:35 20 135/87 100 05/21/16 17:25 76 21 148/69 - Physical Examination HEENT: Present: Trachea midline, Pupils equal Cardiac: Present: Reg Rate and Rhythm Lungs: Present: Normal Breath Sounds Neuro: Present: Other (sedated nad intubated) Vascular: Present: Normal capillary refill, Surgical incisions (incisions clean , dry and intact without erythema or drainage, no hematoma). Absent: Cyanosis Abdomen: Present: Soft. Absent: Masses Skin: Present: No rashes noted on visualized skin - VTE Documentation of Mechanical Device: Intermittent pneumatic compression device Results 05/21/16 18:30 05/21/16 14:40 Lab Results, Last 24 hours 05/21/16 05/21/16 05/21/16 03:40 03:40 04:06 WBC 12.1 H Hgb 7.5 L D Hct 21.2 L Plt Count 73 L INR Sodium 130 L Potassium 4.1 Chloride 103 Carbon Dioxide 19 BUN 25 Creatinine 1.68 H Glucose 117 H Calcium 7.7 L Magnesium 1.7 Total Bilirubin 1.1 AST 40 H ALT 11 Alkaline Phosphatase 40 05/21/16 05/21/16 05/21/16 07:20 07:20 14:40 WBC Hgb 7.4 L Hct 21.5 L Plt Count INR 1.5 Sodium 130 L Potassium 4.2 Chloride 102 Carbon Dioxide 20 BUN 26 Creatinine 1.73 H Glucose 117 H Calcium 7.8 L Magnesium Total Bilirubin AST ALT Alkaline Phosphatase 05/21/16 18:30 WBC Hgb 9.1 L D Hct 25.8 L Plt Count INR Sodium Potassium Chloride Carbon Dioxide BUN Creatinine Glucose Calcium Magnesium Total Bilirubin AST ALT Alkaline Phosphatase - Imaging / Other Tests CT/CTA: report reviewed, image reviewed Consult Discharge Plan - Plan Referrals: John Peace MD [Primary Care Provider] - 05/24/16 9:45 am Salvador Bosch MD [Partnered Physician] - 06/28/16 1:00 pm Prescriptions: Atorvastatin [Lipitor] 40 mg PO HS #1 tablet
[2016-05-22 00:03] LABS: Hematocrit 25.4 % (37.5-50.1); Hemoglobin 8.9 g/dL (12.9-16.9)
[2016-05-22 04:01] LABS: Basophils % 0.1 %; Eosinophils % 0.3 %; Hemoglobin 8.9 g/dL (12.9-16.9); Immature Granulocytes % 0.9 % (0-4)
[2016-05-22 04:03] LABS: Hematocrit 25.1 % (37.5-50.1); Immature Platelets 6.4 % (1.1-6.1); Lymphocytes # 0.8 K/mcL (0.6-4.6); Mean Corpuscular HGB Conc 35.5 g/dL (31.6-35.5); Mean Corpuscular Hemoglobin 31.1 pg (28.0-33.3); Mean Corpuscular Volume 87.8 fL (83.0-100.0); Mean Platelet Volume 10.2 fL (9.4-12.4); Monocytes # 1.3 K/mcL (0.0-1.3); Monocytes % 11.6 %; Neutrophils # 9.2 K/mcL (1.6-8.9); Red Blood Count 2.86 M/mcL (4.19-5.50); Segmented Neutrophils % 80.1 %
[2016-05-22 04:05] LABS: Platelet Count 78 K/mcL (140-400)
[2016-05-22 04:21] LABS: Albumin 2.2 g/dL (3.5-5.0); Bilirubin,Total 1.2 mg/dL (0.2-1.2); Calcium 7.7 mg/dL (8.6-10.8); Globulin 2.2 g/dL (2.4-3.5); Phosphorous 3.4 mg/dL (2.3-4.7); Total Protein 4.4 g/dL (6.0-8.3)
[2016-05-22] MEDS: Lacri-Lube 3.5 GM TUBE BOTH EYES SCH ×6 (04:29→23:21)
[2016-05-22] MEDS: Calcium Gluconate 1,000 MG in D5% in Water 100 ML IVPB PRN (04:46)
[2016-05-22 04:56] LABS: ABG Base Excess -0.8 mEq/L (-2.0 to 3.0); ABG HCO3 22.6 mEQ/L (21-27); ABG Oxygen Saturation 97 % (95-98); ABG PCO2 31 mmHg (35-45); ABG PH 7.47 pH Units (7.32-7.45); ABG PO2 81 mmHg (85-104); ABG TCO2 23.6 mEq/L (20-26)
[2016-05-22 04:57] LABS: Blood Gas FiO2 50 %
[2016-05-22] MEDS: FentaNYL (PF) 3,000 MCG in 0.9 % Sodium Chloride 240 ML IVC SCH (06:42)
[2016-05-22 06:45] LABS: Hematocrit 25.2 % (37.5-50.1)
[2016-05-22] MEDS: *HR* Heparin 5,000 UNIT/ML VIAL SQ SCH ×3 (07:25→21:44)
--- NOTE | 2016-05-22 09:19 | Cardiology Progress Note ---
Date of Encounter: 05/22/16 Time of Encounter: 09:13 Assessment and Plan (1) Cardiac arrest Current Visit: Yes Status: Acute Intraoperative CPR (PEA, followed by VT per reports). EF 45-50%. BP marginal at times - unable to tolerate BB therapy. No significant arrhythmias while in ICU on amiodarone therpay. Recommend continue amiodarone for now. Consider transition to PO amiodarone once extubated. (2) CAD (coronary artery disease) Current Visit: Yes Status: Acute Known history of CAD, prior CABG. s/p CPA. Mild ischemic CMP - EF 45-50%. Aspirin held due to renal hematoma. BB held due to hypotension. ACEi held due to hypotension/NIKOLE. Consider statin once extubated. No new recommendations at this time. Qualifiers: Coronary Disease-Associated Artery/Lesion type: unspecified vessel or lesion type [place] vs. transplanted heart: [place] heart Associated angina: without angina Qualified Code(s): I25.10 - Atherosclerotic heart disease of [place] coronary artery without angina pectoris (3) NIKOLE (acute kidney injury) Current Visit: Yes Status: Acute NIKOLE mostly secondary to hypotension likely representing ATN. Continue supportive care and avoid nephrotoxic agents. (4) CVA (cerebral vascular accident) Current Visit: Yes Status: Acute Left watershed event described on CT likely related to CPA. Neurology following. Qualifiers: CVA mechanism: occlusion Precerebral and cerebral artery: carotid artery Laterality of affected vessel: left Qualified Code(s): I63.232 - Cerebral infarction due to unspecified occlusion or stenosis of left carotid arteries (5) Elevated troponin I level Current Visit: Yes Status: Acute Significantly elevated troponin in setting of surgery with CPA. Anemia requiring discontinuation of aspirin and heparin gtt. CVA and NIKOLE also noted. Medical therapy recommended last week - not an ideal candidate for C. EF mildly reduced, 45-50%. Continue to monitor cardiac status. (6) Abdominal aortic aneurysm Current Visit: Yes Status: Chronic Vascular surgery following. Qualifiers: Presence of rupture: without rupture Qualified Code(s): I71.4 - Abdominal aortic aneurysm, without rupture Discussion w patient/family: The assessment and plan as outlined above was discussed with the patient and/or family members who expressed understanding and agreement. All questions were answered. Thank you for involving us in the care of your patient. Please call with any questions. Subjective Principal diagnosis: Cardiac arrest Interval history: Patient seen and examined. This is my first encounter with patient. Remains sedated/intubated in ICU. Events of last week noted: POD #3 endovascular AAA repair. CPA during procedure - reportedly started as PEA. Known history of CAD, prior CABG. Medical therapy has been recommended. Hemodynamics appears stable this morning. Hypotensive 70s systolic overnight. EF 45% per reports. Labs reviewed. Hg reduced compared to 05/20, but stable from yesterday. Hyponatremia, worsening NIKOLE, low albumin noted. Initial lactic acidosis resolved. Objective Vital Signs, Last 4 Hours Temp Pulse Resp BP Pulse Ox 05/22/16 07:38 20 76/40 98 05/22/16 07:20 99.7 F H 05/22/16 07:00 66 20 107/43 99 05/22/16 06:00 71 20 138/54 99 General: Other (Sedated, intubated. Appears comfortable. ) HEENT: Atraumatic, Normocephaly, Mucus Membranes Moist Neck: No JVD, Normal carotid pulses Cardiac: Reg Rate and Rhythm, Other (No significant murmurs appreciated. ) Lungs: Normal Breath Sounds, Other (Few rhonchi. ) Neuro: Other (Sedated. ) Abdomen: Soft, Non-Tender Skin: No rashes noted on visualized skin Musculoskeletal: No Chest Wall Tenderness Extremities: No Clubbing, No Cyanosis, No Edema Results 05/22/16 06:35 05/22/16 03:40 Lab Results 05/21/16 05/21/16 05/21/16 14:40 18:30 23:50 WBC Hgb 9.1 L D 8.9 L Hct 25.8 L 25.4 L Plt Count Sodium 130 L Potassium 4.2 Chloride 102 Carbon Dioxide 20 BUN 26 Creatinine 1.73 H Glucose 117 H Calcium 7.8 L Magnesium Total Bilirubin AST ALT Alkaline Phosphatase 05/22/16 05/22/16 05/22/16 03:40 03:40 06:35 WBC 11.5 H Hgb 8.9 L 9.0 L Hct 25.1 L 25.2 L Plt Count 78 L Sodium 128 L Potassium 4.0 Chloride 101 Carbon Dioxide 20 BUN 27 H Creatinine 1.95 H Glucose 119 H Calcium 7.7 L Magnesium 2.0 Total Bilirubin 1.2 AST 35 H ALT 12 Alkaline Phosphatase 63 - Imaging and Cardiology Chest Xray: report reviewed Echo: report reviewed Other Results: CT - Left watershed infarct. - VTE Documentation of Mechanical Device: Intermittent pneumatic compression device Consult Discharge Plan - Plan Referrals: John Peace MD [Primary Care Provider] - 05/24/16 9:45 am Salvador Bosch MD [Partnered Physician] - 06/28/16 1:00 pm Prescriptions: Atorvastatin [Lipitor] 40 mg PO HS #1 tablet
[2016-05-22] MEDS: Piperacillin/Tazobactam 3.375 GM in D5% in Water (Mini-Bag+) 100 ML IVPB SCH (10:40)
[2016-05-22] MEDS: Chlorhexidine Rinse 15 ML MOUTHWASH MM SCH ×2 (10:47→21:43)
[2016-05-22] MEDS: Amiodarone Premix 360 MG/200 ML BAG IVC SCH ×3 (10:47→23:27)
[2016-05-22] MEDS: Pantoprazole 40 MG VIAL IVPB SCH (10:47)
--- NOTE | 2016-05-22 12:44 | Nephrology Progress Note ---
Date of Encounter: 05/22/16 Time of Encounter: 10:00 - Assessment and Plan (1) NIKOLE (acute kidney injury) Current Visit: Yes Status: Acute Nonoliguric acute kidney injury in the setting of hypotension requiring vasopressors, acute blood loss anemia, and now mild volume overload as evident by chest x-ray and physical exam. NIKOLE workup including urine osmolality, urine sodium, serum osmolality, urinalysis, serum uric acid, a.m. cortisol, and TSH have been ordered. Attempt a net zero balance for intake and output. Continue to follow a renal protective strategy and dose any medications accordingly. Vancomycin and Zosyn have been discontinued which should prevent any further antibiotic induced damage. If patient's serum creatinine should increase overnight we will order a dedicated renal ultrasound to evaluate the left renal hematoma and its possible extrinsic compression on the kidney. 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 (acidosis, electrolyte imbalances, significant volume overload, uremia) (2) Hyponatremia Current Visit: Yes Status: Acute Patient appears to be hypervolemic hyponatremia. Chest x-ray with developing vascular congestion and new pleural effusion. Urine osmolality, urine sodium, serum osmolality, a.m. cortisol ordered. Continue to monitor patient's volume status closely. Consider diuretic in the setting of volume overload. (3) Renal hematoma Current Visit: Yes Status: Acute CT abdomen and pelvis without contrast reveals an acute large left renal subcapsular hematoma measuring 4.5 cm in thickness and extending along the entire length of the kidney with parenchymal deformation. Mild free left pararenal retroperitoneal hemorrhage. Vascular surgery following. Recommended conservative management at this time. Anticoagulation has been reduced to subcutaneous heparin. If patient continues to have drop in hemoglobin, recommendation would be to contact interventional radiology for possible embolization of any bleeding vessels. If continued increase in serum creatinine, we will order renal ultrasound to evaluate hematoma. Qualifiers: Encounter type: subsequent encounter Laterality: left Qualified Code(s): S37.012D - Minor contusion of left kidney, subsequent encounter (4) Acute blood loss anemia Current Visit: Yes Status: Acute In the setting of a large left renal subcapsular hematoma, pararenal retroperitoneal hemorrhage, left pelvic retroperitoneal hematoma, and bilateral diffuse pelvic and proximal thigh hemorrhage. Total of 7 units packed red blood cells have been transfuse at this time. Patient has been weaned off vasopressors. Continue to monitor closely and consider IR consultation if continued drop in hemoglobin. (5) Cardiac arrest Current Visit: Yes Status: Acute Intraoperative cardiac arrest during endovascular AAA repair. Initial rhythm PDA followed by ventricular tachycardia. Transthoracic echocardiogram with left ventricular ejection fraction 45-50%. Remains on IV amiodarone. Cardiology following. (6) Abdominal aortic aneurysm Current Visit: Yes Status: Chronic Postoperative day #4 status post EVAR. Has been weaned off vasopressors. Anticoagulation has been held due to acute blood loss anemia in the setting of left renal hematoma. Vascular surgery following. Qualifiers: Presence of rupture: without rupture Qualified Code(s): I71.4 - Abdominal aortic aneurysm, without rupture (7) CVA (cerebral vascular accident) Current Visit: Yes Status: Acute Head CT notable for subacute watershed distribution CVA likely due to carotid disease with hypotension during to cardiac arrest. 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 New small complex mass in the lower left kidney concerning for a second neoplasm. Consider interventional radiology consultation if patient's hemoglobin continues to drop, as bleeding may be coming directly from renal mass. (9) CAD (coronary artery disease) Current Visit: Yes Status: Chronic Patient with a known history of coronary artery disease, prior CABG. Aspirin held due to renal hematoma. [place] held due to hypotension. ANDREA inhibitor held due to hypotension/acute kidney injury. Cardiology following. Qualifiers: Coronary Disease-Associated Artery/Lesion type: unspecified vessel or lesion type [place] vs. transplanted heart: [place] heart Associated angina: without angina Qualified Code(s): I25.10 - Atherosclerotic heart disease of [place] coronary artery without angina pectoris Subjective Principal diagnosis: Cardiac arrest Interval history: Patient seen and examined at the bedside. Patient has been weaned off vasopressors in the last 24 hours. Remains intubated and sedated although is awake on the ventilator. POD#3 endovascular AAA repair. Objective - Vital Signs Vital signs: Vital Signs Temp Pulse Resp BP Pulse Ox 05/22/16 12:00 87 23 155/59 96 05/22/16 11:43 100.3 F H 05/22/16 11:09 71 05/22/16 11:00 71 20 116/48 98 05/22/16 10:00 68 20 110/43 98 05/22/16 09:30 84 22 120/67 05/22/16 08:15 73 20 113/48 100 05/22/16 07:38 20 76/40 98 05/22/16 07:20 99.7 F H 05/22/16 07:00 66 20 107/43 99 05/22/16 06:00 71 20 138/54 99 05/22/16 05:00 64 20 110/45 100 05/22/16 04:42 100 F H 05/22/16 04:11 24 119/52 99 05/22/16 04:00 79 24 127/55 99 05/22/16 03:30 79 17 126/52 98 05/22/16 02:31 20 121/51 100 05/22/16 02:00 64 20 114/50 99 05/22/16 01:00 75 20 122/52 100 05/22/16 00:30 20 143/60 98 05/22/16 00:02 99.5 F 05/22/16 00:00 90 20 164/70 97 05/21/16 23:00 79 20 150/64 99 05/21/16 22:24 20 107/48 97 05/21/16 22:00 78 20 114/52 97 05/21/16 21:00 81 20 137/55 100 05/21/16 20:41 27 177/71 100 05/21/16 20:36 101.6 F H 05/21/16 20:00 86 20 153/61 100 05/21/16 19:25 72 20 105/44 100 05/21/16 18:25 88 26 155/71 100 05/21/16 17:35 20 135/87 100 05/21/16 17:25 76 21 148/69 05/21/16 16:32 32 135/87 100 05/21/16 16:20 81 22 122/48 05/21/16 15:45 100 F H 95 24 133/69 99 05/21/16 15:30 99.0 F 05/21/16 14:44 20 111/46 100 05/21/16 14:11 100.4 F H 63 20 112/45 100 05/21/16 13:56 100.4 F H 66 20 111/56 99 05/21/16 13:52 100.4 F H 64 21 109/59 100 05/21/16 12:47 20 119/47 100 Intake and Output 05/21/16 05/22/16 05/22/16 23:59 07:59 15:59 Intake Total 744 / 744 210 / 210 225.9 / 225.9 Output Total 100 / 100 450 / 450 Balance 644 / 644 -240 / -240 225.9 / 225.9 Intake: IV Fluids 744 / 744 210 / 210 225.9 / 225.9 Amiodarone 360mg/200mL 200 / 200 200 / 200 Drip Premix 360 mg In 200 ml @ 0.5 MG/MIN 16.667 mls/hr IVC CONT ROLANDA Rx#: [id number] FentaNYL (PF) 1,000 MCG 100 / 100 In 0.9 % Sodium Chloride 80 ML @ 50 MCG/HR 5 mls/ hr IVC CONT ROLANDA Rx#: [id number] Versed 50 MG In 0.9 % 94 / 94 25.9 / 25.9 Sodium Chloride 90 ML @ 2 MG/HR 4 mls/hr IVC CONT ROLANDA Rx#:[id number] Calcium Gluconate 1,000 110 / 110 MG In Dextrose 5% 100 ML @ 50 mls/hr IVPB Q6HR PRN Rx#:[id number] Zosyn 3.375 GM In 100 / 100 100 / 100 Dextrose 5% (Minibag+) 100 ML 100 ML @ 25 mls/hr IVPB Q8HR ROLANDA Rx#: [id number] Vancocin 1,250 MG In 250 / 250 Dextrose 5% 250 ML @ 166. 667 mls/hr IVPB Q24H ROLANDA Rx#:[id number] Output: Catheter 100 / 100 450 / 450 Other: Blood Glucose* 95 84 75 - General Appearance Exam: General: Patient is intubated and sedated HEENT: Normocephalic atraumatic, pupils are equal round and reactive to light and accommodation, tympanic membrane is intact, nares is patent, mucous membranes moist, throat is not injected, no JVD, trachea is midline Cardiovascular: Regular rate and rhythm without murmur Respiratory: Lungs with trace rhonchi noted throughout Abdomen: Soft, nondistended, positive bowel sounds in all 4 quadrants Extremities: Warm, dry, no edema Neuro: Intubated and sedated - Lab 05/22/16 06:35 05/22/16 03:40 Most recent lab results ABG pH 7.47 pH Units (7.32-7.45) H 05/22/16 04:42 ABG pCO2 31 mmHg (35-45) L 05/22/16 04:42 ABG pO2 81 mmHg (85-104) L 05/22/16 04:42 ABG HCO3 22.6 mEQ/L (21-27) 05/22/16 04:42 ABG O2 Saturation 97 % (95-98) 05/22/16 04:42 Calcium 7.7 mg/dL (8.6-10.8) L 05/22/16 03:40 Phosphorus 3.4 mg/dL (2.3-4.7) 05/22/16 03:40 Magnesium 2.0 mg/dL (1.6-2.6) 05/22/16 03:40 - VTE Documentation of Mechanical Device: Intermittent pneumatic compression device Consult Discharge Plan - Plan Referrals: John Peace MD [Primary Care Provider] - 05/24/16 9:45 am Salvador Bosch MD [Partnered Physician] - 06/28/16 1:00 pm Prescriptions: Atorvastatin [Lipitor] 40 mg PO HS #1 tablet
[2016-05-22 12:59] LABS: Hematocrit 24.4 % (37.5-50.1); Hemoglobin 8.6 g/dL (12.9-16.9)
[2016-05-22 13:00] LABS: Bilirubin,Urine Negative (Negative); Blood,Urine Large (Negative); Clarity,Urine Turbid (Clear); Color,Urine Yellow (Yellow); Glucose,Urine (UA) Normal (Normal); Ketones,Urine Negative (Negative); Leukocyte Esterase,Urine Negative (Negative); Nitrite,Urine Negative (Negative); PH,Urine 5.5 pH Units (5.0-8.0); Protein,Urine 100 mg/dL (Neg-Trace); Urobilinogen,Urine Normal (Normal)
[2016-05-22 13:03] LABS: Hyaline Casts,Urine None Seen per lpf (None-Few)
[2016-05-22 13:12] LABS: Uric Acid 4.9 mg/dL (3.5-7.2)
[2016-05-22 13:17] LABS: Amorphous Sediment,Urine Few (Few); Bacteria,Urine Many per hpf (None-Few); Squamous Epithelial Cell,Urine Few per lpf (None-Few); WBC,Urine 0-3 per hpf (0-3)
[2016-05-22 13:32] LABS: Thyroid Stimulating Hormone 1.95 mcIU/mL (0.350-4.840)
--- NOTE | 2016-05-22 14:35 | Event Note ---
Date of Encounter: 05/22/16 Time of Encounter: 14:31 The patient was seen and examined with the house staff. Care discussed on multidisciplinary rounds. Full resident note is pending. 1. Acute respiratory failure with hypoxia 2. Cardiac arrest 3. Shock 4. Acute CVA 5. Anemia due to acute blood loss 6. Acute renal failure 7. Elevated troponin 75-year-old white male with a medical history significant for coronary artery disease, peripheral vascular disease who presents with a cardiac arrest intraoperatively during an endograft repair of an abdominal aortic aneurysm. We will continue to wean FiO2 with likely spontaneous breathing trials beginning tomorrow. We will wean sedation today. His shock appears to be resolving, and he is off vasopressors. Acute CVA with right-sided deficits. Continue supportive measures and avoid hypotension. Acute blood loss anemia related to left renal subscapular hematoma. We will continue to trend hemoglobin and transfuse for hemoglobin less than 7 or signs of acute bleeding. Acute renal failure is multifactorial and due to ATN/hypoperfusion and hematoma. Continue to trend urine output and Chem-7. Total Direct critical care time: 35 minutes
--- NOTE | 2016-05-22 16:51 | Pulmonology Progress Note ---
Date of Encounter: 05/22/16 Time of Encounter: 08:00 Assessment and Plan (1) Acute respiratory failure with hypoxia Current Visit: Yes Status: Acute Continue to wean FiO2 with spontaneous breathing trials to begin tomorrow. Wean sedation today. (2) Cardiac arrest Current Visit: Yes Status: Acute Status post cardiac arrest that occurred intraoperatively during endograft repair for abdominal aortic aneurysm. Goal map greater than 65. Continue amiodarone due to V. fib. Vitals stable. Continuous cardiac monitoring. Coronary artery disease and prior CABG. (3) Shock circulatory Current Visit: Yes Status: Acute Secondary to cardiac arrest Resolving patient is now off vasopressors. Continue to monitor. (4) NIKOLE (acute kidney injury) Current Visit: Yes Status: Acute Subcapsular renal hematoma. No evidence of hydronephrosis. Renal following. Hold ASA due to renal hematoma. Hold beta lake due to hypotension. Hold ANDREA inhibitor due to hypotension/acute kidney injury. (5) Acute blood loss anemia Current Visit: Yes Status: Acute Hold aspirin and Plavix for acute blood loss anemia. Will continue subcutaneous heparin for prophylaxis DVT. (6) CVA (cerebral vascular accident) Current Visit: Yes Status: Acute Left upper extremity hemiplegia. Head CT demonstrates subacute left watershed distribution CVA. Contributing factors include carotid disease and hypotension during cardiac arrest. Neurology plans for permissive hypertension. Goal RAAS -2. Qualifiers: CVA mechanism: occlusion Precerebral and cerebral artery: carotid artery Laterality of affected vessel: left Qualified Code(s): I63.232 - Cerebral infarction due to unspecified occlusion or stenosis of left carotid arteries (7) Elevated troponin I level Current Visit: Yes Status: Acute (8) DVT prophylaxis Current Visit: Yes Status: Acute (9) Abdominal aortic aneurysm Current Visit: Yes Status: Chronic Qualifiers: Presence of rupture: without rupture Qualified Code(s): I71.4 - Abdominal aortic aneurysm, without rupture (10) Carotid artery disease Current Visit: Yes Status: Chronic Qualifiers: Laterality: bilateral Qualified Code(s): I77.9 - Disorder of arteries and arterioles, unspecified (11) HLD (hyperlipidemia) Current Visit: Yes Status: Chronic Qualifiers: Hyperlipidemia type: mixed hyperlipidemia Qualified Code(s): E78.2 - Mixed hyperlipidemia (12) PAD (peripheral artery disease) Current Visit: Yes Status: Chronic (13) Tobacco abuse Current Visit: Yes Status: Chronic Subjective Principal diagnosis: Acute respiratory failure with hypoxia Interval history: Patient is day 4 status post cardiac arrest that occurred intraoperatively during endograft repair of an abdominal aortic aneurysm. Patient has a past medical history significant for coronary artery disease, peripheral vascular disease Patient is intubated and sedated. He is arousable and responds to voice commands. We will plan to stop Versed due to long-term residual effects and transition to propofol in order to plan for breathing trials and possible extubation tomorrow. Overnight the patient's hemoglobin was noted to drop from 11 to a 7.5. 2 units of packed red blood cells were placed on hold but they were not given as a repeat hemoglobin/hematocrit at 8:00 was stable and subsequently hemoglobin and hematocrit done at 1250 showed improvement up to 8.6. Patient has suffered acute blood loss anemia will continue to trend hemoglobin and hematocrit and plan to transfuse if less than 7 or signs of acute bleeding. A left renal subscapular hematoma was noted and is stable. Acute CVA with left sided deficits. Will continue supportive measures to avoid hypotension. Patient is actively moving his right upper extremity, right lower extremity and left lower extremity however his left upper extremity patient is unable to squeeze my hand or wiggle his fingers on verbal command. Objective PUL Vital signs: Last Vital Signs Temp 99.3 F 05/22/16 15:13 Pulse 73 05/22/16 16:00 Resp 31 05/22/16 16:00 BP 135/48 05/22/16 16:00 Pulse Ox 98 05/22/16 16:00 General appearance: no acute distress Eyes: nonicteric ENT: oropharynx moist Neck: supple Effort: normal Auscultation: bilateral: clear Cardiovascular: regular rate and rhythm Gastrointestinal: normoactive bowel sounds, non-distended Integumentary: normal Extremities: no cyanosis, no edema, no clubbing, pink and warm, pulses normal Musculoskeletal: no deformities, ROM normal normal mental status (Intubated and sedated), pupils equal and round, other ( Left upper extremity hemiplegia. Patient is verbally arousable and following commands. Patient is able to move right upper and lower extremities withdrawing to Babinski bilaterally. Left upper extremity patient is unable to squeeze hand on command or move upper extremity.) mood appropriate, affect normal Ventilator Settings Ventilator Settings: Ventilator Settings, Last 8 Hours Ventilator Mode VC+ Ventilator Mode VC+ Ventilator Mode VC+ Ventilator Mode VC+ Ventilator Mode VC+ Ventilator Mode VC+ Ventilator Mode VC+ Ventilator Mode VC+ Ventilator Mode VC+ Ventilator Mode VC+ Ventilator Tidal Volume 500 Setting Ventilator Tidal Volume 500 Setting Ventilator Tidal Volume 500 Setting Ventilator Tidal Volume 500 Setting Ventilator Tidal Volume 500 Setting Ventilator Tidal Volume 500 Setting Ventilator Tidal Volume 500 Setting Ventilator Tidal Volume 500 Setting Ventilator Tidal Volume 500 Setting Ventilator Tidal Volume 500 Setting Ventilator Respiratory Rate 20 Setting Ventilator Respiratory Rate 20 Setting Ventilator Respiratory Rate 20 Setting Ventilator Respiratory Rate 20 Setting Ventilator Respiratory Rate 20 Setting Ventilator Respiratory Rate 20 Setting Ventilator Respiratory Rate 20 Setting Ventilator Respiratory Rate 20 Setting Ventilator Respiratory Rate 20 Setting Ventilator Respiratory Rate 20 Setting Actual Respiratory Rate 22 Actual Respiratory Rate 20 Actual Respiratory Rate 21 Actual Respiratory Rate 20 Actual Respiratory Rate 20 Actual Respiratory Rate 20 Actual Respiratory Rate 23 Actual Respiratory Rate 20 Actual Respiratory Rate 20 Actual Respiratory Rate 20 Positive End Expiratory 5 Pressure Positive End Expiratory 5 Pressure Positive End Expiratory 5 Pressure Positive End Expiratory 5 Pressure Positive End Expiratory 5 Pressure Positive End Expiratory 5 Pressure Positive End Expiratory 5 Pressure Positive End Expiratory 5 Pressure Positive End Expiratory 5 Pressure Positive End Expiratory 5 Pressure Peak Inspiratory Airway 23 Pressure Peak Inspiratory Airway 22 Pressure Peak Inspiratory Airway 23 Pressure Peak Inspiratory Airway 23 Pressure Peak Inspiratory Airway 24 Pressure Peak Inspiratory Airway 23 Pressure Peak Inspiratory Airway 23 Pressure Peak Inspiratory Airway 23 Pressure Peak Inspiratory Airway 23 Pressure Peak Inspiratory Airway 23 Pressure Results - Laboratory Findings CBC and BMP: 05/22/16 12:50 05/22/16 03:40 ABG ABG pH 7.47 pH Units (7.32-7.45) H 05/22/16 04:42 ABG pCO2 31 mmHg (35-45) L 05/22/16 04:42 ABG pO2 81 mmHg (85-104) L 05/22/16 04:42 ABG O2 Saturation 97 % (95-98) 05/22/16 04:42 PT/INR, D-dimer PT 16.2 Seconds (9.4-12.1) H 05/21/16 07:20 Abnormal lab findings: Abnormal lab results WBC 11.5 K/mcL (4.3-11.1) H 05/22/16 03:40 RBC 2.86 M/mcL (4.19-5.50) L 05/22/16 03:40 Hgb 8.6 g/dL (12.9-16.9) L 05/22/16 12:50 Hct 24.4 % (37.5-50.1) L 05/22/16 12:50 RDW 15.0 % (11.5-14.5) H 05/22/16 03:40 Plt Count 78 K/mcL (140-400) L 05/22/16 03:40 Neutrophils # 9.2 K/mcL (1.6-8.9) H 05/22/16 03:40 Nucleated RBCs/100 WBC 0.1 /100 WBC (0) H 05/19/16 08:35 Platelet Estimate Decreased (Normal) L 05/21/16 04:06 Immature Plt Fraction 6.4 % (1.1-6.1) H 05/22/16 03:40 PT 16.2 Seconds (9.4-12.1) H 05/21/16 07:20 APTT 110.6 Seconds (26.0-36.0) H* D 05/19/16 02:00 ABG pH 7.47 pH Units (7.32-7.45) H 05/22/16 04:42 ABG pCO2 31 mmHg (35-45) L 05/22/16 04:42 ABG pO2 81 mmHg (85-104) L 05/22/16 04:42 ABG Hematocrit 23 % (35-51) L 05/18/16 12:03 Glucose 201 mg/dL (60-95) H 05/18/16 12:03 Lactate 7.6 mmol/L (0.7-2.1) H* 05/18/16 12:03 Sodium 128 mEq/L (136-145) L 05/22/16 03:40 BUN 27 mg/dL (8-26) H 05/22/16 03:40 Creatinine 1.95 mg/dL (0.72-1.25) H 05/22/16 03:40 Est GFR ( Amer) 41 (> 60) L 05/22/16 03:40 Est GFR (Non-Af Amer) 34 (> 60) L 05/22/16 03:40 Glucose 119 mg/dL (70-99) H 05/22/16 03:40 Serum Osmolality 274 mOsm/kg (280-300) L 05/22/16 12:50 Calculated Osmolality 272 (280-300) L 05/22/16 03:40 Calcium 7.7 mg/dL (8.6-10.8) L 05/22/16 03:40 Ionized Calcium 1.07 mmol/L (1.15-1.35) L 05/22/16 03:40 AST 35 Units/L (5-34) H 05/22/16 03:40 Creatine Kinase 491 Units/L (30-200) H 05/21/16 14:40 Troponin I 9.44 ng/mL (0-0.03) H* 05/19/16 13:05 Serum Total Protein 4.4 g/dL (6.0-8.3) L 05/22/16 03:40 Albumin 2.2 g/dL (3.5-5.0) L 05/22/16 03:40 Globulin 2.2 g/dL (2.4-3.5) L 05/22/16 03:40 Albumin/Globulin Ratio 1.0 (1.1-2.2) L 05/22/16 03:40 Urine Clarity Turbid (Clear) A 05/22/16 12:50 Urine Protein 100 mg/dL (Neg-Trace) H 05/22/16 12:50 Urine Blood Large (Negative) H 05/22/16 12:50 Urine Microscopic RBC 5-15 per hpf (0-3) H 05/22/16 12:50 Urine Bacteria Many per hpf (None-Few) H 05/22/16 12:50 - Microbiology Findings Microbiology Findings: Microbiology, Last 48 Hours 05/21/16 09:30 Sputum Culture - Preliminary Sputum - Clinical Findings Intake & Output: Intake & Output 05/22/16 05/22/16 05/22/16 07:59 15:59 23:59 Intake Total 210 / 210 231.9 / 231.9 Output Total 450 / 450 Balance -240 / -240 231.9 / 231.9 - VTE Documentation of Mechanical Device: Intermittent pneumatic compression device Consult Discharge Plan - Plan Referrals: John Peace MD [Primary Care Provider] - 05/24/16 9:45 am Salvador Bosch MD [Partnered Physician] - 06/28/16 1:00 pm Prescriptions: Atorvastatin [Lipitor] 40 mg PO HS #1 tablet
[2016-05-22 18:24] LABS: Hematocrit 23.5 % (37.5-50.1); Hemoglobin 8.4 g/dL (12.9-16.9)
[2016-05-22 18:40] LABS: Calcium 7.8 mg/dL (8.6-10.8); Magnesium 1.9 mg/dL (1.6-2.6); Phosphorous 3.1 mg/dL (2.3-4.7); Potassium 3.9 mEq/L (3.5-4.5)
[2016-05-22] MEDS: Norepinephrine 4 MG in D5% in Water 250 ML IVC SCH ×2 (21:38→21:39)
[2016-05-22 23:41] LABS: Hematocrit 25.2 % (37.5-50.1)
[2016-05-23] MEDS: Lacri-Lube 3.5 GM TUBE BOTH EYES SCH ×5 (04:25→20:35)
[2016-05-23] MEDS: FentaNYL (PF) 3,000 MCG in 0.9 % Sodium Chloride 240 ML IVC SCH (04:26)
[2016-05-23 04:38] LABS: Ionized Calcium 0.77 mmol/L (1.15-1.35)
[2016-05-23 04:47] LABS: ABG Base Excess 0.4 mEq/L (-2.0 to 3.0); ABG HCO3 24.2 mEQ/L (21-27); ABG Oxygen Saturation 98 % (95-98); ABG PCO2 34 mmHg (35-45); ABG PH 7.46 pH Units (7.32-7.45); ABG PO2 93 mmHg (85-104); ABG TCO2 25.2 mEq/L (20-26)
[2016-05-23 04:48] LABS: Blood Gas FiO2 40 %
[2016-05-23 04:49] LABS: Albumin/Globulin Ratio 0.7 (1.1-2.2); Calcium 7.8 mg/dL (8.6-10.8); Globulin 2.6 g/dL (2.4-3.5); Phosphorous 3.4 mg/dL (2.3-4.7); Potassium 3.8 mEq/L (3.5-4.5); Total Protein 4.5 g/dL (6.0-8.3)
[2016-05-23 04:53] LABS: Albumin 1.9 g/dL (3.5-5.0)
[2016-05-23] MEDS: *HR* Heparin 5,000 UNIT/ML VIAL SQ SCH ×3 (06:33→21:33)
[2016-05-23] MEDS: Calcium Gluconate 1,000 MG in D5% in Water 100 ML IVPB PRN (06:38)
[2016-05-23] MEDS ORDERED: Acetaminophen IV 500 MG/50 ML INFUS..BTL IVPB ONE (07:48)
--- NOTE | 2016-05-23 09:08 | Nephrology Progress Note ---
Date of Encounter: 05/23/16 Time of Encounter: 06:30 - Assessment and Plan (1) NIKOLE (acute kidney injury) Current Visit: Yes Status: Acute Nonoliguric acute kidney injury in the setting of hypotension requiring vasopressors, acute blood loss anemia, and now mild volume overload as evident by chest x-ray and physical exam. Attempt a net zero balance for intake and output. Continue to follow a renal protective strategy and dose any medications accordingly. Vancomycin and Zosyn have been discontinued which should prevent any further antibiotic induced damage. No renal replacement therapy needed at this time, patient remains with good urinary output, and no acute indications for [employer]. (acidosis, electrolyte imbalances, significant volume overload, uremia) (2) Hyponatremia Current Visit: Yes Status: Acute Patient appears to be hypervolemic hyponatremia. Serum osmolality 274. Urine osmolality 422. Urine sodium 50. Chest x-ray with developing vascular congestion and new pleural effusion. Continue to monitor patient's volume status closely. Consider diuretic in the setting of volume overload. (3) Renal hematoma Current Visit: Yes Status: Acute CT abdomen and pelvis without contrast reveals an acute large left renal subcapsular hematoma measuring 4.5 cm in thickness and extending along the entire length of the kidney with parenchymal deformation. Mild free left pararenal retroperitoneal hemorrhage. Vascular surgery following. Recommended conservative management at this time. Anticoagulation has been reduced to subcutaneous heparin. If patient continues to have drop in hemoglobin, recommendation would be to contact interventional radiology for possible embolization of any bleeding vessels. If continued increase in serum creatinine, we will order renal ultrasound to evaluate hematoma. Qualifiers: Encounter type: subsequent encounter Laterality: left Qualified Code(s): S37.012D - Minor contusion of left kidney, subsequent encounter (4) Acute blood loss anemia Current Visit: Yes Status: Acute In the setting of a large left renal subcapsular hematoma, pararenal retroperitoneal hemorrhage, left pelvic retroperitoneal hematoma, and bilateral diffuse pelvic and proximal thigh hemorrhage. Total of 7 units packed red blood cells have been transfuse at this time. Patient has been weaned off vasopressors. Continue to monitor closely and consider IR consultation if continued drop in hemoglobin. (5) Cardiac arrest Current Visit: Yes Status: Acute Intraoperative cardiac arrest during endovascular AAA repair. Initial rhythm PEA followed by ventricular tachycardia. Transthoracic echocardiogram with left ventricular ejection fraction 45-50%. Remains on IV amiodarone. Cardiology following. (6) Abdominal aortic aneurysm Current Visit: Yes Status: Chronic Postoperative day #5 status post EVAR. Has been weaned off vasopressors. Anticoagulation has been held due to acute blood loss anemia in the setting of left renal hematoma. Vascular surgery following. Qualifiers: Presence of rupture: without rupture Qualified Code(s): I71.4 - Abdominal aortic aneurysm, without rupture (7) CVA (cerebral vascular accident) Current Visit: Yes Status: Acute Head CT notable for subacute watershed distribution CVA likely due to carotid disease with hypotension during to cardiac arrest. Neurology following. 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 New small complex mass in the lower left kidney concerning for a second neoplasm. Consider interventional radiology consultation if patient's hemoglobin continues to drop, as bleeding may be coming directly from renal mass. (9) CAD (coronary artery disease) Current Visit: Yes Status: Chronic Patient with a known history of coronary artery disease, prior CABG. Aspirin held due to renal hematoma. Beta lake held due to hypotension. ANDREA inhibitor held due to hypotension/acute kidney injury. Cardiology following. Qualifiers: Coronary Disease-Associated Artery/Lesion type: unspecified vessel or lesion type [place] vs. transplanted heart: [place] heart Associated angina: without angina Qualified Code(s): I25.10 - Atherosclerotic heart disease of [place] coronary artery without angina pectoris Subjective Principal diagnosis: Cardiac arrest Interval history: Patient seen and examined at the bedside. Extubated after successful spontaneous breathing trial. He has no complaints or concerns at this time. Urine output remains good. He is net -120 mL in the last 24 hours. Objective - Vital Signs Vital signs: Vital Signs Temp Pulse Resp BP Pulse Ox 05/23/16 08:23 29 96 05/23/16 07:43 101.5 F H 05/23/16 07:35 22 96 05/23/16 07:00 117 33 137/96 95 05/23/16 06:00 89 28 91/66 100 05/23/16 05:51 20 99 05/23/16 05:00 73 20 87/61 98 05/23/16 04:00 65 20 122/51 99 05/23/16 03:54 64 05/23/16 03:00 98.8 F 64 20 124/50 98 05/23/16 02:19 20 99 05/23/16 02:00 66 20 110/49 98 05/23/16 01:00 40 20 112/40 97 05/23/16 00:00 83 20 130/53 98 05/22/16 23:41 82 05/22/16 23:00 82 20 133/52 96 05/22/16 22:10 20 98 05/22/16 22:00 63 20 106/43 100 05/22/16 21:00 63 20 95/40 99 05/22/16 20:32 20 84/57 99 05/22/16 20:28 91 05/22/16 20:00 91 24 145/59 98 05/22/16 19:00 99.0 F 78 20 79/51 97 05/22/16 18:00 75 20 112/48 97 05/22/16 17:10 31 135/48 98 05/22/16 16:00 73 31 135/48 98 05/22/16 15:30 63 05/22/16 15:13 99.3 F 05/22/16 15:02 20 97 05/22/16 15:00 63 21 108/45 98 05/22/16 14:00 76 20 97/42 97 05/22/16 13:35 20 97/42 97 05/22/16 13:00 81 20 114/46 98 05/22/16 12:00 87 23 155/59 96 05/22/16 11:43 100.3 F H 05/22/16 11:09 71 05/22/16 11:00 71 20 116/48 98 05/22/16 10:00 68 20 110/43 98 05/22/16 09:30 84 22 120/67 Intake and Output 05/22/16 05/23/16 05/23/16 23:59 07:59 15:59 Intake Total 488 / 488 316 / 316 Output Total 600 / 600 450 / 450 Balance -112 / -112 -134 / -134 Intake: IV Fluids 394 / 394 248 / 248 Amiodarone 360mg/200mL 200 / 200 23 / 23 Drip Premix 360 mg In 200 ml @ 0.5 MG/MIN 16.667 mls/hr IVC CONT [facility] Rx#: [id number] FentaNYL (PF) 3,000 MCG 161 / 161 171 / 171 In 0.9 % Sodium Chloride 240 ML @ 50 MCG/HR 5 mls/ hr IVC CONT [facility] Rx#: [id number] Diprivan 1,000 mg In 100 33 / 33 44 / 44 ml @ 5 MCG/KG/MIN 2.61 mls/hr IVC .Q24H [facility] Rx#: [id number] Calcium Gluconate 1,000 10 / 10 MG In Dextrose 5% 100 ML @ 50 mls/hr IVPB Q6HR PRN Rx#:[id number] Tube Feeding 74 / 74 68 / 68 Free Water Intake Amount Output: Urine 400 / 400 Catheter 200 / 200 450 / 450 Other: Meal Nourishment/Supplement Nourishment/Supplement Blood Glucose* 95 - General Appearance Exam: General: Patient is alert and in no acute distress HEENT: Normocephalic atraumatic, pupils are equal round and reactive to light and accommodation, tympanic membrane is intact, nares is patent, mucous membranes moist, throat is not injected, no JVD, trachea is midline Cardiovascular: Regular rate and rhythm without murmur Respiratory: Lungs are clear to auscultation bilaterally, no wheezing, rhonchi, rales Abdomen: Soft, nontender, nondistended, positive bowel sounds in all 4 quadrants Extremities: Warm, dry, mild lower extremity edema Neuro: A&Ox3, speech is appropriate, cranial nerves II through XII are normal as tested - Lab 05/23/16 04:14 05/23/16 04:14 Most recent lab results ABG pH 7.46 pH Units (7.32-7.45) H 05/23/16 04:35 ABG pCO2 34 mmHg (35-45) L 05/23/16 04:35 ABG pO2 93 mmHg (85-104) 05/23/16 04:35 ABG HCO3 24.2 mEQ/L (21-27) 05/23/16 04:35 ABG O2 Saturation 98 % (95-98) 05/23/16 04:35 Calcium 7.8 mg/dL (8.6-10.8) L 05/23/16 04:14 Phosphorus 3.4 mg/dL (2.3-4.7) 05/23/16 04:14 Magnesium 2.0 mg/dL (1.6-2.6) 05/23/16 04:14 Urine Sodium 50.0 mEq/L 05/22/16 12:50 - VTE Documentation of Mechanical Device: Intermittent pneumatic compression device Consult Discharge Plan - Plan Referrals: John Peace MD [Primary Care Provider] - 05/24/16 9:45 am Salvador Bosch MD [Partnered Physician] - 06/28/16 1:00 pm Prescriptions: Atorvastatin [Lipitor] 40 mg PO HS #1 tablet
[2016-05-23] MEDS: Chlorhexidine Rinse 15 ML MOUTHWASH MM SCH (09:15)
[2016-05-23] MEDS: Docusate Oral Soln 100 MG/10 ML UDC PO SCH ×2 (09:16→20:35)
[2016-05-23 09:19] LABS: Immature Granulocytes % 0.6 % (0-4)
[2016-05-23 09:21] LABS: Basophils % 0.2 %; Eosinophils # 0.2 K/mcL (0.0-0.6); Eosinophils % 1.6 %; Immature Platelets 5.9 % (1.1-6.1); Lymphocytes % 9.1 %; Mean Corpuscular HGB Conc 34.8 g/dL (31.6-35.5); Mean Corpuscular Hemoglobin 30.5 pg (28.0-33.3); Mean Corpuscular Volume 87.8 fL (83.0-100.0); Mean Platelet Volume 10.3 fL (9.4-12.4); Monocytes # 1.3 K/mcL (0.0-1.3); Monocytes % 12.4 %; Neutrophils # 8.1 K/mcL (1.6-8.9); Platelet Count 103 K/mcL (140-400); Red Blood Count 2.62 M/mcL (4.19-5.50); Red Cell Distribution Width 14.9 % (11.5-14.5); Segmented Neutrophils % 76.1 %
--- NOTE | 2016-05-23 11:05 | Pulmonology Progress Note ---
Date of Encounter: 05/23/16 Time of Encounter: 08:00 Assessment and Plan (1) Acute respiratory failure with hypoxia Current Visit: Yes Status: Acute Patient is extubated and breathing well on his own with good effort without accessory muscle use. Oxygen saturation 100% on room air will continue to monitor patient oxygen saturation levels. (2) Cardiac arrest Current Visit: Yes Status: Acute Status post cardiac arrest that occurred intraoperatively during endograft repair for abdominal aortic aneurysm. Goal map greater than 65. Continue amiodarone due to V. fib. Vitals stable. Continuous cardiac monitoring. Coronary artery disease and prior CABG. (3) Shock circulatory Current Visit: Yes Status: Acute Secondary to cardiac arrest Resolving patient is now off vasopressors. Continue to monitor. (4) NIKOLE (acute kidney injury) Current Visit: Yes Status: Acute Subcapsular renal hematoma. No evidence of hydronephrosis. Renal following. Hold ASA due to renal hematoma. Hold beta lake due to hypotension. Hold ANDREA inhibitor due to hypotension/acute kidney injury. Patient's BUN and creatinine have been trending upward over the past 2 days. Today BUN 33 creatinine 2.09 with a GFR of 31. We will continue to monitor patient and trending daily labs. Monitoring of I's and O's as patient may begin to diurese himself. Chest x-ray demonstrated worsening CHF with 2 pleural effusions. Will reevaluate tomorrow with repeat chest x-ray. (5) Acute blood loss anemia Current Visit: Yes Status: Acute Hold aspirin and Plavix for acute blood loss anemia. Will continue subcutaneous heparin for prophylaxis DVT. (6) CVA (cerebral vascular accident) Current Visit: Yes Status: Acute Today patient is moving all 4 extremities. Resolution of previous neurological deficit of left upper extremity paralysis. We will continue to perform daily neurologic examination and monitor for further improvement. Head CT demonstrates subacute left watershed distribution CVA. Contributing factors include carotid disease and hypotension during cardiac arrest. Neurology plans for permissive hypertension. Goal RAAS -2. Qualifiers: CVA mechanism: occlusion Precerebral and cerebral artery: carotid artery Laterality of affected vessel: left Qualified Code(s): I63.232 - Cerebral infarction due to unspecified occlusion or stenosis of left carotid arteries (7) Abdominal aortic aneurysm Current Visit: Yes Status: Chronic Qualifiers: Presence of rupture: without rupture Qualified Code(s): I71.4 - Abdominal aortic aneurysm, without rupture (8) Elevated troponin I level Current Visit: Yes Status: Acute (9) DVT prophylaxis Current Visit: Yes Status: Acute (10) Carotid artery disease Current Visit: Yes Status: Chronic Qualifiers: Laterality: bilateral Qualified Code(s): I77.9 - Disorder of arteries and arterioles, unspecified (11) HLD (hyperlipidemia) Current Visit: Yes Status: Chronic Qualifiers: Hyperlipidemia type: mixed hyperlipidemia Qualified Code(s): E78.2 - Mixed hyperlipidemia (12) PAD (peripheral artery disease) Current Visit: Yes Status: Chronic (13) Tobacco abuse Current Visit: Yes Status: Chronic Subjective Principal diagnosis: Cardiac arrest Interval history: Patient is day 4 status post cardiac arrest that occurred intraoperatively during endograft repair of an abdominal aortic aneurysm. Patient has a past medical history significant for coronary artery disease, peripheral vascular disease. Extubation. Patient is on CPAP and became slightly agitated fentanyl 75. Overnight the patient left arm was noted to be turning blue the A-line was removed. Patient is now moving left upper extremity. Pt moving All 4 extremities. Patient is alert and responding to voice commands and verbally responding requesting his Benjamin be removed so that he can urinate on his own. Hemoglobin is improved and stable from prior continue to monitor as patient has suffered acute blood loss anemia. Overnight patient reportedly bradycardia down to 50s and amiodarone drip was stopped however, this morning she was noted to be tachycardia over 150s amiodarone was restarted. Acute CVA with left sided deficits. Will continue supportive measures to avoid hypotension. Objective PUL Vital signs: Last Vital Signs Temp 101.5 F H 05/23/16 07:43 Pulse 98 05/23/16 09:00 Resp 22 05/23/16 09:00 BP 96/74 05/23/16 09:00 Pulse Ox 95 05/23/16 09:00 General appearance: no acute distress, alert Eyes: nonicteric ENT: oropharynx moist Neck: supple, no lymphadenopathy, no JVD Effort: normal Auscultation: bilateral: clear Cardiovascular: regular rate and rhythm Gastrointestinal: normoactive bowel sounds, soft, non-tender, non-distended Integumentary: normal Extremities: no cyanosis, no edema, no clubbing, pink and warm, pulses normal Musculoskeletal: no deformities, ROM normal normal mental status, non-focal exam, pupils equal and round mood appropriate, affect normal Ventilator Settings Ventilator Settings: Ventilator Settings, Last 8 Hours Ventilator Mode CPAP Ventilator Mode CPAP Ventilator Mode CPAP Ventilator Mode CPAP Ventilator Mode VC+ Ventilator Mode VC+ Ventilator Mode VC+ Ventilator Mode VC+ Ventilator Tidal Volume 500 Setting Ventilator Tidal Volume 500 Setting Ventilator Tidal Volume 500 Setting Ventilator Tidal Volume 500 Setting Ventilator Tidal Volume 500 Setting Ventilator Respiratory Rate 20 Setting Ventilator Respiratory Rate 20 Setting Ventilator Respiratory Rate 20 Setting Ventilator Respiratory Rate 20 Setting Actual Respiratory Rate 31 Actual Respiratory Rate 22 Actual Respiratory Rate 28 Actual Respiratory Rate 20 Actual Respiratory Rate 20 Actual Respiratory Rate 20 Actual Respiratory Rate 20 Positive End Expiratory 5 Pressure Positive End Expiratory 5 Pressure Positive End Expiratory 5 Pressure Positive End Expiratory 5 Pressure Positive End Expiratory 5 Pressure Positive End Expiratory 5 Pressure Peak Inspiratory Airway 8.1 Pressure Peak Inspiratory Airway 13 Pressure Peak Inspiratory Airway 23 Pressure Peak Inspiratory Airway 23 Pressure Peak Inspiratory Airway 23 Pressure Peak Inspiratory Airway 23 Pressure Results - Laboratory Findings CBC and BMP: 05/23/16 04:14 05/23/16 04:14 ABG ABG pH 7.46 pH Units (7.32-7.45) H 05/23/16 04:35 ABG pCO2 34 mmHg (35-45) L 05/23/16 04:35 ABG pO2 93 mmHg (85-104) 05/23/16 04:35 ABG O2 Saturation 98 % (95-98) 05/23/16 04:35 PT/INR, D-dimer PT 16.2 Seconds (9.4-12.1) H 05/21/16 07:20 Abnormal lab findings: Abnormal lab results RBC 2.62 M/mcL (4.19-5.50) L 05/23/16 04:14 Hgb 8.0 g/dL (12.9-16.9) L 05/23/16 04:14 Hct 23.0 % (37.5-50.1) L 05/23/16 04:14 RDW 14.9 % (11.5-14.5) H 05/23/16 04:14 Plt Count 103 K/mcL (140-400) L 05/23/16 04:14 Nucleated RBCs/100 WBC 0.1 /100 WBC (0) H 05/19/16 08:35 Platelet Estimate Decreased (Normal) L 05/21/16 04:06 PT 16.2 Seconds (9.4-12.1) H 05/21/16 07:20 APTT 110.6 Seconds (26.0-36.0) H* D 05/19/16 02:00 ABG pH 7.46 pH Units (7.32-7.45) H 05/23/16 04:35 ABG pCO2 34 mmHg (35-45) L 05/23/16 04:35 ABG Hematocrit 23 % (35-51) L 05/18/16 12:03 Glucose 201 mg/dL (60-95) H 05/18/16 12:03 Lactate 7.6 mmol/L (0.7-2.1) H* 05/18/16 12:03 Sodium 132 mEq/L (136-145) L 05/23/16 04:14 Carbon Dioxide 18 mEq/L (19-29) L 05/23/16 04:14 BUN 33 mg/dL (8-26) H 05/23/16 04:14 Creatinine 2.09 mg/dL (0.72-1.25) H 05/23/16 04:14 Est GFR ( Amer) 38 (> 60) L 05/23/16 04:14 Est GFR (Non-Af Amer) 31 (> 60) L 05/23/16 04:14 Glucose 106 mg/dL (70-99) H 05/23/16 04:14 POC Glucose 101 (58-89) H 05/22/16 23:42 Serum Osmolality 274 mOsm/kg (280-300) L 05/22/16 12:50 Calcium 7.8 mg/dL (8.6-10.8) L 05/23/16 04:14 Ionized Calcium 0.77 mmol/L (1.15-1.35) L 05/23/16 04:14 Troponin I 9.44 ng/mL (0-0.03) H* 05/19/16 13:05 Serum Total Protein 4.5 g/dL (6.0-8.3) L 05/23/16 04:14 Albumin 1.9 g/dL (3.5-5.0) L 05/23/16 04:14 Albumin/Globulin Ratio 0.7 (1.1-2.2) L 05/23/16 04:14 Urine Clarity Turbid (Clear) A 05/22/16 12:50 Urine Protein 100 mg/dL (Neg-Trace) H 05/22/16 12:50 Urine Blood Large (Negative) H 05/22/16 12:50 Urine Microscopic RBC 5-15 per hpf (0-3) H 05/22/16 12:50 Urine Bacteria Many per hpf (None-Few) H 05/22/16 12:50 - Microbiology Findings Microbiology Findings: Microbiology, Last 48 Hours 05/21/16 09:30 Sputum Culture - Final Sputum - Diagnostic Findings Chest x-ray: report reviewed, image reviewed, other - Clinical Findings Intake & Output: Intake & Output 05/22/16 05/23/16 05/23/16 23:59 07:59 15:59 Intake Total 488 / 488 316 / 316 155 / 155 Output Total 600 / 600 450 / 450 Balance -112 / -112 -134 / -134 155 / 155 - VTE Documentation of Mechanical Device: Intermittent pneumatic compression device Consult Discharge Plan - Plan Referrals: John Peace MD [Primary Care Provider] - 05/24/16 9:45 am Salvador Bosch MD [Partnered Physician] - 06/28/16 1:00 pm Prescriptions: Atorvastatin [Lipitor] 40 mg PO HS #1 tablet
[2016-05-23] MEDS: Pantoprazole 40 MG VIAL IVPB SCH (11:31)
--- NOTE | 2016-05-23 12:56 | Cardiology Progress Note ---
Date of Encounter: 05/23/16 Time of Encounter: 12:53 Assessment and Plan (1) Cardiac arrest Current Visit: Yes Status: Acute Intraoperative CPR (PEA, followed by VT per reports). EF 45-50%. Recommend transition to amiodarone 200 mg PO if passes swallow evaluation. (2) CAD (coronary artery disease) Current Visit: Yes Status: Chronic Known history of CAD, prior CABG. s/p CPA. Mild ischemic CMP - EF 45-50%. Aspirin held due to renal hematoma. BB held due to hypotension. ACEi held due to hypotension/NIKOLE. Resume aspirin/statin/bb therapy as clinical condition/BP tolerates. Qualifiers: Coronary Disease-Associated Artery/Lesion type: unspecified vessel or lesion type [place] vs. transplanted heart: [place] heart Associated angina: without angina Qualified Code(s): I25.10 - Atherosclerotic heart disease of [place] coronary artery without angina pectoris (3) NIKOLE (acute kidney injury) Current Visit: Yes Status: Acute Nephrology following. (4) CVA (cerebral vascular accident) Current Visit: Yes Status: Acute Watershed event on CT likely due to CPA. Qualifiers: CVA mechanism: occlusion Precerebral and cerebral artery: carotid artery Laterality of affected vessel: left Qualified Code(s): I63.232 - Cerebral infarction due to unspecified occlusion or stenosis of left carotid arteries (5) Elevated troponin I level Current Visit: Yes Status: Acute Significantly elevated troponin in setting of surgery with CPA. Anemia requiring discontinuation of aspirin and heparin gtt. CVA and NIKOLE also noted. Medical therapy recommended last week - not an ideal candidate for LHC. EF mildly reduced, 45-50%. Continue to monitor cardiac status. (6) Abdominal aortic aneurysm Current Visit: Yes Status: Chronic Postoperative day #5 status post EVAR. Vascular surgery following. Qualifiers: Presence of rupture: without rupture Qualified Code(s): I71.4 - Abdominal aortic aneurysm, without rupture Discussion w patient/family: The assessment and plan as outlined above was discussed with the patient and/or family members who expressed understanding and agreement. All questions were answered. Thank you for involving us in the care of your patient. Please call with any questions. Subjective Principal diagnosis: Cardiac arrest Interval history: Patient seen and examined. Patient extubated earlier today. Seems confused. General weakness. HR remains stable - sinus rhythm, first degree AV block. No significant ectopy on monitor. Objective Vital Signs, Last 4 Hours Pulse Resp BP Pulse Ox 05/23/16 12:00 72 22 90/68 94 L 05/23/16 11:00 75 20 106/76 94 L 05/23/16 10:00 98 22 107/75 95 05/23/16 09:00 98 22 96/74 95 General: Other (Answers questions. Generally weak/frail. ) HEENT: Atraumatic, Normocephaly, Mucus Membranes Moist Neck: No JVD Cardiac: Reg Rate and Rhythm, Normal S1 and S2, No Murmur Lungs: Other (Shallow. Scatterhed rhonchi. ) Neuro: Alert and responsive Abdomen: Soft, Non-Tender Skin: No rashes noted on visualized skin Musculoskeletal: No Chest Wall Tenderness Extremities: No Clubbing, No Cyanosis Results 05/23/16 04:14 05/23/16 04:14 Lab Results 05/22/16 05/22/16 05/22/16 12:50 12:50 18:11 WBC Hgb 8.6 L 8.4 L Hct 24.4 L 23.5 L Plt Count Sodium Potassium Chloride Carbon Dioxide BUN Creatinine Glucose Calcium Magnesium Total Bilirubin AST ALT Alkaline Phosphatase TSH 1.950 05/22/16 05/22/16 05/23/16 18:11 23:38 04:14 WBC Hgb 9.0 L Hct 25.2 L Plt Count Sodium 129 L 132 L Potassium 3.9 3.8 Chloride 101 104 Carbon Dioxide 20 18 L BUN 30 H 33 H Creatinine 2.07 H 2.09 H Glucose 100 H 106 H Calcium 7.8 L 7.8 L Magnesium 1.9 2.0 Total Bilirubin 1.0 AST 28 ALT 15 Alkaline Phosphatase 79 TSH 05/23/16 04:14 WBC 10.7 Hgb 8.0 L Hct 23.0 L Plt Count 103 L Sodium Potassium Chloride Carbon Dioxide BUN Creatinine Glucose Calcium Magnesium Total Bilirubin AST ALT Alkaline Phosphatase TSH - Imaging and Cardiology Echo: report reviewed - VTE Documentation of Mechanical Device: Intermittent pneumatic compression device Consult Discharge Plan - Plan Referrals: John Peace MD [Primary Care Provider] - 05/24/16 9:45 am Salvador Bosch MD [Partnered Physician] - 06/28/16 1:00 pm Prescriptions: Atorvastatin [Lipitor] 40 mg PO HS #1 tablet
[2016-05-23] MEDS: Nicotine 21 MG PATCH.TD24 TD SCH (13:40)
--- NOTE | 2016-05-23 13:46 | Event Note ---
Date of Encounter: 05/23/16 Time of Encounter: 13:43 Attending Attestation to Resident Note: The patient was seen and examined with the house staff. Care was discussed on multidisciplinary rounds. Full resident note is pending. This will serve as my addendum to the resident note. 1. Acute respiratory failure with hypoxia 2. Cardiac arrest 3. Shock 4. Acute CVA 5. Anemia due to acute blood loss 6. Acute renal failure 75-year-old white male with a medical history significant for coronary artery disease, peripheral vascular disease who presents with a cardiac arrest intraoperatively during an endograft repair of an abdominal aortic aneurysm. He passed his SBT this AM and was following commands. He was extubated 05/23/16 , and we will continue to monitor his respiratory status. His shock appears to be resolved, and he is off vasopressors. Acute CVA with reported right-sided deficits. Continue supportive measures and avoid hypotension. Will begin PT/OT when appropriate. Acute blood loss anemia related to left renal subscapular hematoma. We will continue to trend hemoglobin and transfuse for hemoglobin less than 7 or signs of acute bleeding. Acute renal failure is multifactorial and due to ATN/hypoperfusion and hematoma. Continue to trend urine output and Chem-7. Creatinine appears to have plateaued. His urine output is picking up, and he had a negative fluid balance over the past 24 hours. Of note, he is over 7 L positive for this admission. Continue ICU level of care.
[2016-05-23] MEDS ORDERED: *HR* HYDROcodone/Acet 5/325 mg TABLET PO PRN (14:01)
--- NOTE | 2016-05-23 14:31 | Vascular/[facility] Progress Note ---
Date of Encounter: 05/22/16 Time of Encounter: 16:00 - Assessment and plan (1) Abdominal aortic aneurysm Status: Chronic He is postoperative day #4 after endograft repair of his aneurysm. He remains intubated. He remains stable today. Continue with supportive care. The patient was discussed with the ICU team and his family. Qualifiers: Presence of rupture: without rupture Qualified Code(s): I71.4 - Abdominal aortic aneurysm, without rupture (2) CAD (coronary artery disease) Status: Chronic Qualifiers: Coronary Disease-Associated Artery/Lesion type: bypass graft [place] vs. transplanted heart: [place] heart Associated angina: without angina Qualified Code(s): I25.810 - Atherosclerosis of coronary artery bypass graft(s) without angina pectoris (3) Carotid artery disease Status: Chronic Qualifiers: Laterality: bilateral Qualified Code(s): I77.9 - Disorder of arteries and arterioles, unspecified (4) HLD (hyperlipidemia) Status: Chronic Qualifiers: Hyperlipidemia type: mixed hyperlipidemia Qualified Code(s): E78.2 - Mixed hyperlipidemia (5) HTN (hypertension) Status: Chronic Qualifiers: Hypertension type: essential hypertension Qualified Code(s): I10 - Essential (primary) hypertension (6) PAD (peripheral artery disease) Status: Chronic (7) Tobacco abuse Status: Chronic - Subjective Interval history: Patient remains sedated and intubated. His hemoglobin dropped overnight. CT scan reveals a left renal hematoma. Vital Signs, Last 4 Hours Temp Pulse Resp BP Pulse Ox 05/23/16 13:00 73 20 101/93 93 L 05/23/16 12:00 98.0 F 72 22 90/68 94 L 05/23/16 11:00 75 20 106/76 94 L - Physical Examination General: Present: No Apparent Distress HEENT: Present: Pupils equal Cardiac: Present: Reg Rate and Rhythm Lungs: Present: Normal Breath Sounds Neuro: Present: Other (sedated and intubated) Vascular: Present: Normal capillary refill, Edema (trace), Surgical incisions ( incisions clean, dry and intact). Absent: Cyanosis Abdomen: Present: Soft, Non-tender - VTE Documentation of Mechanical Device: Intermittent pneumatic compression device Results 05/26/16 04:44 05/26/16 04:44 Lab Results, Last 24 hours 05/22/16 05/22/16 05/22/16 18:11 18:11 23:38 WBC Hgb 8.4 L 9.0 L Hct 23.5 L 25.2 L Plt Count Sodium 129 L Potassium 3.9 Chloride 101 Carbon Dioxide 20 BUN 30 H Creatinine 2.07 H Glucose 100 H Calcium 7.8 L Magnesium 1.9 Total Bilirubin AST ALT Alkaline Phosphatase 05/23/16 05/23/16 04:14 04:14 WBC 10.7 Hgb 8.0 L Hct 23.0 L Plt Count 103 L Sodium 132 L Potassium 3.8 Chloride 104 Carbon Dioxide 18 L BUN 33 H Creatinine 2.09 H Glucose 106 H Calcium 7.8 L Magnesium 2.0 Total Bilirubin 1.0 AST 28 ALT 15 Alkaline Phosphatase 79 Consult Discharge Plan - Plan Referrals: John Peace MD [Primary Care Provider] - (PATIENT IS GOING TO SWING BED, NO PCP APPOINTMENT NEEDED) Salvador Bosch MD [Partnered Physician] - 06/28/16 1:00 pm [place] DO [Partnered Physician] - (2-4 WEEKS) Justice Foreman DO [Partnered Physician] - (2-4 weeks) Prescriptions: OxyCODONE/APAP 7.5/325 [Percocet 7.5/325 MG] 1 each PO Q4HR PRN #40 tablet PRN Reason: postoperative pain
[2016-05-23 16:36] LABS: Hematocrit 22.5 % (37.5-50.1); Hemoglobin 7.8 g/dL (12.9-16.9)
[2016-05-23 16:49] LABS: Calcium 7.9 mg/dL (8.6-10.8); Magnesium 1.9 mg/dL (1.6-2.6)
--- NOTE | 2016-05-23 17:09 | Electrocardiograph Report ---
[facility] Test Date: 2016-05-22 Pat Name: LAUREN BRITT Department: 109 Room: 04 Gender: M Chiller Hand: THAO : 1940 Requested By: Salvador Bosch Order Number: [id number] Reading MD: Isabell Mcmahan Measurements Intervals [place] Rate: 74 P: 118 NC: 210 QRS: -56 QRSD: 152 T: 120 QT: 469 QTc: 497 Interpretive Statements SINUS RHYTHM WITH FIRST DEGREE AV BLOCK RIGHT BUNDLE BRANCH BLOCK LEFT ANTERIOR FASCICULAR BLOCK MODERATE T-WAVE ABNORMALITY, CONSIDER LATERAL ISCHEMIA Electronically Signed On 05-23-16 17:07:03 EST by Isabell Mcmahan
[2016-05-23] MEDS ORDERED: *HR* HYDROmorphone (PF) 1 MG/ML SYRINGE IVP ONE (17:57)
--- NOTE | 2016-05-23 18:08 | Electrocardiograph Report ---
[facility] Test Date: 2016-05-23 Pat Name: Khang Rosado Department: 109 Room: 04 Gender: M [employer] Hcm Consultant: THAO : 1940 Requested By: Justice Foreman Order Number: [id number] Reading MD: Isabell Mcmahan Measurements Intervals [place] Rate: 80 P: -14 ME: 223 QRS: -58 QRSD: 167 T: 78 QT: 463 QTc: 499 Interpretive Statements SINUS RHYTHM WITH FIRST DEGREE AV BLOCK RIGHT BUNDLE BRANCH BLOCK LEFT ANTERIOR FASCICULAR BLOCK Electronically Signed On 05-23-16 18:07:36 EST by Isabell Mcmahan
[2016-05-23] MEDS: *HR* Amiodarone 200 MG TABLET PO SCH (18:13)
[2016-05-23] MEDS: Norepinephrine 4 MG in D5% in Water 250 ML IVC SCH (18:14)
[2016-05-23] MEDS: *HR* HYDROcodone/Acet 5/325 mg TABLET PO PRN (21:30)
[2016-05-24] MEDS: Lacri-Lube 3.5 GM TUBE BOTH EYES SCH ×5 (00:24→14:21)
[2016-05-24] MEDS: *HR* Morphine 2 MG/ML SYRINGE IVP PRN ×5 (01:05→22:10)
[2016-05-24] MEDS: *HR* HYDROcodone/Acet 5/325 mg TABLET PO PRN ×2 (03:54→10:48)
[2016-05-24 04:45] LABS: Albumin/Globulin Ratio 0.7 (1.1-2.2); Bilirubin,Total 1.5 mg/dL (0.2-1.2); Calcium 8.1 mg/dL (8.6-10.8); Globulin 2.8 g/dL (2.4-3.5); Magnesium 1.9 mg/dL (1.6-2.6); Phosphorous 3.2 mg/dL (2.3-4.7); Potassium 3.8 mEq/L (3.5-4.5); Total Protein 4.8 g/dL (6.0-8.3)
[2016-05-24] MEDS: *HR* Heparin 5,000 UNIT/ML VIAL SQ SCH ×2 (06:01→14:21)
[2016-05-24] MEDS: Nicotine 21 MG PATCH.TD24 TD SCH (08:06)
[2016-05-24] MEDS: Docusate Oral Soln 100 MG/10 ML UDC PO SCH ×2 (08:07→21:27)
[2016-05-24] MEDS: *HR* Amiodarone 200 MG TABLET PO SCH (08:07)
[2016-05-24] MEDS: Pantoprazole 40 MG VIAL IVPB SCH (08:45)
--- NOTE | 2016-05-24 08:53 | Vascular/[facility] Progress Note ---
Date of Encounter: 05/23/16 Time of Encounter: 17:05 - Assessment and plan (1) Abdominal aortic aneurysm Status: Chronic He is postoperative day #5 after endograft repair of his aneurysm. He has been extubated. He has no focal neurologic deficits. If he remains stable overnight he will be transferred to the floor. Continue with supportive care. Qualifiers: Presence of rupture: without rupture Qualified Code(s): I71.4 - Abdominal aortic aneurysm, without rupture (2) CAD (coronary artery disease) Status: Chronic Qualifiers: Coronary Disease-Associated Artery/Lesion type: bypass graft [place] vs. transplanted heart: [place] heart Associated angina: without angina Qualified Code(s): I25.810 - Atherosclerosis of coronary artery bypass graft(s) without angina pectoris (3) Carotid artery disease Status: Chronic Qualifiers: Laterality: bilateral Qualified Code(s): I77.9 - Disorder of arteries and arterioles, unspecified (4) HLD (hyperlipidemia) Status: Chronic Qualifiers: Hyperlipidemia type: mixed hyperlipidemia Qualified Code(s): E78.2 - Mixed hyperlipidemia (5) HTN (hypertension) Status: Chronic Qualifiers: Hypertension type: essential hypertension Qualified Code(s): I10 - Essential (primary) hypertension (6) PAD (peripheral artery disease) Status: Chronic (7) Tobacco abuse Status: Chronic - Subjective Interval history: He was extubated today. He is alert and comfortable. He denies chest pain or shortness of breath. Vital Signs, Last 4 Hours Temp Pulse Resp BP Pulse Ox 05/24/16 08:15 75 20 115/83 97 05/24/16 08:05 97.7 F 05/24/16 07:15 78 19 120/77 96 05/24/16 06:00 80 18 118/83 97 05/24/16 05:00 80 20 115/85 96 05/24/16 04:57 98.0 F - Physical Examination General: Present: Conversant HEENT: Present: Pupils equal Cardiac: Present: Reg Rate and Rhythm Lungs: Present: Normal Breath Sounds Neuro: Present: Alert and responsive, No focal deficits noted, Motor nerves grossly intact, Sensory nerves grossly intact Vascular: Present: Normal capillary refill, Surgical incisions (incisions healing well). Absent: Cyanosis, Edema Abdomen: Present: Soft, Non-tender. Absent: Masses - VTE Documentation of Mechanical Device: Intermittent pneumatic compression device Results 05/26/16 04:44 05/26/16 04:44 Lab Results, Last 24 hours 05/23/16 05/23/16 05/23/16 04:14 16:15 16:15 WBC 10.7 Hgb 8.0 L 7.8 L Hct 23.0 L 22.5 L Plt Count 103 L Sodium 131 L Potassium 4.0 Chloride 104 Carbon Dioxide 20 BUN 36 H Creatinine 2.10 H Glucose 131 H Calcium 7.9 L Magnesium 1.9 Total Bilirubin AST ALT Alkaline Phosphatase 05/24/16 04:05 WBC Hgb Hct Plt Count Sodium 135 L Potassium 3.8 Chloride 106 Carbon Dioxide 19 BUN 36 H Creatinine 1.96 H Glucose 120 H Calcium 8.1 L Magnesium 1.9 Total Bilirubin 1.5 H AST 38 H ALT 20 Alkaline Phosphatase 86 Consult Discharge Plan - Plan Referrals: John Peace MD [Primary Care Provider] - (PATIENT IS GOING TO SWING BED, NO PCP APPOINTMENT NEEDED) Salvador Bosch MD [Partnered Physician] - 06/28/16 1:00 pm [place] DO [Partnered Physician] - (2-4 WEEKS) Justice Foreman DO [Partnered Physician] - (2-4 weeks) Prescriptions: OxyCODONE/APAP 7.5/325 [Percocet 7.5/325 MG] 1 each PO Q4HR PRN #40 tablet PRN Reason: postoperative pain
[2016-05-24] MEDS ORDERED: *HR* Dextrose 50 % in Water (Syg) 50 ML SYRINGE IVP PRN ×2 (09:18→15:15)
[2016-05-24] MEDS ORDERED: Dextrose Gel 15 GM PO PRN ×4 (09:18→15:15)
[2016-05-24] MEDS ORDERED: D5% in Water 1,000 ML IV PRN ×2 (09:18→15:15)
--- NOTE | 2016-05-24 09:24 | Nephrology Progress Note ---
Date of Encounter: 05/24/16 Time of Encounter: 09:00 - Assessment and Plan (1) NIKOLE (acute kidney injury) Current Visit: Yes Status: Acute Improving. Nonoliguric acute kidney injury in the setting of hypotension requiring vasopressors, and acute blood loss anemia. He continues to have a negative fluid balance over the previous 24 hours and his urine output is increasing. Continue to follow a renal protective strategy and dose any medications accordingly. No renal replacement therapy needed at this time, patient remains with good urinary output, and no acute indications for [employer]. (acidosis, electrolyte imbalances, significant volume overload, uremia) (2) Hyponatremia Current Visit: Yes Status: Acute Improving. Patient with hypervolemic hyponatremia, 6 L positive from admission. Serum osmolality 274. Urine osmolality 422. Urine sodium 50. Chest x-ray today with mild improvement of central pulmonary venous congestion. Auto diuresing well. Continue to monitor patient's volume status closely. Consider diuretic in the setting of volume overload. (3) Renal hematoma Current Visit: Yes Status: Acute CT abdomen and pelvis without contrast reveals an acute large left renal subcapsular hematoma measuring 4.5 cm in thickness and extending along the entire length of the kidney with parenchymal deformation. Mild free left pararenal retroperitoneal hemorrhage. Vascular surgery following. Recommended conservative management at this time. Anticoagulation has been reduced to subcutaneous heparin. If patient continues to have drop in hemoglobin, recommendation would be to contact interventional radiology for possible embolization of any bleeding vessels. CBC pending this morning. Qualifiers: Encounter type: subsequent encounter Laterality: left Qualified Code(s): S37.012D - Minor contusion of left kidney, subsequent encounter (4) Acute blood loss anemia Current Visit: Yes Status: Acute In the setting of a large left renal subcapsular hematoma, pararenal retroperitoneal hemorrhage, left pelvic retroperitoneal hematoma, and bilateral diffuse pelvic and proximal thigh hemorrhage. Total of 7 units packed red blood cells have been transfuse at this time. CBC pending this morning. Patient has been weaned off vasopressors. Continue to monitor closely and consider IR consultation if continued drop in hemoglobin. (5) Cardiac arrest Current Visit: Yes Status: Acute Intraoperative cardiac arrest during endovascular AAA repair. Initial rhythm PEA followed by ventricular tachycardia. Transthoracic echocardiogram with left ventricular ejection fraction 45-50%. Amiodarone transitioned to oral. Cardiology following. (6) Abdominal aortic aneurysm Current Visit: Yes Status: Chronic Postoperative day #6 status post EVAR. Anticoagulation has been held due to acute blood loss anemia in the setting of left renal hematoma. Vascular surgery following. Qualifiers: Presence of rupture: without rupture Qualified Code(s): I71.4 - Abdominal aortic aneurysm, without rupture (7) CVA (cerebral vascular accident) Current Visit: Yes Status: Acute Head CT notable for subacute watershed distribution CVA likely due to carotid disease with hypotension during to cardiac arrest. Neurology following. 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 New small complex mass in the lower left kidney concerning for a second neoplasm. Consider interventional radiology consultation if patient's hemoglobin continues to drop, as bleeding may be coming directly from renal mass. (9) CAD (coronary artery disease) Current Visit: Yes Status: Chronic Patient with a known history of coronary artery disease, prior CABG. Aspirin held due to renal hematoma. Beta lake held due to hypotension. ANDREA inhibitor held due to hypotension/acute kidney injury. Cardiology following. Qualifiers: Coronary Disease-Associated Artery/Lesion type: unspecified vessel or lesion type [place] vs. transplanted heart: [place] heart Associated angina: without angina Qualified Code(s): I25.10 - Atherosclerotic heart disease of [place] coronary artery without angina pectoris Subjective Principal diagnosis: Cardiac arrest Interval history: Patient seen and examined at the bedside. Extubated yesterday after successful spontaneous breathing trial. Patient complains of chronic back pain as well as musculoskeletal chest pain status post CPR. Urine output remains good. He is net -800 mL in the last 24 hours. Objective - Vital Signs Vital signs: Vital Signs Temp Pulse Resp BP Pulse Ox 05/24/16 08:15 75 20 115/83 97 05/24/16 08:05 97.7 F 05/24/16 07:15 78 19 120/77 96 05/24/16 06:00 80 18 118/83 97 05/24/16 05:00 80 20 115/85 96 05/24/16 04:57 98.0 F 05/24/16 04:00 80 20 119/86 100 05/24/16 03:59 80 05/24/16 03:00 80 20 102/76 05/24/16 02:00 82 20 125/92 94 L 05/24/16 01:00 80 20 119/72 90 L 05/24/16 00:00 98.6 F 76 22 101/76 05/23/16 23:00 80 20 94/66 05/23/16 22:00 80 20 105/72 93 L 05/23/16 21:00 96 20 125/86 90 L 05/23/16 20:00 98.2 F 80 16 116/78 90 L 05/23/16 18:00 77 26 101/76 96 05/23/16 17:00 79 24 121/81 96 05/23/16 16:00 74 20 90/64 95 05/23/16 15:34 73 05/23/16 15:00 97.7 F 70 16 94/68 98 05/23/16 14:00 75 18 99/75 95 05/23/16 13:00 73 20 101/93 93 L 05/23/16 12:00 98.0 F 72 22 90/68 94 L 05/23/16 11:00 75 20 106/76 94 L 05/23/16 10:00 98 22 107/75 95 Intake and Output 05/23/16 05/24/16 05/24/16 23:59 07:59 15:59 Intake Total 60 / 60 60 / 60 Output Total 650 / 650 250 / 250 200 / 200 Balance -590 / -590 -190 / -190 -200 / -200 Intake: Oral 60 / 60 60 / 60 Output: Catheter 650 / 650 250 / 250 200 / 200 Other: Stool Size Small Small Stool Consistency soft soft Stool Characteristics Normal for Patient Normal for Patient Stool Color Brown Brown # Bowel Movements 1 1 Blood Glucose* 122 - General Appearance Exam: General: Patient is alert and in no acute distress HEENT: Normocephalic atraumatic, pupils are equal round and reactive to light and accommodation, tympanic membrane is intact, nares is patent, mucous membranes moist, throat is not injected, no JVD, trachea is midline Cardiovascular: Regular rate and rhythm without murmur Respiratory: Lungs with trace rhonchi noted bilaterally Abdomen: Soft, nontender, nondistended, positive bowel sounds in all 4 quadrants Extremities: Warm, dry, mild bilateral lower extremity edema Neuro: A&Ox3, speech is appropriate, cranial nerves II through XII are normal as tested - Lab 05/23/16 16:15 05/24/16 04:05 Most recent lab results ABG pH 7.46 pH Units (7.32-7.45) H 05/23/16 04:35 ABG pCO2 34 mmHg (35-45) L 05/23/16 04:35 ABG pO2 93 mmHg (85-104) 05/23/16 04:35 ABG HCO3 24.2 mEQ/L (21-27) 05/23/16 04:35 ABG O2 Saturation 98 % (95-98) 05/23/16 04:35 Calcium 8.1 mg/dL (8.6-10.8) L 05/24/16 04:05 Phosphorus 3.2 mg/dL (2.3-4.7) 05/24/16 04:05 Magnesium 1.9 mg/dL (1.6-2.6) 05/24/16 04:05 Urine Sodium 50.0 mEq/L 05/22/16 12:50 - VTE Documentation of Mechanical Device: Intermittent pneumatic compression device Consult Discharge Plan - Plan Referrals: John Peace MD [Primary Care Provider] - 05/24/16 9:45 am Salvador Bosch MD [Partnered Physician] - 06/28/16 1:00 pm Prescriptions: Atorvastatin [Lipitor] 40 mg PO HS #1 tablet
[2016-05-24] MEDS ORDERED: Insulin LISPRO 300 UNITS/3 ML VIAL SQ SCH ×2 (09:30→11:30)
--- NOTE | 2016-05-24 09:34 | Cardiology Progress Note ---
Date of Encounter: 05/24/16 Time of Encounter: 09:32 Assessment and Plan (1) Cardiac arrest Current Visit: Yes Status: Acute Intra-operative arrest. Per reports, initially PEA, followed by VT. EF 45-50%. Amiodarone has been changed to 200 mg by mouth daily. (2) CAD (coronary artery disease) Current Visit: Yes Status: Chronic No history of CAD, prior CABG. Status post cardiopulmonary arrest. EF 45-50%. Aspirin has been held due to anemia, renal hematoma. Beta lake held due to hypotension. A prescription for held due to hypotension/NIKOLE. Resume these medications as condition allows. Reported statin allergy. Qualifiers: Qualified Code(s): I25.10 - Atherosclerotic heart disease of [place] coronary artery without angina pectoris (3) NIKOLE (acute kidney injury) Current Visit: Yes Status: Acute Nephrology following. (4) CVA (cerebral vascular accident) Current Visit: Yes Status: Acute Head CT notable for subacute watershed distribution CVA likely due to carotid disease with hypotension during to cardiac arrest. Neurology following. Qualifiers: Qualified Code(s): I63.232 - Cerebral infarction due to unspecified occlusion or stenosis of left carotid arteries (5) Elevated troponin I level Current Visit: Yes Status: Acute Significantly elevated troponin in setting of surgery with CPA. Anemia requiring discontinuation of aspirin and heparin gtt. CVA and NIKOLE also noted. Medical therapy recommended last week - not an ideal candidate for LHC. EF mildly reduced, 45-50%. Continue to monitor cardiac status. (6) Abdominal aortic aneurysm Current Visit: Yes Status: Chronic Postoperative day #5 status post EVAR. Vascular surgery following. Qualifiers: Qualified Code(s): I71.4 - Abdominal aortic aneurysm, without rupture Discussion w patient/family: The assessment and plan as outlined above was discussed with the patient and/or family members who expressed understanding and agreement. All questions were answered. Thank you for involving us in the care of your patient. Please call with any questions. Subjective Principal diagnosis: Cardiac arrest Interval history: Patient seen and examined. Patient remains extubated. Hemodynamically, he remains stable. Remains in sinus rhythm. Mentation improving. Complains of back pain, which family states is chronic. Objective Vital Signs, Last 4 Hours Temp Pulse Resp BP Pulse Ox 05/24/16 09:20 82 20 106/71 94 L 05/24/16 08:15 75 20 115/83 97 05/24/16 08:05 97.7 F 05/24/16 07:15 78 19 120/77 96 05/24/16 06:00 80 18 118/83 97 General: No Apparent Distress, Other (Responds to questions with brief answers.) HEENT: Atraumatic, Normocephaly, Mucus Membranes Moist Neck: No JVD, Normal carotid pulses Cardiac: Reg Rate and Rhythm, Normal S1 and S2, No Murmur Lungs: Normal Breath Sounds, No Wheeze, Rales, Rhonchi Neuro: Other (More alert today. Generalized weakness.) Abdomen: Soft, Non-Tender Skin: No rashes noted on visualized skin Musculoskeletal: No Chest Wall Tenderness Extremities: No Clubbing, No Cyanosis, No Edema Results 05/23/16 16:15 05/24/16 04:05 Lab Results 05/23/16 05/23/16 05/24/16 16:15 16:15 04:05 Hgb 7.8 L Hct 22.5 L Sodium 131 L 135 L Potassium 4.0 3.8 Chloride 104 106 Carbon Dioxide 20 19 BUN 36 H 36 H Creatinine 2.10 H 1.96 H Glucose 131 H 120 H Calcium 7.9 L 8.1 L Magnesium 1.9 1.9 Total Bilirubin 1.5 H AST 38 H ALT 20 Alkaline Phosphatase 86 - Imaging and Cardiology Echo: report reviewed - VTE Documentation of Mechanical Device: Intermittent pneumatic compression device Consult Discharge Plan - Plan Referrals: John Peace MD [Primary Care Provider] - 05/24/16 9:45 am Salvador Bosch MD [Partnered Physician] - 06/28/16 1:00 pm Prescriptions: Atorvastatin [Lipitor] 40 mg PO HS #1 tablet
[2016-05-24 10:06] LABS: Basophils % 0.1 %; Eosinophils # 0.1 K/mcL (0.0-0.6); Eosinophils % 0.9 %; Hematocrit 24.2 % (37.5-50.1); Hemoglobin 8.3 g/dL (12.9-16.9); Immature Granulocytes % 1.3 % (0-4); Lymphocytes # 0.7 K/mcL (0.6-4.6); Lymphocytes % 5.6 %; Mean Corpuscular HGB Conc 34.3 g/dL (31.6-35.5); Mean Corpuscular Hemoglobin 30.3 pg (28.0-33.3); Mean Corpuscular Volume 88.3 fL (83.0-100.0); Mean Platelet Volume 9.9 fL (9.4-12.4); Monocytes # 1.2 K/mcL (0.0-1.3); Neutrophils # 9.8 K/mcL (1.6-8.9); Platelet Count 145 K/mcL (140-400); Red Blood Count 2.74 M/mcL (4.19-5.50); Red Cell Distribution Width 14.9 % (11.5-14.5); Segmented Neutrophils % 82.1 %
--- NOTE | 2016-05-24 11:44 | Event Note ---
Date of Encounter: 05/24/16 Time of Encounter: 11:42 Attending Attestation to Resident Note: The patient was seen and examined with the house staff. Care was discussed on multidisciplinary rounds. Full resident note is pending. This will serve as my addendum to the resident note. 1. Acute respiratory failure with hypoxia 2. Cardiac arrest 3. Shock 4. Acute CVA 5. Anemia due to acute blood loss 6. Acute renal failure 75-year-old white male with a medical history significant for coronary artery disease and peripheral vascular disease who presented with a cardiac arrest intraoperatively during an endograft repair of an abdominal aortic aneurysm. He was extubated 05/23/16, and he appears stable on nasal cannula. His shock appears to be resolved, and he is off vasopressors. Acute CVA with reported right-sided deficits. Continue supportive measures and avoid hypotension. Will begin PT/OT evaluation. Acute blood loss anemia related to left renal subscapular hematoma. We will continue to trend hemoglobin and transfuse for hemoglobin less than 7 or signs of acute bleeding. Acute renal failure is multifactorial and due to ATN/hypoperfusion and hematoma. Continue to trend urine output and Chem-7. Creatinine appears to have plateaued. His urine output is picking up, and he had a negative fluid balance over the past 48 hours. Of note, he is over 6 L positive for this admission. Appreciate nephrology assistance. Will discuss with surgical services the timing of transfer to stepdown unit.
[2016-05-24] MEDS: Norepinephrine 4 MG in D5% in Water 250 ML IVC SCH (11:48)
--- NOTE | 2016-05-24 12:42 | Vascular/[facility] Progress Note ---
Date of Encounter: 05/24/16 Time of Encounter: 12:20 - Assessment and plan (1) Abdominal aortic aneurysm Status: Chronic He is postoperative day #6 after endograft repair of his aneurysm. He remains hemodynamically stable without complaints. He is alert. His wounds are healing. He will be transferred to today. He will begin PT/OT. guest services officer with be consulted for discharge planning. Will recheck his labs tomorrow. Appreciate critcal care, nephrology and cardiology input. Qualifiers: Presence of rupture: without rupture Qualified Code(s): I71.4 - Abdominal aortic aneurysm, without rupture (2) CAD (coronary artery disease) Status: Chronic Qualifiers: Coronary Disease-Associated Artery/Lesion type: bypass graft [place] vs. transplanted heart: [place] heart Associated angina: without angina Qualified Code(s): I25.810 - Atherosclerosis of coronary artery bypass graft(s) without angina pectoris (3) Carotid artery disease Status: Chronic Qualifiers: Laterality: bilateral Qualified Code(s): I77.9 - Disorder of arteries and arterioles, unspecified (4) HLD (hyperlipidemia) Status: Chronic Qualifiers: Hyperlipidemia type: mixed hyperlipidemia Qualified Code(s): E78.2 - Mixed hyperlipidemia (5) HTN (hypertension) Status: Chronic Qualifiers: Hypertension type: essential hypertension Qualified Code(s): I10 - Essential (primary) hypertension (6) PAD (peripheral artery disease) Status: Chronic (7) Tobacco abuse Status: Chronic - Subjective Interval history: The patient is alert, oriented and comfortable. He denies chest pain or shortness of breath.. Vital Signs, Last 4 Hours Temp Pulse Resp BP Pulse Ox 05/24/16 12:08 79 05/24/16 12:06 99.7 F H 05/24/16 12:00 80 18 109/76 94 L 05/24/16 11:00 84 20 108/73 94 L 05/24/16 10:00 83 19 106/73 95 05/24/16 09:20 82 20 106/71 94 L - Physical Examination General: Present: Conversant, No Apparent Distress HEENT: Present: Trachea midline, Pupils equal Neck: Absent: JVD Cardiac: Present: Reg Rate and Rhythm, Normal S1 and S2 Lungs: Present: Normal Breath Sounds, No Wheeze, Rales, Rhonchi Neuro: Present: Alert and responsive, Other (intact motor and sensory function bilateral upper and lower extremities) Vascular: Present: Normal capillary refill, Surgical incisions (incisions healing well). Absent: Cyanosis Abdomen: Present: Soft, Non-tender, Other (left flank mild tenderness). Absent : Masses Skin: Present: No rashes noted on visualized skin - VTE Documentation of Mechanical Device: Intermittent pneumatic compression device Results 05/26/16 04:44 05/26/16 04:44 Lab Results, Last 24 hours 05/23/16 05/23/16 05/24/16 16:15 16:15 04:05 WBC Hgb 7.8 L Hct 22.5 L Plt Count Sodium 131 L 135 L Potassium 4.0 3.8 Chloride 104 106 Carbon Dioxide 20 19 BUN 36 H 36 H Creatinine 2.10 H 1.96 H Glucose 131 H 120 H Calcium 7.9 L 8.1 L Magnesium 1.9 1.9 Total Bilirubin 1.5 H AST 38 H ALT 20 Alkaline Phosphatase 86 05/24/16 09:40 WBC 11.9 H Hgb 8.3 L Hct 24.2 L Plt Count 145 Sodium Potassium Chloride Carbon Dioxide BUN Creatinine Glucose Calcium Magnesium Total Bilirubin AST ALT Alkaline Phosphatase Consult Discharge Plan - Plan Referrals: John Peace MD [Primary Care Provider] - (PATIENT IS GOING TO SWING BED, NO PCP APPOINTMENT NEEDED) Salvador Bosch MD [Partnered Physician] - 06/28/16 1:00 pm [place] DO [Partnered Physician] - (2-4 WEEKS) Justice Foreman DO [Partnered Physician] - (2-4 weeks) Prescriptions: OxyCODONE/APAP 7.5/325 [Percocet 7.5/325 MG] 1 each PO Q4HR PRN #40 tablet PRN Reason: postoperative pain
[2016-05-24] MEDS ORDERED: Nitroglycerin 0.4 MG TAB.SUBL SL PRN (15:15)
[2016-05-24] MEDS ORDERED: Magnesium Sulfate 2 GM in D5% in Water 100 ML IVPB PRN (15:15)
[2016-05-24] MEDS ORDERED: Naloxone 0.4 MG/ML INJ IVP PRN (15:15)
[2016-05-24] MEDS ORDERED: Calcium Gluconate 1,000 MG in D5% in Water 100 ML IVPB PRN (15:15)
[2016-05-24] MEDS ORDERED: *HR* OxyCODONE/APAP 7.5/325 TABLET PO PRN (15:15)
[2016-05-24] MEDS ORDERED: Potassium Phosphate 44 MEQ in 0.9 % Sodium Chloride 250 ML IVPB PRN (15:15)
[2016-05-24] MEDS: Insulin LISPRO 300 UNITS/3 ML VIAL SQ SCH ×2 (15:49→21:26)
[2016-05-24] MEDS: *HR* OxyCODONE/APAP 10/325 TABLET PO PRN ×2 (18:04→23:38)
--- NOTE | 2016-05-24 19:27 | Pulmonology Progress Note ---
Date of Encounter: 05/24/16 Time of Encounter: 08:00 Assessment and Plan (1) Acute respiratory failure with hypoxia Current Visit: Yes Status: Acute Patient is extubated and breathing well on his own with good effort without accessory muscle use. Oxygen saturation 100% on room air will continue to monitor patient oxygen saturation levels. (2) Cardiac arrest Current Visit: Yes Status: Acute Status post cardiac arrest that occurred intraoperatively during endograft repair for abdominal aortic aneurysm. Goal map greater than 65. Continue amiodarone due to V. fib. Vitals stable. Continuous cardiac monitoring. Coronary artery disease and prior CABG. Cardiology consult. (3) Shock circulatory Current Visit: Yes Status: Acute Secondary to cardiac arrest Resolving patient is now off vasopressors. Continue to monitor. (4) NIKOLE (acute kidney injury) Current Visit: Yes Status: Acute Subcapsular renal hematoma. No evidence of hydronephrosis. Renal following. Hold ASA due to renal hematoma. Hold beta lake due to hypotension. Hold ANDREA inhibitor due to hypotension/acute kidney injury. Patient's BUN and creatinine have been trending upward over the past 2 days. Today BUN 33 creatinine 2.09 with a GFR of 31. We will continue to monitor patient and trending daily labs. Monitoring of I's and O's as patient may begin to diurese himself. Chest x-ray demonstrated worsening CHF with 2 pleural effusions. Will reevaluate tomorrow with repeat chest x-ray. Nephrology is following. (5) Acute blood loss anemia Current Visit: Yes Status: Acute Hold aspirin and Plavix for acute blood loss anemia. Will continue subcutaneous heparin for prophylaxis DVT. (6) CVA (cerebral vascular accident) Current Visit: Yes Status: Acute Today patient is moving all 4 extremities. Resolution of previous neurological deficit of left upper extremity paralysis. We will continue to perform daily neurologic examination and monitor for further improvement. Head CT demonstrates subacute left watershed distribution CVA. Contributing factors include carotid disease and hypotension during cardiac arrest. Neurology plans for permissive hypertension. Goal RAAS -2. Qualifiers: CVA mechanism: occlusion Precerebral and cerebral artery: carotid artery Laterality of affected vessel: left Qualified Code(s): I63.232 - Cerebral infarction due to unspecified occlusion or stenosis of left carotid arteries (7) Abdominal aortic aneurysm Current Visit: Yes Status: Chronic Qualifiers: Presence of rupture: without rupture Qualified Code(s): I71.4 - Abdominal aortic aneurysm, without rupture (8) Elevated troponin I level Current Visit: Yes Status: Acute (9) DVT prophylaxis Current Visit: Yes Status: Acute (10) Carotid artery disease Current Visit: Yes Status: Chronic Qualifiers: Laterality: bilateral Qualified Code(s): I77.9 - Disorder of arteries and arterioles, unspecified (11) HLD (hyperlipidemia) Current Visit: Yes Status: Chronic Qualifiers: Hyperlipidemia type: mixed hyperlipidemia Qualified Code(s): E78.2 - Mixed hyperlipidemia (12) PAD (peripheral artery disease) Current Visit: Yes Status: Chronic (13) Tobacco abuse Current Visit: Yes Status: Chronic Subjective Principal diagnosis: Cardiac arrest Interval history: Patient is day 6 status post cardiac arrest that occurred intraoperatively during endograft repair of an abdominal aortic aneurysm. Patient has a past medical history significant for coronary artery disease, peripheral vascular disease. On admission to the ICU he was intubated and exhibiting cardiogenic shock was on vasopressors. Patient has since been extubated and is no longer requiring vasopressors additionally, he has continued to make significant clinical improvements on daily neurologic exam despite acute CVA. Patient appears well on clinical exam and is stable on nasal cannula saturation at 100%. Pt moving All 4 extremities, however right arm he is unable to abduct greater than 70 degrees due to a prior injury in which he slipped and fell on the ice several years ago and landed on his right shoulder. Family confirms this report and states that this is not part of a residual neurologic deficit but decreased range of motion is due to previous shoulder injury. Patient is alert and oriented to person, however he believes that it is September 1920 and that he is at the [facility]. It is unclear at this time whether this is in part due to delirium or attributable to acute CVA. Will continue supportive measures to avoid hypotension. Hemoglobin is improved and stable from prior continue to monitor as patient has suffered acute blood loss anemia. Plan to transfer out of ICU and begin PT/OT. Objective PUL Vital signs: Last Vital Signs Temp 99.2 F 05/24/16 17:21 Pulse 100 05/24/16 17:30 Resp 20 05/24/16 17:30 BP 127/85 05/24/16 17:30 Pulse Ox 92 L 05/24/16 17:30 General appearance: no acute distress Eyes: nonicteric ENT: oropharynx moist Neck: supple, no lymphadenopathy, no JVD Effort: normal Auscultation: bilateral: clear Results - Laboratory Findings CBC and BMP: 05/24/16 09:40 05/24/16 04:05 ABG ABG pH 7.46 pH Units (7.32-7.45) H 05/23/16 04:35 ABG pCO2 34 mmHg (35-45) L 05/23/16 04:35 ABG pO2 93 mmHg (85-104) 05/23/16 04:35 ABG O2 Saturation 98 % (95-98) 05/23/16 04:35 PT/INR, D-dimer PT 16.2 Seconds (9.4-12.1) H 05/21/16 07:20 Abnormal lab findings: Abnormal lab results WBC 11.9 K/mcL (4.3-11.1) H 05/24/16 09:40 RBC 2.74 M/mcL (4.19-5.50) L 05/24/16 09:40 Hgb 8.3 g/dL (12.9-16.9) L 05/24/16 09:40 Hct 24.2 % (37.5-50.1) L 05/24/16 09:40 RDW 14.9 % (11.5-14.5) H 05/24/16 09:40 Neutrophils # 9.8 K/mcL (1.6-8.9) H 05/24/16 09:40 Nucleated RBCs/100 WBC 0.1 /100 WBC (0) H 05/19/16 08:35 Platelet Estimate Decreased (Normal) L 05/21/16 04:06 PT 16.2 Seconds (9.4-12.1) H 05/21/16 07:20 APTT 110.6 Seconds (26.0-36.0) H* D 05/19/16 02:00 ABG pH 7.46 pH Units (7.32-7.45) H 05/23/16 04:35 ABG pCO2 34 mmHg (35-45) L 05/23/16 04:35 ABG Hematocrit 23 % (35-51) L 05/18/16 12:03 Glucose 201 mg/dL (60-95) H 05/18/16 12:03 Lactate 7.6 mmol/L (0.7-2.1) H* 05/18/16 12:03 Sodium 135 mEq/L (136-145) L 05/24/16 04:05 BUN 36 mg/dL (8-26) H 05/24/16 04:05 Creatinine 1.96 mg/dL (0.72-1.25) H 05/24/16 04:05 Est GFR ( Amer) 41 (> 60) L 05/24/16 04:05 Est GFR (Non-Af Amer) 34 (> 60) L 05/24/16 04:05 Glucose 120 mg/dL (70-99) H 05/24/16 04:05 POC Glucose 106 (58-89) H 05/24/16 15:47 Serum Osmolality 274 mOsm/kg (280-300) L 05/22/16 12:50 Calcium 8.1 mg/dL (8.6-10.8) L 05/24/16 04:05 Ionized Calcium 1.14 mmol/L (1.15-1.35) L 05/23/16 18:50 Total Bilirubin 1.5 mg/dL (0.2-1.2) H 05/24/16 04:05 AST 38 Units/L (5-34) H 05/24/16 04:05 Troponin I 9.44 ng/mL (0-0.03) H* 05/19/16 13:05 Serum Total Protein 4.8 g/dL (6.0-8.3) L 05/24/16 04:05 Albumin 2.0 g/dL (3.5-5.0) L 05/24/16 04:05 Albumin/Globulin Ratio 0.7 (1.1-2.2) L 05/24/16 04:05 Urine Clarity Turbid (Clear) A 05/22/16 12:50 Urine Protein 100 mg/dL (Neg-Trace) H 05/22/16 12:50 Urine Blood Large (Negative) H 05/22/16 12:50 Urine Microscopic RBC 5-15 per hpf (0-3) H 05/22/16 12:50 Urine Bacteria Many per hpf (None-Few) H 05/22/16 12:50 - Microbiology Findings Microbiology Findings: Microbiology, Last 48 Hours 05/18/16 22:35 Blood Culture - Final Peripheral Venipuncture No growth. 05/18/16 22:56 Blood Culture - Final Peripheral Venipuncture No growth. 05/21/16 09:30 Sputum Culture - Final Sputum - Clinical Findings Intake & Output: Intake & Output 05/24/16 05/24/16 05/24/16 07:59 15:59 23:59 Intake Total 60 / 60 360 / 360 Output Total 250 / 250 575 / 575 200 / 200 Balance -190 / -190 -215 / -215 -200 / -200 - VTE Documentation of Mechanical Device: Intermittent pneumatic compression device Consult Discharge Plan - Plan Referrals: John Peace MD [Primary Care Provider] - 05/24/16 9:45 am Salvador Bosch MD [Partnered Physician] - 06/28/16 1:00 pm Prescriptions: Atorvastatin [Lipitor] 40 mg PO HS #1 tablet
[2016-05-25] MEDS: *HR* Morphine 2 MG/ML SYRINGE IVP PRN ×3 (01:32→17:15)
[2016-05-25] MEDS ORDERED: Orphenadrine 60 MG/2 ML VIAL IVP ONE (01:35)
[2016-05-25] MEDS ORDERED: Acetaminophen IV 1,000 MG/100 ML INFUS..BTL IVPB ONE (01:35)
[2016-05-25] MEDS ORDERED: Benzonatate 100 MG CAPSULE PO PRN (01:36)
[2016-05-25] MEDS ORDERED: Ipratropium/Albuterol Neb 3 ML IH PRN (01:42)
[2016-05-25] MEDS: Benzonatate 100 MG CAPSULE PO SCH ×4 (02:12→20:31)
[2016-05-25 04:12] LABS: VBG HCO3 24.2 mEq/L (21-27); VBG PH 7.39 pH Units (7.32-7.42)
[2016-05-25 04:17] LABS: Ionized Calcium 1.17 mmol/L (1.15-1.35)
[2016-05-25 04:27] LABS: Magnesium 1.8 mg/dL (1.6-2.6); Phosphorous 3.2 mg/dL (2.3-4.7)
[2016-05-25] MEDS: *HR* Heparin 5,000 UNIT/ML VIAL SQ SCH ×2 (06:34→17:15)
[2016-05-25 07:13] LABS: Basophils % 0.2 %; Eosinophils # 0.2 K/mcL (0.0-0.6); Eosinophils % 1.3 %; Hematocrit 25.6 % (37.5-50.1); Hemoglobin 8.5 g/dL (12.9-16.9); Immature Granulocytes % 1.7 % (0-4); Lymphocytes # 1.1 K/mcL (0.6-4.6); Lymphocytes % 9.2 %; Mean Corpuscular HGB Conc 33.2 g/dL (31.6-35.5); Mean Corpuscular Volume 90.5 fL (83.0-100.0); Mean Platelet Volume 9.8 fL (9.4-12.4); Monocytes # 1.6 K/mcL (0.0-1.3); Monocytes % 13.4 %; Neutrophils # 8.9 K/mcL (1.6-8.9); Platelet Count 222 K/mcL (140-400); Red Blood Count 2.83 M/mcL (4.19-5.50); Red Cell Distribution Width 15.2 % (11.5-14.5); Segmented Neutrophils % 74.2 %
[2016-05-25 07:17] LABS: Calcium 8.1 mg/dL (8.6-10.8)
[2016-05-25] MEDS: Insulin LISPRO 300 UNITS/3 ML VIAL SQ SCH ×4 (07:33→20:30)
[2016-05-25] MEDS: Nicotine 21 MG PATCH.TD24 TD SCH (07:38)
[2016-05-25] MEDS: *HR* Amiodarone 200 MG TABLET PO SCH (07:42)
[2016-05-25] MEDS: Docusate Oral Soln 100 MG/10 ML UDC PO SCH ×2 (07:42→20:31)
[2016-05-25] MEDS: *HR* OxyCODONE/APAP 10/325 TABLET PO PRN ×3 (07:52→20:38)
[2016-05-25] MEDS ORDERED: Isosorbide MONOnitrate (24 HR) 60 MG TAB.ER.24H PO SCH (09:00)
--- NOTE | 2016-05-25 09:32 | Nephrology Progress Note ---
Date of Encounter: 05/25/16 Time of Encounter: 09:31 - Assessment and Plan (1) NIKOLE (acute kidney injury) Current Visit: Yes Status: Acute Improving. Nonoliguric acute kidney injury in the setting of hypotension requiring vasopressors, and acute blood loss anemia. He continues to have a negative fluid balance over the previous 24 hours and his urine output is increasing. Continue to follow a renal protective strategy and dose any medications accordingly. No renal replacement therapy needed at this time, patient remains with good urinary output, and no acute indications for AUTOM[employer]. (acidosis, electrolyte imbalances, significant volume overload, uremia) (2) Hyponatremia Current Visit: Yes Status: Resolved Improving. Patient with hypervolemic hyponatremia, 6 L positive from admission. Serum osmolality 274. Urine osmolality 422. Urine sodium 50. Chest x-ray with mild improvement of central pulmonary venous congestion. Auto diuresing well. Continue to monitor patient's volume status closely. Consider diuretic in the setting of volume overload. (3) Renal hematoma Current Visit: Yes Status: Acute CT abdomen and pelvis without contrast reveals an acute large left renal subcapsular hematoma measuring 4.5 cm in thickness and extending along the entire length of the kidney with parenchymal deformation. Mild free left pararenal retroperitoneal hemorrhage. Vascular surgery following. Recommended conservative management at this time. Anticoagulation has been reduced to subcutaneous heparin. Qualifiers: Encounter type: subsequent encounter Laterality: left Qualified Code(s): S37.012D - Minor contusion of left kidney, subsequent encounter (4) Acute blood loss anemia Current Visit: Yes Status: Acute In the setting of a large left renal subcapsular hematoma, pararenal retroperitoneal hemorrhage, left pelvic retroperitoneal hematoma, and bilateral diffuse pelvic and proximal thigh hemorrhage. Total of 7 units packed red blood cells have been transfuse at this time. Hemoglobin remained stable. Continue to monitor closely. (5) Cardiac arrest Current Visit: Yes Status: Acute Intraoperative cardiac arrest during endovascular AAA repair. Initial rhythm PEA followed by ventricular tachycardia. Transthoracic echocardiogram with left ventricular ejection fraction 45-50%. Amiodarone transitioned to oral. Cardiology following. Beta lake as well as ARB have been restarted. (6) Abdominal aortic aneurysm Current Visit: Yes Status: Chronic Postoperative day #7 status post EVAR. Anticoagulation has been held due to acute blood loss anemia in the setting of left renal hematoma. Vascular surgery following. Qualifiers: Presence of rupture: without rupture Qualified Code(s): I71.4 - Abdominal aortic aneurysm, without rupture (7) CVA (cerebral vascular accident) Current Visit: Yes Status: Acute Head CT notable for subacute watershed distribution CVA likely due to carotid disease with hypotension during to cardiac arrest. 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 New small complex mass in the lower left kidney concerning for a second neoplasm. (9) CAD (coronary artery disease) Current Visit: Yes Status: Chronic Patient with a known history of coronary artery disease, prior CABG. Aspirin held due to renal hematoma. Beta lake and ARB restarted. Cardiology following. Qualifiers: Coronary Disease-Associated Artery/Lesion type: bypass graft [place] vs. transplanted heart: [place] heart Associated angina: without angina Qualified Code(s): I25.810 - Atherosclerosis of coronary artery bypass graft(s) without angina pectoris Subjective Principal diagnosis: Cardiac arrest Interval history: Patient seen and examined at the bedside. Patient complains of chronic back pain as well as musculoskeletal chest pain status post CPR. Urine output remains good. He is net -600 mL in the last 24 hours. Objective - Vital Signs Vital signs: Vital Signs Temp Pulse Resp BP Pulse Ox 05/25/16 08:00 81 05/25/16 07:10 98.2 F 77 18 160/87 100 05/25/16 04:00 98 F 70 18 154/112 100 05/25/16 00:00 91 05/24/16 23:43 98.3 F 91 18 156/90 94 L 05/24/16 22:00 95 20 128/98 94 L 05/24/16 20:00 86 20 151/85 94 L 05/24/16 19:00 20 05/24/16 17:30 98 20 127/85 92 L 05/24/16 17:21 99.2 F 93 15 127/85 97 05/24/16 16:00 85 18 122/79 95 05/24/16 15:40 98.0 F 05/24/16 15:31 82 05/24/16 15:00 83 18 123/79 94 L 05/24/16 14:00 85 18 103/75 95 05/24/16 13:00 81 18 116/76 94 L 05/24/16 12:08 79 05/24/16 12:06 99.7 F H 05/24/16 12:00 80 18 109/76 94 L 05/24/16 11:00 84 20 108/73 94 L 05/24/16 10:00 83 19 106/73 95 Intake and Output 05/24/16 05/25/16 05/25/16 23:59 07:59 15:59 Intake Total 50 / 50 60 / 60 Output Total 200 / 200 475 / 475 Balance -200 / -200 -425 / -425 60 / 60 Intake: Oral 50 / 50 60 / 60 Output: Catheter 200 / 200 475 / 475 Other: Meal Breakfast Percent of Meal Consumed 0% Blood Glucose* 121 - General Appearance Exam: General: Patient is alert, appears to be in pain HEENT: Normocephalic atraumatic, pupils are equal round and reactive to light and accommodation, tympanic membrane is intact, nares is patent, mucous membranes moist, throat is not injected, no JVD, trachea is midline Cardiovascular: Regular rate and rhythm without murmur Respiratory: Lungs with trace rhonchi noted Abdomen: Soft, nontender, nondistended, positive bowel sounds in all 4 quadrants Extremities: Warm, dry, trace lower extremity edema Neuro: A&Ox3, speech is appropriate, cranial nerves II through XII are normal as tested - Lab 05/25/16 03:47 05/25/16 03:47 Most recent lab results ABG pH 7.46 pH Units (7.32-7.45) H 05/23/16 04:35 ABG pCO2 34 mmHg (35-45) L 05/23/16 04:35 ABG pO2 93 mmHg (85-104) 05/23/16 04:35 ABG HCO3 24.2 mEQ/L (21-27) 05/23/16 04:35 ABG O2 Saturation 98 % (95-98) 05/23/16 04:35 Calcium 8.1 mg/dL (8.6-10.8) L 05/25/16 03:47 Phosphorus 3.2 mg/dL (2.3-4.7) 05/25/16 03:47 Magnesium 1.8 mg/dL (1.6-2.6) 05/25/16 03:47 Urine Sodium 50.0 mEq/L 05/22/16 12:50 - VTE Documentation of Mechanical Device: Intermittent pneumatic compression device Consult Discharge Plan - Plan Referrals: John Peace MD [Primary Care Provider] - 05/24/16 9:45 am Salvador Bosch MD [Partnered Physician] - 06/28/16 1:00 pm Prescriptions: Atorvastatin [Lipitor] 40 mg PO HS #1 tablet
--- NOTE | 2016-05-25 11:13 | Cardiology Progress Note ---
Date of Encounter: 05/25/16 Time of Encounter: 11:10 Assessment and Plan (1) Cardiac arrest Current Visit: Yes Status: Acute Intraoperative cardiac arrest. Tansitioned to PO amiodarone yesterday. Overall, condition continues to slowly improve. No further inpatient cardiology recommendations. Followup with cardiology as outpatient. (2) CAD (coronary artery disease) Current Visit: Yes Status: Chronic [place] CAD, prior CABG. Recommend continue BB, statin, ARB therapy. Resume aspirin 81 mg daily when okay with vascular surgery (held due to anemia, renal hematoma). EF 45-50%. Qualifiers: Coronary Disease-Associated Artery/Lesion type: bypass graft [place] vs. transplanted heart: [place] heart Associated angina: without angina Qualified Code(s): I25.810 - Atherosclerosis of coronary artery bypass graft(s) without angina pectoris (3) NIKOLE (acute kidney injury) Current Visit: Yes Status: Acute Improving. Nonoliguric acute kidney injury in the setting of CPA/hypotension, anemia. Nephrology following. (4) CVA (cerebral vascular accident) Current Visit: Yes Status: Acute Head CT notable for subacute watershed distribution CVA likely due to carotid disease with hypotension during to cardiac arrest. Qualifiers: CVA mechanism: occlusion Precerebral and cerebral artery: carotid artery Laterality of affected vessel: left Qualified Code(s): I63.232 - Cerebral infarction due to unspecified occlusion or stenosis of left carotid arteries (5) Elevated troponin I level Current Visit: Yes Status: Acute Significantly elevated troponin in setting of surgery with CPA. Anemia requiring discontinuation of aspirin and heparin gtt. CVA and NIKOLE also noted. Medical therapy recommended last week - not an ideal candidate for LHC. EF mildly reduced, 45-50%. Continue to monitor cardiac status. (6) Abdominal aortic aneurysm Current Visit: Yes Status: Chronic Postoperative day #7 status post EVAR. Anticoagulation has been held due to acute blood loss anemia in the setting of left renal hematoma. Vascular surgery following. Qualifiers: Presence of rupture: without rupture Qualified Code(s): I71.4 - Abdominal aortic aneurysm, without rupture Discussion w patient/family: The assessment and plan as outlined above was discussed with the patient and/or family members who expressed understanding and agreement. All questions were answered. Thank you for involving us in the care of your patient. Please call with any questions. Subjective Principal diagnosis: Cardiac arrest Interval history: Patient seen and examined earlier today. Condition remains stable and slowly improving. Transfered to . Complains of reproducible chest/rib pain. Objective Vital Signs, Last 4 Hours Temp Pulse Resp BP Pulse Ox 05/25/16 10:59 97.8 F 51 16 100/62 98 05/25/16 08:00 81 General: Conversant, No Apparent Distress HEENT: Atraumatic, Normocephaly, Mucus Membranes Moist Neck: No JVD, Normal carotid pulses Cardiac: Reg Rate and Rhythm, Normal S1 and S2, No Murmur, Other (Reproducible tendereness around sternum and ribs. ) Lungs: Normal Breath Sounds, No Wheeze, Rales, Rhonchi Neuro: Alert and responsive, No focal deficits noted Abdomen: Soft, Non-Tender Skin: No rashes noted on visualized skin Musculoskeletal: No Chest Wall Tenderness Extremities: No Clubbing, No Cyanosis, No Edema, Normal Pulses Results 05/25/16 03:47 05/25/16 03:47 Lab Results 05/25/16 05/25/16 03:47 03:47 WBC 12.0 H Hgb 8.5 L Hct 25.6 L Plt Count 222 D Sodium 135 L Potassium 4.0 Chloride 107 Carbon Dioxide 18 L BUN 35 H Creatinine 1.84 H Glucose 116 H Calcium 8.1 L Magnesium 1.8 - Imaging and Cardiology Echo: report reviewed - VTE Documentation of Mechanical Device: Intermittent pneumatic compression device Consult Discharge Plan - Plan Referrals: John Peace MD [Primary Care Provider] - 05/24/16 9:45 am Salvador Bosch MD [Partnered Physician] - 06/28/16 1:00 pm Prescriptions: Atorvastatin [Lipitor] 40 mg PO HS #1 tablet
--- NOTE | 2016-05-25 14:32 | Electrocardiograph Report ---
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
[2016-05-26] MEDS: *HR* OxyCODONE/APAP 10/325 TABLET PO PRN ×2 (01:41→07:52)
[2016-05-26 05:04] LABS: Basophils % 0.3 %; Eosinophils # 0.3 K/mcL (0.0-0.6); Eosinophils % 2.4 %; Hematocrit 24.6 % (37.5-50.1); Hemoglobin 8.2 g/dL (12.9-16.9); Immature Granulocytes % 2.7 % (0-4); Lymphocytes # 1.3 K/mcL (0.6-4.6); Mean Corpuscular HGB Conc 33.3 g/dL (31.6-35.5); Mean Corpuscular Hemoglobin 30.6 pg (28.0-33.3); Mean Corpuscular Volume 91.8 fL (83.0-100.0); Mean Platelet Volume 9.5 fL (9.4-12.4); Monocytes # 1.6 K/mcL (0.0-1.3); Monocytes % 13.8 %; Platelet Count 250 K/mcL (140-400); Red Blood Count 2.68 M/mcL (4.19-5.50); Red Cell Distribution Width 15.5 % (11.5-14.5); Segmented Neutrophils % 69.8 %
[2016-05-26 05:07] LABS: Neutrophils # 8.2 K/mcL (1.6-8.9)
[2016-05-26 05:21] LABS: Calcium 8.3 mg/dL (8.6-10.8)
[2016-05-26 05:26] LABS: Hypochromasia Present (Not Present); Platelet Estimate Normal (Normal); Polychromasia 1+ (Not Present)
[2016-05-26] MEDS: *HR* Heparin 5,000 UNIT/ML VIAL SQ SCH (05:35)
[2016-05-26] MEDS: Benzonatate 100 MG CAPSULE PO SCH ×2 (07:51→15:12)
[2016-05-26] MEDS: Docusate Oral Soln 100 MG/10 ML UDC PO SCH (07:51)
[2016-05-26] MEDS: Nicotine 21 MG PATCH.TD24 TD SCH (07:52)
[2016-05-26] MEDS: *HR* Amiodarone 200 MG TABLET PO SCH (07:52)
[2016-05-26] MEDS: Insulin LISPRO 300 UNITS/3 ML VIAL SQ SCH ×2 (07:56→12:14)
--- NOTE | 2016-05-26 09:17 | Nephrology Progress Note ---
Date of Encounter: 05/26/16 Time of Encounter: 09:15 - Assessment and Plan (1) NIKOLE (acute kidney injury) Current Visit: Yes Status: Acute Improving. Nonoliguric acute kidney injury in the setting of hypotension requiring vasopressors, and acute blood loss anemia. He continues to have a negative fluid balance over the previous 24 hours and his urine output is increasing. Continue to follow a renal protective strategy and dose any medications accordingly. 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 (acidosis, electrolyte imbalances, significant volume overload, uremia) (2) Renal hematoma Current Visit: Yes Status: Acute CT abdomen and pelvis without contrast reveals an acute large left renal subcapsular hematoma measuring 4.5 cm in thickness and extending along the entire length of the kidney with parenchymal deformation. Mild free left pararenal retroperitoneal hemorrhage. Vascular surgery following. Recommended conservative management at this time. Anticoagulation has been reduced to subcutaneous heparin. Qualifiers: Encounter type: subsequent encounter Laterality: left Qualified Code(s): S37.012D - Minor contusion of left kidney, subsequent encounter (3) Acute blood loss anemia Current Visit: Yes Status: Acute In the setting of a large left renal subcapsular hematoma, pararenal retroperitoneal hemorrhage, left pelvic retroperitoneal hematoma, and bilateral diffuse pelvic and proximal thigh hemorrhage. Total of 7 units packed red blood cells have been transfuse at this time. Hemoglobin remained stable. Continue to monitor closely. (4) Cardiac arrest Current Visit: Yes Status: Acute Intraoperative cardiac arrest during endovascular AAA repair. Initial rhythm PEA followed by ventricular tachycardia. Transthoracic echocardiogram with left ventricular ejection fraction 45-50%. Amiodarone transitioned to oral. Cardiology following. Beta lake as well as ARB have been held after hypotension yesterday. Would consider restarting lower dose BB and ARB if patients BP can tolerate. (5) Abdominal aortic aneurysm Current Visit: Yes Status: Chronic Postoperative day #8 status post EVAR. Anticoagulation has been held due to acute blood loss anemia in the setting of left renal hematoma. Vascular surgery following. Qualifiers: Presence of rupture: without rupture Qualified Code(s): I71.4 - Abdominal aortic aneurysm, without rupture (6) CVA (cerebral vascular accident) Current Visit: Yes Status: Acute Head CT notable for subacute watershed distribution CVA likely due to carotid disease with hypotension during to cardiac arrest. 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 New small complex mass in the lower left kidney concerning for a second neoplasm. (8) CAD (coronary artery disease) Current Visit: Yes Status: Chronic Patient with a known history of coronary artery disease, prior CABG. Aspirin held due to renal hematoma. Beta lake and ARB held due to hypotension. Consider restarting these at lower dose if patients BP can tolerate. Cardiology following. Qualifiers: Coronary Disease-Associated Artery/Lesion type: bypass graft [place] vs. transplanted heart: [place] heart Associated angina: without angina Qualified Code(s): I25.810 - Atherosclerosis of coronary artery bypass graft(s) without angina pectoris Subjective Principal diagnosis: Cardiac arrest Interval history: Patient seen and examined at the bedside. Patient complains of chronic back pain as well as musculoskeletal chest pain status post CPR. Urine output remains good. He is net -665 mL in the last 24 hours. Unfortunately after resuming his BP medications yesterday he had a large drop in his BP and they have been held at this time. Objective - Vital Signs Vital signs: Vital Signs Temp Pulse Resp BP Pulse Ox 05/26/16 07:40 98.2 F 75 20 109/88 92 L 05/26/16 04:02 98.1 F 53 16 97/62 96 05/26/16 01:44 111/73 05/26/16 00:17 97.8 F 54 18 98/61 90 L 05/25/16 20:20 53 16 106/71 90 L 05/25/16 16:00 47 05/25/16 15:51 98.2 F 49 18 94/65 96 05/25/16 11:23 51 05/25/16 10:59 97.8 F 51 16 100/62 98 Intake and Output 05/25/16 05/26/16 05/26/16 23:59 07:59 15:59 Intake Total 120 / 120 240 / 240 Output Total 100 / 100 Balance 240 / 240 Intake: Oral 120 / 120 240 / 240 Output: Urine 100 / 100 Other: Meal Breakfast Percent of Meal Consumed 5% # Voids 1 Blood Glucose* 146 129 - General Appearance Exam: General: Patient is alert, appears to be in pain HEENT: Normocephalic atraumatic, pupils are equal round and reactive to light and accommodation, tympanic membrane is intact, nares is patent, mucous membranes moist, throat is not injected, no JVD, trachea is midline Cardiovascular: Regular rate and rhythm without murmur Respiratory: Lungs with trace rhonchi noted Abdomen: Soft, nontender, nondistended, positive bowel sounds in all 4 quadrants Extremities: Warm, dry, trace lower extremity edema Neuro: A&Ox3, speech is appropriate, cranial nerves II through XII are normal as tested - Lab 05/26/16 04:44 05/26/16 04:44 Most recent lab results ABG pH 7.46 pH Units (7.32-7.45) H 05/23/16 04:35 ABG pCO2 34 mmHg (35-45) L 05/23/16 04:35 ABG pO2 93 mmHg (85-104) 05/23/16 04:35 ABG HCO3 24.2 mEQ/L (21-27) 05/23/16 04:35 ABG O2 Saturation 98 % (95-98) 05/23/16 04:35 Calcium 8.3 mg/dL (8.6-10.8) L 05/26/16 04:44 Phosphorus 3.2 mg/dL (2.3-4.7) 05/25/16 03:47 Magnesium 2.3 mg/dL (1.6-2.6) 05/25/16 14:24 Urine Sodium 50.0 mEq/L 05/22/16 12:50 - VTE Documentation of Mechanical Device: Intermittent pneumatic compression device Consult Discharge Plan - Plan Referrals: John Peace MD [Primary Care Provider] - 05/24/16 9:45 am Salvador Bosch MD [Partnered Physician] - 06/28/16 1:00 pm Prescriptions: Atorvastatin [Lipitor] 40 mg PO HS #1 tablet
[2016-05-26 16:02] VITALS: BP 90/65
--- NOTE | 2016-05-26 16:49 | Vascular/[facility] Progress Note ---
Date of Encounter: 05/25/16 Time of Encounter: 16:20 - Assessment and plan (1) Abdominal aortic aneurysm Status: Chronic He is postoperative day #7 after endograft repair of his aneurysm. He remains hemodynamically stable without complaints. He is healing well. He continues to make good urine. His creatinine is relatively stable. He will continue with PT/OT. He will likely be discharged in the next 1-2 days. Qualifiers: Presence of rupture: without rupture Qualified Code(s): I71.4 - Abdominal aortic aneurysm, without rupture (2) CAD (coronary artery disease) Status: Chronic Qualifiers: Coronary Disease-Associated Artery/Lesion type: bypass graft [place] vs. transplanted heart: [place] heart Associated angina: without angina Qualified Code(s): I25.810 - Atherosclerosis of coronary artery bypass graft(s) without angina pectoris (3) Carotid artery disease Status: Chronic Qualifiers: Laterality: bilateral Qualified Code(s): I77.9 - Disorder of arteries and arterioles, unspecified (4) HLD (hyperlipidemia) Status: Chronic Qualifiers: Hyperlipidemia type: mixed hyperlipidemia Qualified Code(s): E78.2 - Mixed hyperlipidemia (5) HTN (hypertension) Status: Chronic Qualifiers: Hypertension type: essential hypertension Qualified Code(s): I10 - Essential (primary) hypertension (6) PAD (peripheral artery disease) Status: Chronic (7) Tobacco abuse Status: Chronic - Subjective Interval history: The patient is reports that he is comfortable. He has some postoperative pain. He denies chest pain or shortness of breath.. Vital Signs, Last 4 Hours Temp Pulse Resp BP Pulse Ox 05/26/16 15:58 98.1 F 52 20 90/65 95 - Physical Examination General: Present: Conversant, Well nourished HEENT: Present: Pupils equal Cardiac: Present: Reg Rate and Rhythm, Normal S1 and S2 Lungs: Present: Normal Breath Sounds, No Wheeze, Rales, Rhonchi Neuro: Present: Alert and responsive, No focal deficits noted, Motor nerves grossly intact, Sensory nerves grossly intact Vascular: Present: Normal capillary refill. Absent: Cyanosis, Edema Abdomen: Present: Soft, Non-tender. Absent: Masses - VTE Documentation of Mechanical Device: Intermittent pneumatic compression device Results 05/26/16 04:44 05/26/16 04:44 Lab Results, Last 24 hours 05/26/16 05/26/16 04:44 04:44 WBC 11.8 H Hgb 8.2 L Hct 24.6 L Plt Count 250 Sodium 137 Potassium 4.0 Chloride 108 Carbon Dioxide 21 BUN 46 H D Creatinine 1.88 H Glucose 133 H Calcium 8.3 L Consult Discharge Plan - Plan Referrals: John Peace MD [Primary Care Provider] - (PATIENT IS GOING TO SWING BED, NO PCP APPOINTMENT NEEDED) Salvador Bosch MD [Partnered Physician] - 06/28/16 1:00 pm [place] DO [Partnered Physician] - (2-4 WEEKS) Justice Foreman DO [Partnered Physician] - (2-4 weeks) Prescriptions: OxyCODONE/APAP 7.5/325 [Percocet 7.5/325 MG] 1 each PO Q4HR PRN #40 tablet PRN Reason: postoperative pain
--- NOTE | 2016-05-26 16:51 | Discharge Summary ---
Date of Encounter: 05/26/16 Time of Encounter: 16:45 - Discharge Diagnosis (1) Abdominal aortic aneurysm Priority: Primary Status: Chronic Comments: The patient underwent partial endograft repair of his aortic aneurysm. His incisions are healing well. He denies abdominal, flank or back pain. He will be discharged today. Qualifiers: Presence of rupture: without rupture Qualified Code(s): I71.4 - Abdominal aortic aneurysm, without rupture (2) CAD (coronary artery disease) Priority: Secondary Status: Chronic Comments: The patient has an extensive history of coronary artery disease. He has undergone CABG twice. He had a cardiac arrest during his endograft repair and required CPR. He currently denies chest pain or shortness of breath. Qualifiers: Coronary Disease-Associated Artery/Lesion type: bypass graft [place] vs. transplanted heart: [place] heart Associated angina: without angina Qualified Code(s): I25.810 - Atherosclerosis of coronary artery bypass graft(s) without angina pectoris (3) Carotid artery disease Priority: Secondary Status: Chronic Comments: The patient has a history of carotid artery disease. He was found during his hospitalization to have a subacute cerebraovascular accident on CT scan. An acute cerebrovascular accident was ruled out. He currently denies any focal neurologic deficits. Qualifiers: Laterality: bilateral Qualified Code(s): I77.9 - Disorder of arteries and arterioles, unspecified (4) HLD (hyperlipidemia) Priority: Secondary Status: Chronic Qualifiers: Hyperlipidemia type: mixed hyperlipidemia Qualified Code(s): E78.2 - Mixed hyperlipidemia (5) HTN (hypertension) Priority: Secondary Status: Chronic Qualifiers: Hypertension type: essential hypertension Qualified Code(s): I10 - Essential (primary) hypertension (6) PAD (peripheral artery disease) Priority: Secondary Status: Chronic (7) Tobacco abuse Priority: Secondary Status: Chronic Comments: The patient was counseled regarding smoking cessation and provided with a nicotine patch. (8) Chronic kidney disease, stage III (moderate) Priority: Secondary Status: Acute Comments: The patient has chronic kidney disease stage III. He did develop increased creatinine due to his hypotension during his hopsitalization. He continued to make urine and his creatinine is improving at discharge. (9) Chronic disease anemia Priority: Secondary Status: Chronic Comments: The patient has chronic disease anemia with acute expected postoperative blood loss anemia and was transfused PRBCs during his hospitalization. He is hemodynamically stable. (10) Left renal mass Priority: Secondary Status: Chronic Comments: The patient has a large left renal cystic mass that has been followed by Urology. A hematoma was suspected in the left renal capsule due it's increase in size while the patient was anticoagulated. He did not develop any signficant retroperitoneal hematoma. (11) COPD (chronic obstructive pulmonary disease) Priority: Secondary Status: Chronic Comments: The patient has COPD. He required prolonged ventilatory support after his procedure. Qualifiers: COPD type: emphysema Emphysema type: panlobular Qualified Code(s): J43.1 - Panlobular emphysema - Discharge Medications Prescriptions: OxyCODONE/APAP 7.5/325 [Percocet 7.5/325 MG] 1 each PO Q4HR PRN #40 tablet PRN Reason: postoperative pain Home Medications: Aspirin 81 mg PO DAILY 05/18/16 [History] Atorvastatin [Lipitor] 40 mg PO HS 05/18/16 [History] Docusate [Colace] 100 mg PO BID 05/18/16 [History] Hydrocodone/Acetaminophen [[place]ple 5-325 Tablet] 1 tab PO TID PRN 05/18/16 [ History] Isosorbide MONOnitrate (24 HR) [Imdur] 60 mg PO DAILY 05/18/16 [History] Losartan [Cozaar] 25 mg PO DAILY 05/18/16 [History] Nitroglycerin [Nitrostat] 0.4 mg SL AD PRN 05/18/16 [History] Omeprazole [PriLOSEC] 20 mg PO DAILY 05/18/16 [History] Ranolazine [Ranexa] 500 mg PO BID 05/18/16 [History] Amiodarone [Cordarone] 200 mg PO DAILY tablet 05/26/16 [Rx] Benzonatate [Tessalon] 100 mg PO TID capsule 05/26/16 [Rx] Benzonatate [Tessalon] 100 mg PO TID PRN #0 capsule 05/26/16 [Rx] Cyclobenzaprine [Flexeril] 10 mg PO TID PRN #0 tablet 05/26/16 [Rx] Nicotine Patch [Nicoderm] 21 mg TD DAILY #0 patch.td24 05/26/16 [Rx] OxyCODONE/APAP 7.5/325 [Percocet 7.5/325 MG] 1 each PO Q4HR PRN #40 tablet 05/26 [Rx] Allergies/Adverse Reactions: Allergies pentazocine [From Talwin] Allergy (Verified 05/18/16 06:55) See Comments simvastatin Allergy (Verified 05/18/16 06:55) See Comments Varenicline [From Chantix] Allergy (Verified 05/18/16 06:55) See Comments Amoxicillin [From Augmentin] Adverse Reaction (Verified 05/18/16 06:55) Nausea clavulanic acid [From Augmentin] Adverse Reaction (Verified 05/18/16 06:55) Nausea codeine Adverse Reaction (Verified 05/18/16 06:55) Nausea Procedures/tests Complete & Pending: Procedures Performed prior 72 hours Category Date Time Status ECG 12 lead ECG [ECG] Routine Y 05/25/16 00:46 Completed Date of admission: 05/18/16 12:04 Primary care physician: John Peace MD Consults: 05/18/16 13:30 Consult to Cardiology [CONS] Routine Comment: Consulting Provider: Cardiology [place] Reason for Consult: Cardiac Arrest Call Completed: Yes 05/19/16 08:14 Consult to Nephrology [CONS] Routine Consulting Provider: [facility] Reason for Consult: NIKOLE Call Completed: Yes 05/20/16 12:49 Consult to Neurology [CONS] Stat Consulting Provider: Rebel Walsh Reason for Consult: CVA Time Notified: 12:49 Call Completed: Yes 05/22/16 12:04 consult to reconciling clerk [Consult to Nutrition] [CONS] Routine Comment: Consulting Provider: NUTRITION Reason for Dietary Consult: TF Start and Manage 05/24/16 15:15 Consult to Occupational Therapy [CONS] Routine Comment: Evaluate, develop and implement POC Consult to Physical Therapy [CONS] Routine Comment: Evaluate, develop and implement POC Consult to Investment Strategist [CONS] Routine Reason for SW Consult: Discharge planning. Possible discharge on 05/26/16. Procedure(s) Performed: Endograft repair of abdominal aortic aneurysm. Discharging clinician: Salvador Bosch Anticipated date of discharge: 05/26/16 - Patient Status Disposition: Transfer Inpatient Rehab Fac Condition: Good Functional capacity at discharge: uses cane/walker Overall status at discharge: patient is progressing back to baseline - Discharge Instructions Follow Up With: John Paece MD [Primary Care Provider] - (PATIENT IS GOING TO SWING BED, NO PCP APPOINTMENT NEEDED) Salvador Bosch MD [Partnered Physician] - 06/28/16 1:00 pm [place] DO [Partnered Physician] - (2-4 WEEKS) Justice Foreman DO [Partnered Physician] - (2-4 weeks) - Diet and Activity Activity: as per physical therapy, increase activity as tolerated Diet: low fat, low cholesterol - Hospital Course Hospital course: Mr. Rosado is a 75 year old male with mutilple medical comorbidities who previously underwent an aortobifemoral bypass graft for peripheral vascular disease. 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 Due to the presence of his bypass graft anastamosis and the size of the aneurysm, he was admitted to [facility] and taken to the OR on 05/18/16 for endograft repair. During the procedure, the patient had a cardiac arrest. He required CPR with cardioversion due to arrhythmias. At this time, his aneurysm was partially repaired. His wounds were closed and he was transferred to the intensive care unit. He remained in cardiogenic shock and required pressors, PRBCS and mechanical ventilation. He was noted to have an elevated troponin. Critical Care, Nephrology and Cardiology consults were obtained. On postoperative day #1 he remained intubated and seated. He was started on Heparin. His pressors were weaned as well as his ventilator support. His pressors were discontinued by postoperative day #2. During a sedation holiday, he appeared to have a neurologic deficit. A CT of the head revealed a subacute left hemispheric cerebrovascular accident, but an acute stroke was not identified. On postoperative day #3 his hemoglobin decreased. He had a CT of the abdomen and pelvis which revealed a left renal subcapsular hematoma surrounding his previously diagnosed left cystic renal mass. Given his cystic renal mass a hematoma was expected given the anticoagulation. His heparin was discontinued and he received PRBCs. He remained hemodynamically stable on postoperative day #3 and #4. On postoperative day #5 he was extubated. He was alert without any focal neurologic deficits. He remained stable and was transferred to the floor on postoperative day #6. Physical therapy and occupational therapy were initiated. He continued with therapy and remained stable on postoperative day # 7. On postoperative day #8, he was alert, oriented and comfortable. He had no neurologic deficits and his wounds were healing. He was discharged to rehab in stable condition on postoperative day #8. - Time Spent with Patient Total time spent providing and/or coordinating discharge services: Exam Vital Signs, Last 4 Hours Temp Pulse Resp BP Pulse Ox 05/26/ 15:58 98.1 F 52 20 90/65 95 General: Present: Conversant HEENT: Present: Atraumatic, Pupils equal Neck: Absent: JVD Cardiac: Present: Reg Rate and Rhythm Lungs: Present: Normal Breath Sounds, No Wheeze, Rales, Rhonchi Neuro: Present: Alert and responsive, No focal deficits noted, Motor nerves grossly intact, Sensory nerves grossly intact Abdomen: Present: Soft, Non-tender. Absent: Masses Vascular: Present: Normal capillary refill, Surgical incisions (incisions clean , dry and intact without erythema or drainage). Absent: Cyanosis, Edema - VTE Documentation of Mechanical Device: Intermittent pneumatic compression device
--- NOTE | 2016-05-26 17:10 | Physician Discharge Referral ---
ExtendedCare Referral Info Transfer To: Rehab Provider in Charge after Transfer: PCP Institutional Level of Care: Skilled - Diagnosis (1) Abdominal aortic aneurysm Priority: Primary Status: Chronic (2) CAD (coronary artery disease) Priority: Secondary Status: Chronic (3) Carotid artery disease Priority: Secondary Status: Chronic (4) HLD (hyperlipidemia) Priority: Secondary Status: Chronic (5) HTN (hypertension) Priority: Secondary Status: Chronic (6) PAD (peripheral artery disease) Priority: Secondary Status: Chronic (7) Tobacco abuse Priority: Secondary Status: Chronic (8) Chronic kidney disease, stage III (moderate) Priority: Secondary Status: Acute Expected Duration of Placement: < 30 days Prognosis: Good Aware of Diagnosis: Patient Aware of Prognosis: Patient - Transfer Medications Prescriptions: OxyCODONE/APAP 7.5/325 [Percocet 7.5/325 MG] 1 each PO Q4HR PRN #40 tablet PRN Reason: postoperative pain Home Medications: Aspirin 81 mg PO DAILY 05/18/16 [History] Atorvastatin [Lipitor] 40 mg PO HS 05/18/16 [History] Docusate [Colace] 100 mg PO BID 05/18/16 [History] Hydrocodone/Acetaminophen [Wolf 5-325 Tablet] 1 tab PO TID PRN 05/18/16 [ History] Isosorbide MONOnitrate (24 HR) [Imdur] 60 mg PO DAILY 05/18/16 [History] Losartan [Cozaar] 25 mg PO DAILY 05/18/16 [History] Nitroglycerin [Nitrostat] 0.4 mg SL AD PRN 05/18/16 [History] Omeprazole [PriLOSEC] 20 mg PO DAILY 05/18/16 [History] Ranolazine [Ranexa] 500 mg PO BID 05/18/16 [History] Amiodarone [Cordarone] 200 mg PO DAILY tablet 05/26/16 [Rx] Benzonatate [Tessalon] 100 mg PO TID capsule 05/26/16 [Rx] Benzonatate [Tessalon] 100 mg PO TID PRN #0 capsule 05/26/16 [Rx] Cyclobenzaprine [Flexeril] 10 mg PO TID PRN #0 tablet 05/26/16 [Rx] Nicotine Patch [Nicoderm] 21 mg TD DAILY #0 patch.td24 05/26/16 [Rx] OxyCODONE/APAP 7.5/325 [Percocet 7.5/325 MG] 1 each PO Q4HR PRN #40 tablet 05/26 [Rx] Allergies/Adverse Reactions: Allergies pentazocine [From Talwin] Allergy (Verified 05/18/16 06:55) See Comments simvastatin Allergy (Verified 05/18/16 06:55) See Comments Varenicline [From Chantix] Allergy (Verified 05/18/16 06:55) See Comments Amoxicillin [From Augmentin] Adverse Reaction (Verified 05/18/16 06:55) Nausea clavulanic acid [From Augmentin] Adverse Reaction (Verified 05/18/16 06:55) Nausea codeine Adverse Reaction (Verified 05/18/16 06:55) Nausea - Respiratory Orders Smoking Cessation: Smoking cessation has been advised. For more information, call the [place] Tobacco Quit Line at 9-959-FZQW-NOW. - Lab Orders Lab Orders: CBC (1 week), Other (include drug levels w/frequency) (Renal function panel in 1 week.) - Ancillary Orders May use pressure relief devices daily prn, May go on LEONARDO w/family/respon alliance party w /meds at nurse discretion PRN, May have alcoholic beverages - Advance Directives Living Will: No Power of Furnace Combination Analyst: No Code Status: Full Code (Patient and family request full code status) - Mobility Orders Ambulate - Rehabiliation Orders Rehab Potential: Good Rehab Orders: ROM Exercises, Evaluation for Physical Therapy, Evaluation for Occupational Therapy - Treatments Skin tear care topically daily PRN per policy, May check for fecal impaction rectally daily PRN, Fleet enema rectally every other day PRN cleansing purposes - Diet Orders Cardiac CERTIFICATION: I certify that the transfer of the above named patient to an Extended Care Facility is necessary for the continuing treatment of the diagnosis listed. The above information is true and accurate reflection of patient's current condition. Confidential - Redisclosure prohibited without a patient's written consent.
== END 2016-05-26 19:32 | disposition other institution (70) | DRG 268 ==
LOC: SAMDAY 06:26 → ICNU 12:04 → 2NNU 05-24 17:12
PROVIDERS: ADMIT Surgery; ATTEND Surgery